=== PATIENT | female | born 1955 | race Caucasian/White ===

== ENCOUNTER 2021-01-28 09:39 | Emergency (ER) | payer MEDICARE, SELFPAY ==
--- NOTE | ~2021-01-28 | CT_ITS ---
EXAMINATION: CT ABDOMEN AND PELVIS WITHOUT CONTRAST CLINICAL INFORMATION: Right flank and abdominal pain evaluate for kidney stone/appendicitis COMPARISON: None TECHNIQUE: Multidetector volumetric imaging was performed from the superior aspect of the liver through the pubic symphysis. Sagittal and coronal reformatted images were obtained on the technologist's workstation. This CT examination was performed using dose optimization techniques as appropriate, variously including the following: *Automated exposure control *Adjustment of mA and/or kV according to patient size (this includes techniques or standardized protocols for targeted exams where dose is matched to indication/reason for exam; i.e. extremities or head) *Use of iterative reconstruction technique DLP: 745.05 mGy-cm FINDINGS: LUNG BASES: There is a 0.6 cm nodular density along the posterior aspect of the right lower lobe (series 4, image 78).Reticular nodule opacities along the posterior peripheral lower lung bone likely represent atelectasis with an element of scarring. The heart is not enlarged. There is no pericardial effusion. Coronary artery calcifications are noted. LIVER, GALLBLADDER, AND BILIARY TREE: The liver is normal in size, shape, and attenuation. No focal hepatic lesion or biliary ductal dilatation is present. The gallbladder is unremarkable with no evidence of radiopaque gallstones, gallbladder wall thickening, or obvious pericholecystic inflammatory changes. PANCREAS: Fatty infiltration of the pancreas. SPLEEN: Unremarkable. ADRENAL GLANDS: Unremarkable. KIDNEYS AND URETERS: There is right-sided perinephric stranding with mild hydroureteronephrosis and mild right-sided perinephric stranding. No definite ureteral calculi is identified along the course of the right ureter. There is no left-sided nephrolithiasis or hydronephrosis. BLADDER: Unremarkable. GASTROINTESTINAL TRACT: Colonic diverticulosis without acute diverticulitis The small and large bowel are unremarkable. The appendix is normal in caliber without secondary signs of appendicitis. ABDOMINAL WALL: Tiny fat filled umbilical hernia. LYMPH NODES: Normal. VASCULAR: Dominantly aorta is nonaneurysmal. Atherosclerotic calcifications of the abdominal aorta and its branches are noted. PELVIC VISCERA: Coarse calcification in the right pelvis measuring 0.9 x 0.9 cm, possibly adnexal/ovarian in origin, nonspecific. OSSEOUS STRUCTURES: Multilevel degenerative changes of the thoracolumbar spine greatest L3-L4. Suggestion of anterior wedging of T11, age indeterminate. Very mild grade 1 anterolisthesis of L4 on L5. Levocurvature of the lower lumbar spine. 3 mm bone island in the left femoral head. No large lytic or blastic lesions. CT/CT abdomen pelvis wo con IMPRESSION: 1. Right-sided perinephric stranding with mild hydroureteronephrosis and mild right-sided perinephric stranding. No definite ureteral calculi is identified along the course of the right ureter. Findings may represents a recently passed calculus though no intraluminal urinary bladder calculus is identified. Correlation for possible passage of stone. 2. Visualized appendix is normal in caliber without secondary signs of appendicitis. 3. 0.6 cm pleural based nodular density along the posterior aspect of the right lower lobe. Additional reticular nodule opacities along the posterior peripheral lower lung bone likely represent atelectasis with an element of scarring though pleural-based nodular density is not excluded. 4. Coarse calcification in the right pelvis measuring 0.9 x 0.9 cm, possibly adnexal/ovarian in origin, nonspecific. 5. Fatty infiltration of the pancreas 6. Colonic diverticulosis without acute diverticulitis. 7. Multilevel degenerative changes of the thoracolumbar spine greatest at L3-L4 with suggestion of anterior wedging of T11, age indeterminate.
[2021-01-28 09:45] VITALS: BP 223/101; PULSE 79; RESP 18; TEMP 36.6; O2SAT 97; BMI 26.6
--- NOTE | 2021-01-28 09:49 | ED.ABDPAIN ---
HPI - Abdominal Pain General Chief Complaint: Abdominal Pain Stated Complaint: Flank Pain Time Seen by Provider: 01/28/21 09:49 History of Present Illness HPI narrative: Patient presents for of onset of severe right flank pain and vomiting which began 2 hours ago, for the past 2 days preceding this she has had some dysuria some burning with urination and some frequency She denies fever or chills she has had no injury, no history of kidney stones Related Data Previous Rx's Medication Instructions Recorded cefuroxime axetil 500 mg PO BID #14 tab 01/28/21 ibuprofen 600 mg PO Q6H PRN #14 tab 01/28/21 oxycodone 5 mg PO Q6H PRN #14 tab 01/28/21 Allergies Allergy/AdvReac Type Severity Reaction Status Date / Time egg [EGGS] Allergy Mild DIARRHEA Verified 01/31/21 09:43 eggs Allergy Unknown Stomach Verified 01/31/21 09:43 Upset Review of Systems Review of Systems Positive for right flank pain and dysuria and vomiting Negatives are no fever no chills no dizziness no weakness no confusion no headache no neck pain no chest pain no shortness of breath no diarrhea no skin rash no leg swelling no numbness or weakness Physical Exam Vital Signs: Vital Signs: Last Vital Signs Temp 97.8 F 01/28/21 12:26 Pulse 90 01/28/21 14:00 Resp 18 01/28/21 14:00 BP 153/71 H 01/28/21 12:26 Pulse Ox 91 L 01/28/21 12:26 Body Mass Index 26.6 General appearance is very uncomfortable, writhing in the bed but a and O x3 and cooperative The head is normocephalic atraumatic Mucous membranes are moist Neck is supple The chest is clear Abdominal exam there is some right groin and suprapubic tenderness, there is right CVA tenderness and right flank tenderness Extremities is full range of motion x4 without edema Skin no rashes Neuro no focal deficit Course Course Course Narrative: The patient was hydrated and treated with 3 doses of morphine which brought good relief, she was treated with IV Rocephin for possible pyelonephritis, her nausea was well controlled with Zofran and she was able to tolerate p.o. With treatment of her pain her blood pressure came down an initial elevated blood pressures attributed pain Patient is very improved tolerating p.o. and trial outpatient antibiotics for treatment of UTI CT T showed some indications that she may have passed a stone which would account for her abrupt onset of severe pain MDM - Abdominal Pain Lab Data Attestation: I reviewed the patient's lab results. Result diagrams: 01/28/21 09:53 01/28/21 09:53 Labs: Lab Results 01/28/21 01/28/21 01/28/21 Range/Units 09:53 09:53 12:28 WBC 9.8 (4.8-10.8) X10*3/uL RBC 4.11 L (4.20-5.50) X10*6/uL Hgb 13.1 (12.0-16.0) g/dl Hct 40.0 (37-47) % MCV 97.3 (80-98) fL MCH 31.9 (27.0-33.0) pg MCHC 32.8 (31.0-35.0) g/dl RDW 14.4 (11.0-16.0) % Plt Count 276 (160-400) X10*3/uL MPV 12.1 (9.4-12.3) fL Immature Gran % (Auto) 0.3 (0.0-0.4) % Neut % (Auto) 72.5 (45-73) % Lymph % (Auto) 18.5 L (20-40) % [place] % (Auto) 6.5 (2-11) % Eos % (Auto) 1.6 (0-4) % Baso % (Auto) 0.6 (0-2) % Lymph # (Auto) 1.8 (1.2-4.9) X10*3/uL [place] # (Auto) 0.6 (0.1-1.2) X10*3/uL Eos # (Auto) 0.2 (0.0-0.4) X10*3/uL Baso # (Auto) 0.1 (0.0-0.2) X10*3/uL Abs Immat Gran (auto) 0.03 (0.00-0.03) X10*3/uL Absolute Neuts (auto) 7.1 (2.0-8.3) X10*3/uL Absolute Nucleated RBC 0.000 (0.0-0.012) X10*3/uL Nucleated RBC % (auto) 0.0 (0.0-0.2) /100WBC Sodium 138 (135-145) mmol/L Potassium 4.2 (3.3-5.1) mmol/L Chloride 106 (96-108) mmol/L Carbon Dioxide 23 (22-29) mmol/L Anion Gap 13 (12-20) BUN 34 H (9-16) mg/dL Creatinine 1.16 (0.5-1.4) mg/dL Estim Creat Clear Calc 48.2 Estimated GFR 47 Random Glucose 383 H* (60-115) mg/dL Calcium 9.4 (8.4-10.2) mg/dL Total Bilirubin 0.5 (0.0-1.0) mg/dL Direct Bilirubin 0.2 (0.0-0.5) mg/dL AST 16 (5-31) U/L ALT 21 (0-31) U/L Alkaline Phosphatase 127 H (39-117) U/L Total Protein 6.6 (6.5-8.0) g/dL Albumin 4.1 (3.5-5.0) g/dL Lipase 98 H (8-78) U/L Urine Color YELLOW Urine Appearance CLOUDY Urine pH 5.5 (5.0-8.0) Ur Specific [place] 1.025 (1.005-1.025) Urine Protein 2+ H (NEG-TRACE) MG/DL Urine Glucose (UA) >=1000 H (NEG) MG/DL Urine Ketones NEG (NEG) MG/DL Urine Blood 3+ H (NEG) Urine Nitrite NEG (NEG) Ur Leukocyte Esterase TRACE H (NEG) Urine RBC 10-14 H (0) /HPF Urine WBC 50-75 H (0-4) /HPF Ur Squamous Epith Cells NONE /LPF Urine Bacteria 4+ /LPF Urine Sperm NOTED Imaging Data CT scan - abdomen: Radiologist's impression: ER #: [id number] CT/CT abdomen pelvis wo con IMPRESSION: 1. Right-sided perinephric stranding with mild hydroureteronephrosis and mild right-sided perinephric stranding. No definite ureteral calculi is identified along the course of the right ureter. Findings may represents a recently passed calculus though no intraluminal urinary bladder calculus is identified. Correlation for possible passage of stone. 2. Visualized appendix is normal in caliber without secondary signs of appendicitis. 3. 0.6 cm pleural based nodular density along the posterior aspect of the right lower lobe. Additional reticular nodule opacities along the posterior peripheral lower lung bone likely represent atelectasis with an element of scarring though pleural-based nodular density is not excluded. 4. Coarse calcification in the right pelvis measuring 0.9 x 0.9 cm, possibly adnexal/ovarian in origin, nonspecific. 5. Fatty infiltration of the pancreas 6. Colonic diverticulosis without acute diverticulitis. 7. Multilevel degenerative changes of the thoracolumbar spine greatest at L3-L4 with suggestion of anterior wedging of T11, age indeterminate. Discharge Plan Discharge Clinical Impression: Kidney stone, Urinary tract infection Patient Disposition: Home, Self-Care Additional Instructions: CT showed that it is likely that you just passed a kidney stone Urinalysis showed you have a urinary tract infection Drink plenty of fluids, take antibiotic as prescribed Return to ER any time for uncontrolled vomiting, pain, fever, any worse condition or any concerns Prescriptions: New cefuroxime axetil 500 mg tablet 500 mg PO BID Qty: 14 RF: 0 ibuprofen 600 mg tablet 600 mg PO Q6H PRN (Reason: pain) Qty: 14 RF: 0 oxycodone 5 mg tablet 5 mg PO Q6H PRN (Reason: pain) Qty: 14 RF: 0 Stand Alone Forms: Work/School Release Interventions: ED Discharge Assessment Last Done: 01/28/21 15:58 Discharge Date/Time: 01/28/21 15:59 [facility] Past Medical History Source: nursing notes reviewed Medical History No known health problems Social History Social History Household Members: Spouse and Family Housing: House Do you presently have visiting nurse or other home services: No Alcohol intake: current Alcohol intake frequency: holidays/special occasions only Smoking Status: Former smoker Tobacco Type: Cigarette Smoked in Last 30 Days: No Patient Interested in Nicotine Replacement: No Patient Given Instructions on How to Stop Smoking: No Second Hand Smoke Exposure: Yes Use of substances other than those prescribed or required for medical reasons: Yes Substance Use Type: Marijuana Substance Use Frequency: Occasionally Last Used Substance: Weeks (ago) Currently Displaying Signs/Symptoms of Drug Intoxication Withdrawal: No Any prior treatment program specific to substance use: No Have you been hit, kicked, punched, or otherwise hurt by someone within the past year? If so, by whom?: No Do you feel safe in your current relationship?: No Is there a partner from a previous relationship who is making you feel unsafe now?: No Are you made to feel afraid or neglected: No Advance Directives: No Advance Directives Information Provided: No Advance Directives on File: No Do you have thoughts of harming others: None Do you have a plan to hurt others: No Plan Recently lost weight without trying: No service: No Current occupational status: employed
[2021-01-28 09:57] LABS: MANUAL DIFF FLAG NO
[2021-01-28] MEDS: Morphine Sulfate 4 MG/ML CARTRIDGE IVPUSH ×4 (10:01→13:06)
[2021-01-28] MEDS: Ketorolac Tromethamine 30 MG/ML VIAL IVPUSH (10:03)
[2021-01-28] MEDS: 0.9 % Sodium Chloride 1,000 ML 999 ML IVCONT (10:03)
[2021-01-28] MEDS: ondansetron HCL 4 MG/2 ML VIAL IVPUSH ×2 (10:06→13:06)
[2021-01-28 10:22] LABS: Basophils Absolute Auto 0.1 X10*3/uL (0.0-0.2); Basophils Percent Auto 0.6 % (0-2); Eosinophils Absolute Auto 0.2 X10*3/uL (0.0-0.4); Eosinophils Percent Auto 1.6 % (0-4); Hemoglobin 13.1 g/dl (12.0-16.0); Imm Gran Abs Auto 0.03 X10*3/uL (0.00-0.03); Imm Gran Pct Auto 0.3 % (0.0-0.4); Lymphocytes Absolute Auto 1.8 X10*3/uL (1.2-4.9); Lymphocytes Percent Auto 18.5 % (20-40); Mean Corpuscular HGB Conc 32.8 g/dl (31.0-35.0); Mean Corpuscular Hemoglobin 31.9 pg (27.0-33.0); Mean Corpuscular Volume 97.3 fL (80-98); Mean Platelet Volume 12.1 fL (9.4-12.3); Monocytes Absolute Auto 0.6 X10*3/uL (0.1-1.2); Monocytes Percent Auto 6.5 % (2-11); Neutrophils Absolute Auto 7.1 X10*3/uL (2.0-8.3); Neutrophils Percent Auto 72.5 % (45-73); Platelet Count 276 X10*3/uL (160-400); Red Blood Count 4.11 X10*6/uL (4.20-5.50); Red Cell Distribution Width 14.4 % (11.0-16.0); White Blood Count 9.8 X10*3/uL (4.8-10.8)
[2021-01-28 10:47] LABS: Glucose Random 383 mg/dL (60-115)
[2021-01-28 10:48] LABS: Alanine Aminotransferase 21 U/L (0-31); Albumin Level 4.1 g/dL (3.5-5.0); Alkaline Phosphatase 127 U/L (39-117); Anion Gap 13 (12-20); Aspartate Amino Transferase 16 U/L (5-31); Bilirubin Direct 0.2 mg/dL (0.0-0.5); Bilirubin Total 0.5 mg/dL (0.0-1.0); Blood Urea Nitrogen 34 mg/dL (9-16); Calcium 9.4 mg/dL (8.4-10.2); Carbon Dioxide 23 mmol/L (22-29); Chloride 106 mmol/L (96-108); Creatinine Clr Calc Pharmacy 48.2; Estimated Glomerular Filt Rate 47; Potassium 4.2 mmol/L (3.3-5.1); Sodium 138 mmol/L (135-145); Total Protein 6.6 g/dL (6.5-8.0)
--- NOTE | 2021-01-28 10:57 | PC.NURSE ---
critical lab - glucoses 383. Reported to Ady, primary RN and charge nurse.
[2021-01-28 11:04] LABS: Lipase 98 U/L (8-78)
[2021-01-28 12:26] VITALS: BP 153/71; PULSE 95; RESP 18; TEMP 36.6; O2SAT 91
[2021-01-28 12:40] LABS: Glucose Urine UA >=1000 MG/DL (NEG); Leukocyte Esterase Urine TRACE (NEG); Nitrite Urine NEG (NEG); PH 5.5 (5.0-8.0); Specific Gravity - Urine 1.025 (1.005-1.025); UACC Culture Trigger YES; Urine Blood 3+ (NEG); Urine Ketones NEG (NEG); Urine Protein 2+ MG/DL (NEG-TRACE)
[2021-01-28 12:45] LABS: Appearance Urine CLOUDY; Color Urine YELLOW
[2021-01-28 12:58] LABS: Bacteria Urine 4+ /LPF; WBC Urine 50-75 /HPF (0-4)
[2021-01-28 12:59] LABS: Sperm Urine NOTED
[2021-01-28 14:00] VITALS: PULSE 90; RESP 18
[2021-01-28] MEDS: cefTRIAXone sodium 1 GM in 0.9 % Sodium Chloride 50 ML IV (14:09)
== END 2021-01-28 15:59 | disposition home or self-care (01) ==
PROVIDERS: Physician Assistant Medical; Emergency Provider Emergency Medicine; PCP Hospitalist
DX: N20.0 Calculus of kidney (principal); N39.0 Urinary tract infection, site not specified
CPT/HCPCS: 36415; 74176; 80048; 80076; 81001; 81003; 83690; 85025; 87040; 87077; 87086; 87088; 87186; 87205; 99284; J0696; J1885; J2270; J2405

== ENCOUNTER 2021-01-30 12:11 | Inpatient (IN) | payer MEDICARE, OTHER, SELFPAY ==
[2021-01-30 12:30] VITALS: BP 162/62; PULSE 77; RESP 18; TEMP 36.9; O2SAT 94; BMI 29.2
--- NOTE | 2021-01-30 14:19 | ED_ITS ---
HPI - General Adult General Chief complaint: Back Pain/Injury Stated complaint: FLANK PAIN Time Seen by Provider: 01/30/21 13:36 Source: patient and family (, Roger was at the patient's bedside) Mode of arrival: ambulatory Limitations: no limitations History of Present Illness HPI narrative: 65-year-old female who presents emergency department for evaluation of right flank pain. The patient states that she had hematuria on Friday (4 days prior to evaluation). She then developed right flank pain 3 da ys prior to evaluation. The pain came on suddenly. She states the pain was a stabbing constant pain which was in her right flank and radiated to her right abdomen. She had associated nausea and vomiting. She was seen in the emergency department on 01/28/2021 and was worked up for possible kidney stone. The patient had a CT scan of the abdomen and pelvis which revealed right-sided perinephric stranding with mild hydronephrosis. Her urine microscopic evaluation revealed 10-14 WBCs 50-75 RBCs and 4+ bacteria. The patient states that she received 3 doses of morphine with improvement of her pain. She was discharged home on cefuroxime 500 mg twice a day ibuprofen 600 mg 3 times a day and oxycodone 5 mg every 4 hours as needed for pain. She states that since being home, she has continued to have severe right flank pain. She states she has been feeling weak. She denied fever, chills, frequency, urgency or dysuria. She has had persistent nausea and vomiting, she has had no appetite. Patient returned today for re-evaluation since she was not feeling better. In reviewing her cultures, the patient grew E coli greater than 100,000 colony- forming units which was pansensitive including being sensitive to ceftriaxone. The patient had 2 sets of blood cultures which are growing Gram-negative rods. Related Data Previous Rx's Medication Instructions Recorded cefuroxime axetil 500 mg PO BID #14 tab 01/28/21 ibuprofen 600 mg PO Q6H PRN #14 tab 01/28/21 oxycodone 5 mg PO Q6H PRN #14 tab 01/28/21 Allergies Allergy/AdvReac Type Severity Reaction Status Date / Time egg [EGGS] Allergy Mild DIARRHEA Unverified 07/27/20 15:15 eggs Allergy Unknown Unverified 06/23/20 00:00 Review of Systems Review of Systems: Yes all other systems are reviewed and are negative [facility] Past Medical History [facility] Narrative: Patient has history of diabetes mellitus, hypertension and asthma. She denies tobacco use, she occasionally drinks alcohol, she denies drug use. She is and lives with her remained who is here in the emergency department with her. Medical History (Updated 01/30/21 @ 16:43 by Trey Fish MD) No known health problems Social History Social History Alcohol intake: current Alcohol intake frequency: holidays/special occasions only Smoking Status: Never smoker Use of substances other than those prescribed or required for medical reasons: Yes Substance Use Type: Marijuana Substance Use Frequency: Occasionally Advance Directives: No Advance Directives Information Provided: No Physical Exam Vital Signs: Vital Signs: Last Vital Signs Temp 98.4 F 01/30/21 16:48 Pulse 86 01/30/21 16:48 Resp 18 01/30/21 16:48 BP 153/61 H 01/30/21 16:48 Pulse Ox 94 01/30/21 16:48 Body Mass Index 29.2 Const: General: cooperative, healthy appearing and in distress moderate (Secondary to her right-sided pain.) Orientation/consciousness: oriented to person and oriented to place Limitations: no limitations HENMT: Head: Yes normal to inspection, Yes normocephalic and Yes atraumatic Ears: external ears normal General nose exam: Normal external nose present Face and sinus: Yes normal facial exam Mouth: Normal oral and palatal mucosa present Throat: Yes posterior oropharynx normal Eyes: Periorbital: periorbital findings normal Eyelids: Yes eyelids normal Conjunctivae: conjunctivae normal Sclerae: sclerae normal Corneas: corneas normal Pupils: Equal, round and reactive pupils present Direct Ophthalmoscopy: normal light reflex Neck: Neck: Yes full ROM, Yes no lymphadenopathy, Yes no meningeal signs, Yes trachea midline and Yes supple Chest: Chest palpation & inspection: normal inspection of the chest and normal palpation of entire chest wall Resp: Effort & Inspection: normal respiratory effort and able to speak in complete sentences Auscultation: clear to auscultation bilaterally Cardio: Rate: regular rate Rhythm: regular rhythm Heart sounds: S1 normal heart sound present, S2 normal heart sound present and no murmurs GI: Inspection: Yes normal to inspection Palpation (GI): Soft to palpation, Tenderness to palpation present (GI) in the RLQ (Mild to moderate), no guarding, not rigid and No hepatosplenomegaly present : General: Yes CVA tenderness on the right (Moderate) Back/Spine/Pelvis: Back: CVA tenderness Cervical Spine: normal cervical lordosis Thoracic/Lumbar Spine: thoracic and lumbar spine normal to inspection Skin: Lesions: no lesions Rashes: no rashes Wounds: no wounds Neuro: General: oriented to person, oriented to place and no meningeal signs Cranial nerves: Yes CN's II-XII intact bilaterally and Yes Equal, round and reactive pupils present Cognition (Neuro): normal cognition Motor exam (neuro): 5/5 motor strength present throughout Extrem: General: Yes normal to inspection and Yes full ROM Psych: Appearance: well kempt Mental Status: mental status grossly normal Speech and movement: Normal speech and movement present Affect: normal affect Attitude: cooperative Thought process: Normal thought process present Thought content: Normal thought content present Course Course Course Narrative: 65-year-old female who presents emergency department for evaluation of persistent right-sided flank pain x5 days, this is the patient's 2nd ED visit, she was seen initially on 01/28/2021. The patient's examination revealed that she was afebrile but hypertensive with a blood pressure of 162/62. She did have right CVA tenderness and right lower quadrant tenderness. In reviewing her previous visit she did grow E coli greater than 100,000 colony- forming units out of a urine and she now has 2 blood cultures that are positive for Gram-negative rods suggesting that she is bacteremic. I did order a CBC, CMP, lactic acid, blood cultures. She was ordered to get normal saline x1 L , morphine 4 mg IV, Zofran 4 mg IV and normal saline x1 L. 1639: Patient's laboratory evaluation [place] [address], mild anemia with an H&H of 11.2 and 34.8. This is changed compared to 01/29/2020 under H&H was 13.1 and 40.0. I will add a type and screen. Patient's laboratory evaluation revealed a high potassium of 5.8, elevated BUN and creatinine of 40 a 2.17. Glucose was elevated to 76. LFTs were normal. Urinalysis revealed 2+ blood negative leukocyte esterase negative nitrates. Microscopic however revealed 10-14 WBCs and 10-14 RBCs with 1+ bacteria. Given these findings, I believe the patient is dehydrated volume depleted and this may explain her elevated BUN and creatinine and elevated potassium. Also I believe that the patient has only a partially treated right-sided pyelonephritis. Given the fact that the patient did have a set of blood cultures from previous visit that are now positive for Gram-negative rods, I suspect the patient is bacteremic. The patient has a normal lactic acid and is not hypotensive therefore I do not think that the patient has sepsis. Patient was ordered to get 3 L of normal saline IV. I will discuss the patient's presentation with the covering hospitalist. Her pain did improve with morphine 4 mg IV. 1735: I discussed the patient with Dr. Beck, the patient will have a repeat CBC and BMP after her 3rd liter of normal saline. The patient will be admitted for further treatment. Medical Decision Making Lab Data Result diagrams: 01/30/21 14:20 01/30/21 14:19 Labs: Lab Results 01/30/21 01/30/21 01/30/21 Range/Units 14:19 14:19 14:19 WBC (4.8-10.8) X10*3/uL RBC (4.20-5.50) X10*6/uL Hgb (12.0-16.0) g/dl Hct (37-47) % MCV (80-98) fL MCH (27.0-33.0) pg MCHC (31.0-35.0) g/dl RDW (11.0-16.0) % Plt Count (160-400) X10*3/uL MPV (9.4-12.3) fL Immature Gran % (Auto) (0.0-0.4) % Neut % (Auto) (45-73) % Lymph % (Auto) (20-40) % [place] % (Auto) (2-11) % Eos % (Auto) (0-4) % Baso % (Auto) (0-2) % Lymph # (Auto) (1.2-4.9) X10*3/uL [place] # (Auto) (0.1-1.2) X10*3/uL Eos # (Auto) (0.0-0.4) X10*3/uL Baso # (Auto) (0.0-0.2) X10*3/uL Abs Immat Gran (auto) (0.00-0.03) X10*3/uL Absolute Neuts (auto) (2.0-8.3) X10*3/uL Absolute Nucleated RBC (0.0-0.012) X10*3/uL Nucleated RBC % (auto) (0.0-0.2) /100WBC Sodium 137 (135-145) mmol/L Potassium 5.8 H D (3.3-5.1) mmol/L Chloride 106 (96-108) mmol/L Carbon Dioxide 15 L (22-29) mmol/L Anion Gap 22 H (12-20) BUN 48 H (9-16) mg/dL Creatinine 2.17 H (0.5-1.4) mg/dL Estim Creat Clear Calc 25.0 Estimated GFR 23 Random Glucose 276 H (60-115) mg/dL Lactic Acid 0.7 (0.5-2.0) mmol/L Calcium 8.8 D (8.4-10.2) mg/dL Total Bilirubin 0.3 (0.0-1.0) mg/dL AST 18 (5-31) U/L ALT 15 (0-31) U/L Alkaline Phosphatase 86 D (39-117) U/L Total Protein 6.3 L (6.5-8.0) g/dL Albumin 3.6 (3.5-5.0) g/dL Urine Color Urine Appearance Urine pH (5.0-8.0) Ur Specific [place] (1.005-1.025) Urine Protein (NEG-TRACE) MG/DL Urine Glucose (UA) (NEG) MG/DL Urine Ketones (NEG) MG/DL Urine Blood (NEG) Urine Nitrite (NEG) Ur Leukocyte Esterase (NEG) Urine RBC (0) /HPF Urine WBC (0-4) /HPF Ur Squamous Epith Cells /LPF Urine Bacteria /LPF Urine Mucus /LPF COVID-19 ([facility]) Negative (Negative) COVID-19 Clin Com See Note 01/30/21 01/30/21 Range/Units 14:20 14:56 WBC 18.8 H (4.8-10.8) X10*3/uL RBC 3.52 L (4.20-5.50) X10*6/uL Hgb 11.2 L (12.0-16.0) g/dl Hct 34.8 L (37-47) % MCV 98.9 H (80-98) fL MCH 31.8 (27.0-33.0) pg MCHC 32.2 (31.0-35.0) g/dl RDW 14.9 (11.0-16.0) % Plt Count 186 D (160-400) X10*3/uL MPV 12.7 H (9.4-12.3) fL Immature Gran % (Auto) 1.7 H (0.0-0.4) % Neut % (Auto) 89.8 H (45-73) % Lymph % (Auto) 3.9 L (20-40) % [place] % (Auto) 4.3 (2-11) % Eos % (Auto) 0.1 (0-4) % Baso % (Auto) 0.2 (0-2) % Lymph # (Auto) 0.7 L (1.2-4.9) X10*3/uL [place] # (Auto) 0.8 (0.1-1.2) X10*3/uL Eos # (Auto) 0.0 (0.0-0.4) X10*3/uL Baso # (Auto) 0.0 (0.0-0.2) X10*3/uL Abs Immat Gran (auto) 0.32 H (0.00-0.03) X10*3/uL Absolute Neuts (auto) 16.9 H (2.0-8.3) X10*3/uL Absolute Nucleated RBC 0.000 (0.0-0.012) X10*3/uL Nucleated RBC % (auto) 0.0 (0.0-0.2) /100WBC Sodium (135-145) mmol/L Potassium (3.3-5.1) mmol/L Chloride (96-108) mmol/L Carbon Dioxide (22-29) mmol/L Anion Gap (12-20) BUN (9-16) mg/dL Creatinine (0.5-1.4) mg/dL Estim Creat Clear Calc Estimated GFR Random Glucose (60-115) mg/dL Lactic Acid (0.5-2.0) mmol/L Calcium (8.4-10.2) mg/dL Total Bilirubin (0.0-1.0) mg/dL AST (5-31) U/L ALT (0-31) U/L Alkaline Phosphatase (39-117) U/L Total Protein (6.5-8.0) g/dL Albumin (3.5-5.0) g/dL Urine Color YELLOW Urine Appearance HAZY Urine pH 5.5 (5.0-8.0) Ur Specific [place] >= 1.030 H (1.005-1.025) Urine Protein 2+ H (NEG-TRACE) MG/DL Urine Glucose (UA) 250 H (NEG) MG/DL Urine Ketones 15 (NEG) MG/DL Urine Blood 2+ H (NEG) Urine Nitrite NEG (NEG) Ur Leukocyte Esterase NEG (NEG) Urine RBC 10-14 H (0) /HPF Urine WBC 10-14 H (0-4) /HPF Ur Squamous Epith Cells 2+ /LPF Urine Bacteria 1+ /LPF Urine Mucus 2+ /LPF COVID-19 ([facility]) (Negative) COVID-19 Clin Com Discharge Plan Discharge Clinical Impression: Pyelonephritis of right kidney, Bacteremia, E-coli UTI, Dehydration, Acute hyperkalemia Patient Disposition: Admitted As Inpatient
[2021-01-30 14:25] LABS: MANUAL DIFF FLAG NO
[2021-01-30 14:33] LABS: Basophils Percent Auto 0.2 % (0-2); Eosinophils Percent Auto 0.1 % (0-4); Hematocrit 34.8 % (37-47); Hemoglobin 11.2 g/dl (12.0-16.0); Imm Gran Abs Auto 0.32 X10*3/uL (0.00-0.03); Imm Gran Pct Auto 1.7 % (0.0-0.4); Lymphocytes Absolute Auto 0.7 X10*3/uL (1.2-4.9); Lymphocytes Percent Auto 3.9 % (20-40); Mean Corpuscular HGB Conc 32.2 g/dl (31.0-35.0); Mean Corpuscular Hemoglobin 31.8 pg (27.0-33.0); Mean Corpuscular Volume 98.9 fL (80-98); Mean Platelet Volume 12.7 fL (9.4-12.3); Monocytes Absolute Auto 0.8 X10*3/uL (0.1-1.2); Monocytes Percent Auto 4.3 % (2-11); Neutrophils Absolute Auto 16.9 X10*3/uL (2.0-8.3); Neutrophils Percent Auto 89.8 % (45-73); Platelet Count 186 X10*3/uL (160-400); Red Blood Count 3.52 X10*6/uL (4.20-5.50); Red Cell Distribution Width 14.9 % (11.0-16.0); White Blood Count 18.8 X10*3/uL (4.8-10.8)
[2021-01-30] MEDS: ondansetron HCL 4 MG/2 ML VIAL IVPUSH ×3 (14:41→22:01)
[2021-01-30] MEDS: Morphine Sulfate 4 MG/ML CARTRIDGE IVPUSH ×3 (14:41→22:02)
[2021-01-30 14:42] LABS: COVID-19 Test Negative (Negative)
[2021-01-30] MEDS: cefTRIAXone sodium 1 GM in 0.9 % Sodium Chloride 50 ML IV (14:42)
[2021-01-30] MEDS: 0.9 % Sodium Chloride 1,000 ML 999 ML IV ×3 (14:42→16:48)
[2021-01-30 14:43] VITALS: BP 169/66; PULSE 84; RESP 18; TEMP 36.9; O2SAT 95
[2021-01-30 14:43] LABS: Lactic Acid 0.7 mmol/L (0.5-2.0)
--- NOTE | 2021-01-30 14:48 | PC.NURSE ---
patient a&ox3, at bedside, iv inserted, labs drawn, vss, pt medicated per order, covid swab obtained, will continue to monitor.
[2021-01-30 14:55] LABS: Alanine Aminotransferase 15 U/L (0-31); Albumin Level 3.6 g/dL (3.5-5.0); Alkaline Phosphatase 86 U/L (39-117); Anion Gap 22 (12-20); Aspartate Amino Transferase 18 U/L (5-31); Bilirubin Total 0.3 mg/dL (0.0-1.0); Blood Urea Nitrogen 48 mg/dL (9-16); Calcium 8.8 mg/dL (8.4-10.2); Carbon Dioxide 15 mmol/L (22-29); Chloride 106 mmol/L (96-108); Estimated Glomerular Filt Rate 23; Glucose Random 276 mg/dL (60-115); Potassium 5.8 mmol/L (3.3-5.1); Sodium 137 mmol/L (135-145); Total Protein 6.3 g/dL (6.5-8.0)
[2021-01-30 15:06] LABS: Glucose Urine UA 250 MG/DL (NEG); Leukocyte Esterase Urine NEG (NEG); Nitrite Urine NEG (NEG); PH 5.5 (5.0-8.0); Specific Gravity - Urine >= 1.030 (1.005-1.025); Urine Blood 2+ (NEG); Urine Ketones 15 MG/DL (NEG); Urine Protein 2+ MG/DL (NEG-TRACE)
[2021-01-30 15:08] LABS: Appearance Urine HAZY; Color Urine YELLOW
[2021-01-30 15:25] LABS: Bacteria Urine 1+ /LPF; Mucus Urine 2+ /LPF; Squamous Epithelial Cell Urine 2+ /LPF; UACC CULT YES
--- NOTE | 2021-01-30 15:31 | PC.NURSE ---
pt sleeping, woke to verbal stimulus, second liter hung per order, first continues to run as well, at bedside, will continue to monitor.
[2021-01-30 16:48] VITALS: BP 153/61; PULSE 86; RESP 18; TEMP 36.9; O2SAT 94
--- NOTE | 2021-01-30 16:49 | PC.NURSE ---
pt sleeping, woke to verbal stimulus, 3rd bag of ivf started-pt encouraged to keep arm straight, vitals stable at this time, pt currently has no pain, will continue to monitor.
--- NOTE | 2021-01-30 18:30 | PC.NURSE ---
pt medicated per order
[2021-01-30 18:32] VITALS: BP 153/67; PULSE 85; RESP 17; TEMP 36.7; O2SAT 94
--- NOTE | 2021-01-30 18:35 | PC.NURSE ---
patient a&ox3, medicated per order, vss, will continue to monitor.
--- NOTE | 2021-01-30 19:34 | PC.NURSE ---
phlebotomy called to obtain labs/t &s
[2021-01-30 19:52] LABS: MANUAL DIFF FLAG NO
[2021-01-30 19:57] LABS: Basophils Absolute Auto 0.1 X10*3/uL (0.0-0.2); Basophils Percent Auto 0.4 % (0-2); Imm Gran Abs Auto 0.27 X10*3/uL (0.00-0.03); Imm Gran Pct Auto 1.6 % (0.0-0.4); Lymphocytes Absolute Auto 1.3 X10*3/uL (1.2-4.9); Lymphocytes Percent Auto 7.6 % (20-40); Mean Corpuscular HGB Conc 32.4 g/dl (31.0-35.0); Mean Corpuscular Volume 98.8 fL (80-98); Mean Platelet Volume 12.5 fL (9.4-12.3); Monocytes Absolute Auto 0.7 X10*3/uL (0.1-1.2); Neutrophils Absolute Auto 14.8 X10*3/uL (2.0-8.3); Neutrophils Percent Auto 86.4 % (45-73); Platelet Count 173 X10*3/uL (160-400); Red Blood Count 3.44 X10*6/uL (4.20-5.50); White Blood Count 17.1 X10*3/uL (4.8-10.8)
[2021-01-30 20:11] LABS: Anion Gap 19 (12-20); Blood Urea Nitrogen 43 mg/dL (9-16); Calcium 7.9 mg/dL (8.4-10.2); Carbon Dioxide 14 mmol/L (22-29); Chloride 110 mmol/L (96-108); Estimated Glomerular Filt Rate 26; Glucose Random 254 mg/dL (60-115); Potassium 4.8 mmol/L (3.3-5.1); Sodium 138 mmol/L (135-145)
--- NOTE | 2021-01-30 20:35 | PC.NURSE ---
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
--- NOTE | 2021-01-30 21:26 | PC.NURSE ---
report given to floor however they state they will have to call us back as the bed is not ready
--- NOTE | 2021-01-30 21:56 | PC.NURSE ---
called floor to see if bed was ready, they stated about 15 more minutes per housekeeping, also sent a tiger text to dr. gong to obtain an order for nausea.
[2021-01-30 23:28] VITALS: BP 167/78; PULSE 75; RESP 18; TEMP 36.6; O2SAT 92
[2021-01-30] MEDS: Lactated Ringers 1,000 ML 100 ML IVCONT (23:35)
[2021-01-30] MEDS: Heparin Sodium,Porcine 5,000 UNIT/ML VIAL 5000 UNIT SUBCUT (23:36)
[2021-01-30] MEDS: 0.9 % Sodium Chloride Flush 3 ML SYRINGE IVFLUSH (23:38)
[2021-01-31] VITALS (8 sets, daily range): BP systolic 156–189; BP diastolic 72–81; PULSE 69–88; RESP 18–20; TEMP 36–36.9; O2SAT 90–97
--- NOTE | 2021-01-31 | ECG_ITS ---
Test Reason : PAUSES Blood Pressure : / mmHG Vent. Rate : 081 BPM Atrial Rate : 081 BPM P-R Int : 166 ms QRS Dur : 082 ms QT Int : 402 ms P-R-T Axes : 044 012 049 degrees QTc Int : 466 ms Normal sinus rhythm Nonspecific ST abnormality Borderline ECG No previous ECGs available Referred By: Abebe Palomino Electronically Signed By:ABEBE PALOMINO
--- NOTE | 2021-01-31 | ECG_ITS ---
Test Reason : Pause Blood Pressure : / mmHG Vent. Rate : 078 BPM Atrial Rate : 078 BPM P-R Int : 170 ms QRS Dur : 078 ms QT Int : 400 ms P-R-T Axes : 035 009 035 degrees QTc Int : 456 ms Normal sinus rhythm with sinus arrhythmia Normal ECG No significant changes when compared with the previous EKG of 31 january 2021 Referred By: Santiago Martinez Electronically Signed By:ABEBE PALOMINO
[2021-01-31] MEDS: Morphine Sulfate 4 MG/ML CARTRIDGE IVPUSH ×2 (01:49→08:32)
[2021-01-31 05:02] LABS: MANUAL DIFF FLAG NO
[2021-01-31 05:11] LABS: Basophils Absolute Auto 0.1 X10*3/uL (0.0-0.2); Basophils Percent Auto 0.4 % (0-2); Eosinophils Percent Auto 0.2 % (0-4); Hematocrit 32.5 % (37-47); Hemoglobin 10.5 g/dl (12.0-16.0); Imm Gran Abs Auto 0.14 X10*3/uL (0.00-0.03); Imm Gran Pct Auto 0.9 % (0.0-0.4); Lymphocytes Absolute Auto 1.1 X10*3/uL (1.2-4.9); Lymphocytes Percent Auto 7.2 % (20-40); Mean Corpuscular HGB Conc 32.3 g/dl (31.0-35.0); Mean Corpuscular Hemoglobin 31.7 pg (27.0-33.0); Mean Corpuscular Volume 98.2 fL (80-98); Mean Platelet Volume 12.8 fL (9.4-12.3); Monocytes Absolute Auto 0.8 X10*3/uL (0.1-1.2); Monocytes Percent Auto 5.1 % (2-11); Neutrophils Absolute Auto 13.6 X10*3/uL (2.0-8.3); Neutrophils Percent Auto 86.2 % (45-73); Platelet Count 182 X10*3/uL (160-400); Red Blood Count 3.31 X10*6/uL (4.20-5.50); Red Cell Distribution Width 14.7 % (11.0-16.0); White Blood Count 15.8 X10*3/uL (4.8-10.8)
[2021-01-31 05:38] LABS: Anion Gap 17 (12-20); Blood Urea Nitrogen 41 mg/dL (9-16); Calcium 8.1 mg/dL (8.4-10.2); Carbon Dioxide 17 mmol/L (22-29); Chloride 109 mmol/L (96-108); Creatinine Clr Calc Pharmacy 29.7; Estimated Glomerular Filt Rate 28; Glucose Random 221 mg/dL (60-115); Potassium 4.7 mmol/L (3.3-5.1); Sodium 138 mmol/L (135-145)
--- NOTE | 2021-01-31 06:07 | P.HPHOSP_ITS ---
History of Present Illness Date of Service: 01/30/21 Chief Complaint: Abdominal pain This is a 65-year-old female with no significant past medical history who presents to the hospital with abdominal pain. Of note patient was evaluated in the ED on the 28 of January for abdominal pain, found to have UTI and pyelon ephritis, started on antibiotics and sent home. She returns today stating that her pain persisted and she has severe right-sided flank pain, 10/10, radiating to the groin, associated with persistent nausea and vomiting, low oral intake and low appetite, feeling weak, but denies any fever or chills, urine symptoms insulin no urgency, dysuria or frequency. She denies any chest pain, no headache or change in vision, no palpitations, no cough, no shortness of breath, no lower extremity edema. Patient denies melena, bright red blood per rectum, hemoptysis, hematemesis, On arrival to the ED patient hemodynamically stable with no significant abnormal vitals For WBC count of 18.8, hemoglobin of 11.2, hematocrit of 34.8, sodium of 137, potassium of 5.8 which improved to 4.8 by the time I admitted the patient, BUN of 48, creatinine of 2.17 with a baseline of around 1.16 from January 28, UA that is still positive for WBC and some bacteria, and COVID negative Patient will be admitted for further management Review of Systems Review of Systems: Yes all other systems are reviewed and are negative [facility] Medical History No known health problems Social History Household Members: Spouse and Family Housing: House Do you presently have visiting nurse or other home services: No Alcohol intake: current Alcohol intake frequency: holidays/special occasions only Smoking Status: Former smoker Tobacco Type: Cigarette Smoked in Last 30 Days: No Patient Interested in Nicotine Replacement: No Patient Given Instructions on How to Stop Smoking: No Second Hand Smoke Exposure: Yes Use of substances other than those prescribed or required for medical reasons: Yes Substance Use Type: Marijuana Substance Use Frequency: Occasionally Last Used Substance: Weeks (ago) Currently Displaying Signs/Symptoms of Drug Intoxication Withdrawal: No Any prior treatment program specific to substance use: No Have you been hit, kicked, punched, or otherwise hurt by someone within the past year? If so, by whom?: No Do you feel safe in your current relationship?: No Is there a partner from a previous relationship who is making you feel unsafe now?: No Are you made to feel afraid or neglected: No Advance Directives: No Advance Directives Information Provided: No Advance Directives on File: No Do you have thoughts of harming others: None Do you have a plan to hurt others: No Plan Recently lost weight without trying: No Meds Allergies Allergy/AdvReac Type Severity Reaction Status Date / Time egg [EGGS] Allergy Mild DIARRHEA Unverified 07/27/20 15:15 eggs Allergy Unknown Unverified 06/23/20 00:00 Active Medications: Current Medications Generic Name Dose Route Start Last Admin Trade Name Freq PRN Reason Stop Dose Admin Acetaminophen 650 mg 01/30/21 20:14 Acetaminophen 325 Mg Tablet PO Q6H PRN Pain, Mild (Pain Scale 1-3) Docusate Sodium 100 mg 01/30/21 20:14 Docusate Sodium 100 Mg Capsule PO DAILY PRN Constipation Heparin Sodium (Porcine) 5,000 unit 01/30/21 22:00 01/30/21 23:36 Heparin Sodium,Porcine 5,000 Unit/Ml Vial SUBCUT 5,000 unit Q12H RONAK Administration Ceftriaxone Sodium 1 gm/ 50 mls @ 100 mls/hr 01/31/21 14:00 Sodium Chloride IV Q24H RONAK Lactated Ringer's 1,000 mls @ 100 mls/hr 01/30/21 21:45 01/30/21 23:35 Lr IVCONT 100 mls/hr .Q10H RONAK Administration Morphine Sulfate 4 mg 01/30/21 20:14 01/31/21 01:49 Morphine Sulfate 4 Mg/Ml Cartridge IVPUSH 4 mg Q4H PRN Administration Pain, Severe (Pain Scale 7-10) Ondansetron HCl 4 mg 01/30/21 21:54 01/30/21 22:01 Ondansetron Hcl 4 Mg/2 Ml Vial IVPUSH 4 mg Q8H PRN Administration Nausea and Vomiting Sodium Chloride 3 ml 01/31/21 00:00 01/30/21 23:38 0.9 % Sodium Chloride Flush 3 Ml Syringe IVFLUSH 3 ml QSHIFT RONAK Administration Physical Exam Vital Signs and Narrative: Vital Signs: Last Vital Signs Temp 97.9 F 03/24/21 03:53 Pulse 82 01/31/21 03:53 Resp 20 01/31/21 03:53 BP 164/78 H 01/31/21 03:53 Pulse Ox 94 01/31/21 03:53 Body Mass Index 29.2 Const: General: cooperative, no acute distress and ill appearing Orientation/consciousness: patient oriented x3 Eyes: General: appearance normal, both eyes and all related structures Resp: Effort & Inspection: normal respiratory effort and able to speak in complete sentences Auscultation: clear to auscultation bilaterally Cardio: Rate: regular rate Rhythm: regular rhythm GI: Palpation (GI): Soft to palpation Auscultation: normal bowel sounds Skin: General skin exam: no rashes or lesions noted Neuro: General: patient oriented x3 Cognition (Neuro): normal cognition Extrem: General: Yes normal to inspection and Yes no pedal edema Results Labs CBC and Chem 7: 01/31/21 04:31 01/31/21 04:31 Labs: Laboratory Results - last 24 hr 01/30/21 01/30/21 01/30/21 14:19 14:19 14:19 MCV MCH MCHC RDW Plt Count MPV Immature Gran % (Auto) Neut % (Auto) Lymph % (Auto) [place] % (Auto) Eos % (Auto) Baso % (Auto) Lymph # (Auto) [place] # (Auto) Eos # (Auto) Baso # (Auto) Abs Immat Gran (auto) Absolute Neuts (auto) Absolute Nucleated RBC Nucleated RBC % (auto) Anion Gap 22 H Estim Creat Clear Calc 25.0 Estimated GFR 23 Random Glucose 276 H Lactic Acid 0.7 Calcium 8.8 D Total Bilirubin 0.3 AST 18 ALT 15 Alkaline Phosphatase 86 D Total Protein 6.3 L Albumin 3.6 Urine Color Urine Appearance Urine pH Ur Specific [place] Urine Protein Urine Glucose (UA) Urine Ketones Urine Blood Urine Nitrite Ur Leukocyte Esterase Urine RBC Urine WBC Ur Squamous Epith Cells Urine Bacteria Urine Mucus COVID-19 (OSMAN) Negative COVID-19 Clin Com See Note Blood Type Antibody Screen 01/30/21 01/30/21 01/30/21 14:20 14:56 19:46 MCV 98.9 H MCH 31.8 MCHC 32.2 RDW 14.9 Plt Count 186 D MPV 12.7 H Immature Gran % (Auto) 1.7 H Neut % (Auto) 89.8 H Lymph % (Auto) 3.9 L [place] % (Auto) 4.3 Eos % (Auto) 0.1 Baso % (Auto) 0.2 Lymph # (Auto) 0.7 L [place] # (Auto) 0.8 Eos # (Auto) 0.0 Baso # (Auto) 0.0 Abs Immat Gran (auto) 0.32 H Absolute Neuts (auto) 16.9 H Absolute Nucleated RBC 0.000 Nucleated RBC % (auto) 0.0 Anion Gap 19 Estim Creat Clear Calc 28.0 Estimated GFR 26 Random Glucose 254 H Lactic Acid Calcium 7.9 L D Total Bilirubin AST ALT Alkaline Phosphatase Total Protein Albumin Urine Color YELLOW Urine Appearance HAZY Urine pH 5.5 Ur Specific [place] >= 1.030 H Urine Protein 2+ H Urine Glucose (UA) 250 H Urine Ketones 15 Urine Blood 2+ H Urine Nitrite NEG Ur Leukocyte Esterase NEG Urine RBC 10-14 H Urine WBC 10-14 H Ur Squamous Epith Cells 2+ Urine Bacteria 1+ Urine Mucus 2+ COVID-19 (OSMAN) COVID-19 Clin Com Blood Type Antibody Screen 01/30/21 01/30/21 01/31/21 19:47 19:47 04:31 MCV 98.8 H 98.2 H MCH 32.0 31.7 MCHC 32.4 32.3 RDW 15.0 14.7 Plt Count 173 182 MPV 12.5 H 12.8 H Immature Gran % (Auto) 1.6 H 0.9 H Neut % (Auto) 86.4 H 86.2 H Lymph % (Auto) 7.6 L 7.2 L [place] % (Auto) 4.0 5.1 Eos % (Auto) 0.0 0.2 Baso % (Auto) 0.4 0.4 Lymph # (Auto) 1.3 1.1 L [place] # (Auto) 0.7 0.8 Eos # (Auto) 0.0 0.0 Baso # (Auto) 0.1 0.1 Abs Immat Gran (auto) 0.27 H 0.14 H Absolute Neuts (auto) 14.8 H 13.6 H Absolute Nucleated RBC 0.000 0.000 Nucleated RBC % (auto) 0.0 0.0 Anion Gap Estim Creat Clear Calc Estimated GFR Random Glucose Lactic Acid Calcium Total Bilirubin AST ALT Alkaline Phosphatase Total Protein Albumin Urine Color Urine Appearance Urine pH Ur Specific [place] Urine Protein Urine Glucose (UA) Urine Ketones Urine Blood Urine Nitrite Ur Leukocyte Esterase Urine RBC Urine WBC Ur Squamous Epith Cells Urine Bacteria Urine Mucus COVID-19 (OSMAN) COVID-19 [employer] Blood Type O Positive Antibody Screen NEGATIVE 01/31/21 04:31 MCV MCH MCHC RDW Plt Count MPV Immature Gran % (Auto) Neut % (Auto) Lymph % (Auto) [place] % (Auto) Eos % (Auto) Baso % (Auto) Lymph # (Auto) [place] # (Auto) Eos # (Auto) Baso # (Auto) Abs Immat Gran (auto) Absolute Neuts (auto) Absolute Nucleated RBC Nucleated RBC % (auto) Anion Gap 17 Estim Creat Clear Calc 29.7 Estimated GFR 28 Random Glucose 221 H Lactic Acid Calcium 8.1 L Total Bilirubin AST ALT Alkaline Phosphatase Total Protein Albumin Urine Color Urine Appearance Urine pH Ur Specific [place] Urine Protein Urine Glucose (UA) Urine Ketones Urine Blood Urine Nitrite Ur Leukocyte Esterase Urine RBC Urine WBC Ur Squamous Epith Cells Urine Bacteria Urine Mucus COVID-19 (OSMAN) COVID-19 [employer] Blood Type Antibody Screen Assessment and Plan (1) Pyelonephritis of right kidney: Status: Acute (2) Bacteremia: Status: Acute (3) E-coli UTI: Status: Acute (4) Dehydration: Status: Acute (5) Acute hyperkalemia: Status: Acute (6) Anemia: Qualifiers: Anemia type: unspecified type Qualified Code(s): D64.9 - Anemia, unspecified Status: Acute (7) SUPRIYA (acute kidney injury): Status: Acute 65-year-old female with no significant past medical history presents to the hospital initially on January 28 with complaints of right flank pain, at that time she was diagnosed with UTI and pyelonephritis and sent home on p.o. antibiotics, returns today stating that the pain is persistent with nausea vomiting, and low oral intake # right pyelonephritis - CT abdomen done on 01/28 showed perinephric stranding and a positive UA - will start patient on IV antibiotics - or cultures from the showing Gram-negative rods - cultures have been recollected in the ED - no evidence of acute sepsis - will start IV fluids # bacteremia - most likely from UTI/pyelo -patient's blood cultures from 01/28 showing Gram-negative rods - patient on IV antibiotics at this time - will follow final cultures # SUPRIYA - most likely a combination of dehydration as well as pyelonephritis/UTI - started on IV fluids - follow BMP # acute hyperkalemia - secondary to SUPRIYA - resolved with IV fluids DVT prophylaxis: Heparin subQ
[2021-01-31] MEDS: ondansetron HCL 4 MG/2 ML VIAL IVPUSH ×3 (08:30→22:39)
[2021-01-31 08:36] LABS: Glucose, Whole Blood 184 mg/dL (60-115)
[2021-01-31] MEDS: 0.9 % Sodium Chloride Flush 3 ML SYRINGE IVFLUSH ×3 (08:38→21:43)
[2021-01-31] MEDS: Lactated Ringers 1,000 ML 100 ML IVCONT ×2 (09:44→21:43)
[2021-01-31 09:46] LABS: Magnesium 2.1 mg/dL (1.6-2.6)
[2021-01-31 09:53] LABS: Ferritin 389 ng/mL (10-250)
--- NOTE | 2021-01-31 10:46 | PM.CNCAR ---
History of Present Illness History of Present Illness Date of Service: 01/31/21 Chief complaint: Pyelonephritis Narrative: This is a cardiology consultation regarding pauses on telemetry. Patient is actually here for abdominal pain. She is being treated for pyelonephritis. In this context, there pauses on telemetry for which we have been asked to see her. It appears that these pauses happened when she was actively vomiting. There is no history of any cardiac issues according to her including coronary disease or myocardial infarction or cardiomyopathy. Currently, she has no dizziness type symptoms or presyncope or syncope or in fact any other cardiac concerns at all. Review of Systems Review of Systems: Yes all other systems are reviewed and are negative Constitutional: Constitutional: Reports fatigue and Reports malaise Cardiovascular: Cardiovascular: Reports as per HPI, Reports no additional cardiovascular complaints, Denies acrocyanosis, Denies cool extremities, Denies painful fingertips, Denies chest pain, Denies chest pain at rest, Denies diaphoresis, Denies syncope, Denies irregular heart rhythm, Denies claudication, Denies leg edema, Denies lightheadedness, Denies palpitations and Denies dyspnea Respiratory: Respiratory: Denies dyspnea Neurologic: Denies syncope Endocrine: Endocrine: Reports fatigue and Denies palpitations PMFSH Past Medical History Medical History No known health problems Family History Family history: reviewed and not pertinent Social History Social History Household Members: Spouse and Family Housing: House Do you presently have visiting nurse or other home services: No Alcohol intake: current Alcohol intake frequency: holidays/special occasions only Smoking Status: Former smoker Tobacco Type: Cigarette Smoked in Last 30 Days: No Patient Interested in Nicotine Replacement: No Patient Given Instructions on How to Stop Smoking: No Second Hand Smoke Exposure: Yes Use of substances other than those prescribed or required for medical reasons: Yes Substance Use Type: Marijuana Substance Use Frequency: Occasionally Last Used Substance: Weeks (ago) Currently Displaying Signs/Symptoms of Drug Intoxication Withdrawal: No Any prior treatment program specific to substance use: No Have you been hit, kicked, punched, or otherwise hurt by someone within the past year? If so, by whom?: No Do you feel safe in your current relationship?: No Is there a partner from a previous relationship who is making you feel unsafe now?: No Are you made to feel afraid or neglected: No Advance Directives: No Advance Directives Information Provided: No Advance Directives on File: No Do you have thoughts of harming others: None Do you have a plan to hurt others: No Plan Recently lost weight without trying: No Meds Allergies Allergy/AdvReac Type Severity Reaction Status Date / Time egg [EGGS] Allergy Mild DIARRHEA Verified 01/31/21 09:43 eggs Allergy Unknown Stomach Verified 01/31/21 09:43 Upset Active Medications: Current Medications Generic Name Dose Route Start Last Admin Trade Name Freq PRN Reason Stop Dose Admin Acetaminophen 650 mg 01/30/21 20:14 Acetaminophen 325 Mg Tablet PO Q6H PRN Pain, Mild (Pain Scale 1-3) Docusate Sodium 100 mg 01/30/21 20:14 Docusate Sodium 100 Mg Capsule PO DAILY PRN Constipation Heparin Sodium (Porcine) 5,000 unit 01/30/21 22:00 01/30/21 23:36 Heparin Sodium,Porcine 5,000 Unit/Ml Vial SUBCUT 5,000 unit Q12H RONAK Administration Ceftriaxone Sodium 1 gm/ 50 mls @ 100 mls/hr 01/31/21 14:00 Sodium Chloride IV Q24H RONAK Lactated Ringer's 1,000 mls @ 100 mls/hr 01/30/21 21:45 01/31/21 09:44 Lr IVCONT 100 mls/hr .Q10H RONAK Administration Morphine Sulfate 4 mg 01/30/21 20:14 01/31/21 08:32 Morphine Sulfate 4 Mg/Ml Cartridge IVPUSH 4 mg Q4H PRN Administration Pain, Severe (Pain Scale 7-10) Ondansetron HCl 4 mg 01/30/21 21:54 01/31/21 08:30 Ondansetron Hcl 4 Mg/2 Ml Vial IVPUSH 4 mg Q8H PRN Administration Nausea and Vomiting Sodium Chloride 3 ml 01/31/21 00:00 01/31/21 08:38 0.9 % Sodium Chloride Flush 3 Ml Syringe IVFLUSH 3 ml QSHIFT RONAK Administration Physical Exam Vital Signs: Vital Signs: Last Vital Signs Temp 97 F 01/31/21 08:00 Pulse 74 01/31/21 08:00 Resp 18 01/31/21 08:00 BP 163/72 H 01/31/21 08:00 Pulse Ox 97 01/31/21 08:00 Body Mass Index 29.2 Const: General: cooperative, comfortable and no acute distress Orientation/consciousness: patient oriented x3 HENMT: Other: Unremarkable Neck: Neck: Yes normal visual inspection Chest: Chest palpation & inspection: normal inspection of the chest Resp: Auscultation: clear to auscultation bilaterally, no crackles and no wheezes Cardio: Jugular venous distension: no JVD Palpation: normal PMI Heart sounds: S1 normal heart sound present, S2 normal heart sound present, no gallops, no murmurs and no rubs GI: Palpation (GI): Soft to palpation Back/Spine/Pelvis: Other: unremarkable Skin: General skin exam: no rashes or lesions noted Neuro: General: patient oriented x3 Extrem: General: Yes no clubbing, cyanosis or edema Psych: Mental Status: mental status grossly normal Results Labs and Meds Result diagrams: 01/31/21 04:31 01/31/21 04:31 Lab results: Laboratory Results - last 24 hr 01/30/21 01/30/21 01/30/21 14:19 14:19 14:19 WBC RBC Hgb Hct MCV MCH MCHC RDW Plt Count MPV Immature Gran % (Auto) Neut % (Auto) Lymph % (Auto) [place] % (Auto) Eos % (Auto) Baso % (Auto) Lymph # (Auto) [place] # (Auto) Eos # (Auto) Baso # (Auto) Abs Immat Gran (auto) Absolute Neuts (auto) Absolute Nucleated RBC Nucleated RBC % (auto) Sodium 137 Potassium 5.8 H D Chloride 106 Carbon Dioxide 15 L Anion Gap 22 H BUN 48 H Creatinine 2.17 H Estim Creat Clear Calc 25.0 Estimated GFR 23 POC Glucose Random Glucose 276 H Lactic Acid 0.7 Calcium 8.8 D Magnesium Ferritin Total Bilirubin 0.3 AST 18 ALT 15 Alkaline Phosphatase 86 D Total Protein 6.3 L Albumin 3.6 Urine Color Urine Appearance Urine pH Ur Specific [place] Urine Protein Urine Glucose (UA) Urine Ketones Urine Blood Urine Nitrite Ur Leukocyte Esterase Urine RBC Urine WBC Ur Squamous Epith Cells Urine Bacteria Urine Mucus COVID-19 ([facility]MAN) Negative COVID-19 Clin Com See Note Blood Type Antibody Screen 01/30/21 01/30/21 01/30/21 14:20 14:56 19:46 WBC 18.8 H RBC 3.52 L Hgb 11.2 L Hct 34.8 L MCV 98.9 H MCH 31.8 MCHC 32.2 RDW 14.9 Plt Count 186 D MPV 12.7 H Immature Gran % (Auto) 1.7 H Neut % (Auto) 89.8 H Lymph % (Auto) 3.9 L [place] % (Auto) 4.3 Eos % (Auto) 0.1 Baso % (Auto) 0.2 Lymph # (Auto) 0.7 L [place] # (Auto) 0.8 Eos # (Auto) 0.0 Baso # (Auto) 0.0 Abs Immat Gran (auto) 0.32 H Absolute Neuts (auto) 16.9 H Absolute Nucleated RBC 0.000 Nucleated RBC % (auto) 0.0 Sodium 138 Potassium 4.8 Chloride 110 H Carbon Dioxide 14 L Anion Gap 19 BUN 43 H Creatinine 1.94 H Estim Creat Clear Calc 28.0 Estimated GFR 26 POC Glucose Random Glucose 254 H Lactic Acid Calcium 7.9 L D Magnesium Ferritin Total Bilirubin AST ALT Alkaline Phosphatase Total Protein Albumin Urine Color YELLOW Urine Appearance HAZY Urine pH 5.5 Ur Specific [place] >= 1.030 H Urine Protein 2+ H Urine Glucose (UA) 250 H Urine Ketones 15 Urine Blood 2+ H Urine Nitrite NEG Ur Leukocyte Esterase NEG Urine RBC 10-14 H Urine WBC 10-14 H Ur Squamous Epith Cells 2+ Urine Bacteria 1+ Urine Mucus 2+ COVID-19 (OSMAN) COVID-19 Clin Com Blood Type Antibody Screen 01/30/21 01/30/21 01/31/21 19:47 19:47 04:31 WBC 17.1 H 15.8 H RBC 3.44 L 3.31 L Hgb 11.0 L 10.5 L Hct 34.0 L 32.5 L MCV 98.8 H 98.2 H MCH 32.0 31.7 MCHC 32.4 32.3 RDW 15.0 14.7 Plt Count 173 182 MPV 12.5 H 12.8 H Immature Gran % (Auto) 1.6 H 0.9 H Neut % (Auto) 86.4 H 86.2 H Lymph % (Auto) 7.6 L 7.2 L [place] % (Auto) 4.0 5.1 Eos % (Auto) 0.0 0.2 Baso % (Auto) 0.4 0.4 Lymph # (Auto) 1.3 1.1 L [place] # (Auto) 0.7 0.8 Eos # (Auto) 0.0 0.0 Baso # (Auto) 0.1 0.1 Abs Immat Gran (auto) 0.27 H 0.14 H Absolute Neuts (auto) 14.8 H 13.6 H Absolute Nucleated RBC 0.000 0.000 Nucleated RBC % (auto) 0.0 0.0 Sodium Potassium Chloride Carbon Dioxide Anion Gap BUN Creatinine Estim Creat Clear Calc Estimated GFR POC Glucose Random Glucose Lactic Acid Calcium Magnesium Ferritin Total Bilirubin AST ALT Alkaline Phosphatase Total Protein Albumin Urine Color Urine Appearance Urine pH Ur Specific [place] Urine Protein Urine Glucose (UA) Urine Ketones Urine Blood Urine Nitrite Ur Leukocyte Esterase Urine RBC Urine WBC Ur Squamous Epith Cells Urine Bacteria Urine Mucus COVID-19 ([facility]MAN) COVID-19 Clin Com Blood Type O Positive Antibody Screen NEGATIVE 01/31/21 01/31/21 01/31/21 04:31 08:29 08:32 WBC RBC Hgb Hct MCV MCH MCHC RDW Plt Count MPV Immature Gran % (Auto) Neut % (Auto) Lymph % (Auto) [place] % (Auto) Eos % (Auto) Baso % (Auto) Lymph # (Auto) [place] # (Auto) Eos # (Auto) Baso # (Auto) Abs Immat Gran (auto) Absolute Neuts (auto) Absolute Nucleated RBC Nucleated RBC % (auto) Sodium 138 Potassium 4.7 Chloride 109 H Carbon Dioxide 17 L Anion Gap 17 BUN 41 H Creatinine 1.83 H Estim Creat Clear Calc 29.7 Estimated GFR 28 POC Glucose 184 H Random Glucose 221 H Lactic Acid Calcium 8.1 L Magnesium 2.1 Ferritin 389 H Total Bilirubin AST ALT Alkaline Phosphatase Total Protein Albumin Urine Color Urine Appearance Urine pH Ur Specific [place] Urine Protein Urine Glucose (UA) Urine Ketones Urine Blood Urine Nitrite Ur Leukocyte Esterase Urine RBC Urine WBC Ur Squamous Epith Cells Urine Bacteria Urine Mucus COVID-19 ([facility]MAN) COVID-19 Clin Com Blood Type Antibody Screen ECG Attestation: I personally reviewed and interpreted this ECG as follows: Interpretation: EKG today shows sinus rhythm at 81/Min; no significant ST-T changes; normal IN/QTc. There is 1 pause today morning which last for about 6.5seconds. There is sinus activity and hence this is likely an AV block related to vagal stimulation from vomiting. There is yet another pause which is longer closer to 9 seconds from around 23:00 when it appears she might have again been vomiting, but part of the EKG strip seems to be cut off and hence I am not definitive as to how long the actual duration is. Currently, telemetry shows sinus rhythm in 70s to 80s. Assessment and Plan (1) Sinus pause: Status: Acute (2) Heart block atrioventricular: Status: Acute (3) Bacteremia: Status: Acute (4) E-coli UTI: Status: Acute (5) Pyelonephritis of right kidney: Status: Acute Pauses on telemetry most likely from vagal stimulation from omitting. Currently she is in sinus rhythm in 70s. No specific management in this regard. She has no symptoms even during the times of pauses. We will follow telemetry. Treat infection as required.
[2021-01-31] MEDS: Heparin Sodium,Porcine 5,000 UNIT/ML VIAL 5000 UNIT SUBCUT ×2 (11:39→21:43)
[2021-01-31] MEDS: HYDROmorphone HCl 0.5 MG/0.5 ML SYRINGE IVPUSH ×3 (12:01→21:41)
--- NOTE | 2021-01-31 12:59 | PC.NURSE ---
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 in severe pain this morning from R flank, given 4mg IV morphine as ordered with only slight relief, very nauseated as well, given IV Zofran, [facility] notifed that Morphine wasn't working and med switched to IV Dilaudid 0.5mg which worked immediately, pt. now resting comfortably in bed, LR running at 100mL/hr, bed alarm on for safety, pt. is standby assist to bathroom as she is slighly unsteady due to pain meds
--- NOTE | 2021-01-31 13:27 | MHC.CM.PN ---
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 Patient does not have a HCP and declines filling one out today after being educated. Discussed discharge plan, home no services. will provide transport. CM will continue to follow patient for discharge needs.
[2021-01-31] MEDS: cefTRIAXone sodium 1 GM in 0.9 % Sodium Chloride 50 ML IV (15:00)
--- NOTE | 2021-01-31 15:05 | W.PM.IDCN ---
History of Present Illness Data of Consult Service Date: 01/31/21 Requesting physician: [facility] Primary Care Provider: DO SHREYA Ybarra Reason for consult: right flank pain She presents to hospital with right flank pain.8/10 as well as hematuria for 5 days She was seen in ER on 01/28 and was given Cefuroxime as well as Ibuprofen She has stabbing pain She has nausea and subjective chills CT scan shows right pyelonephritis and possible passed stones Review of Systems Review of Systems: Yes all other systems are reviewed and are negative PMFSH Past Medical History Medical History No known health problems Family History Family history: reviewed and not pertinent Social History Social History Household Members: Spouse and Family Housing: House Do you presently have visiting nurse or other home services: No Alcohol intake: current Alcohol intake frequency: holidays/special occasions only Smoking Status: Former smoker Tobacco Type: Cigarette Smoked in Last 30 Days: No Patient Interested in Nicotine Replacement: No Patient Given Instructions on How to Stop Smoking: No Second Hand Smoke Exposure: Yes Use of substances other than those prescribed or required for medical reasons: Yes Substance Use Type: Marijuana Substance Use Frequency: Occasionally Last Used Substance: Weeks (ago) Currently Displaying Signs/Symptoms of Drug Intoxication Withdrawal: No Any prior treatment program specific to substance use: No Have you been hit, kicked, punched, or otherwise hurt by someone within the past year? If so, by whom?: No Do you feel safe in your current relationship?: No Is there a partner from a previous relationship who is making you feel unsafe now?: No Are you made to feel afraid or neglected: No Advance Directives: No Advance Directives Information Provided: No Advance Directives on File: No Do you have thoughts of harming others: None Do you have a plan to hurt others: No Plan Recently lost weight without trying: No service: No Current occupational status: employed Meds Allergies Allergy/AdvReac Type Severity Reaction Status Date / Time egg [EGGS] Allergy Mild DIARRHEA Verified 01/31/21 09:43 eggs Allergy Unknown Stomach Verified 01/31/21 09:43 Upset Active Medications: Current Medications Generic Name Dose Route Start Last Admin Trade Name Freq PRN Reason Stop Dose Admin Acetaminophen 650 mg 01/30/21 20:14 Acetaminophen 325 Mg Tablet PO Q6H PRN Pain, Mild (Pain Scale 1-3) Docusate Sodium 100 mg 01/30/21 20:14 Docusate Sodium 100 Mg Capsule PO DAILY PRN Constipation Heparin Sodium (Porcine) 5,000 unit 01/30/21 22:00 01/31/21 11:39 Heparin Sodium,Porcine 5,000 Unit/Ml Vial SUBCUT 5,000 unit Q12H RONAK Administration Hydromorphone HCl 0.5 mg 01/31/21 11:49 01/31/21 12:01 Hydromorphone Hcl 0.5 Mg/0.5 Ml Syringe IVPUSH 0.5 mg Q4H PRN Administration Pain, Severe (Pain Scale 7-10) Ceftriaxone Sodium 1 gm/ 50 mls @ 100 mls/hr 01/31/21 14:00 Sodium Chloride IV Q24H RONAK Lactated Ringer's 1,000 mls @ 100 mls/hr 01/30/21 21:45 01/31/21 09:44 Lr IVCONT 100 mls/hr .Q10H RONAK Administration Ondansetron HCl 4 mg 01/30/21 21:54 01/31/21 11:37 Ondansetron Hcl 4 Mg/2 Ml Vial IVPUSH 4 mg Q8H PRN Administration Nausea and Vomiting Sodium Chloride 3 ml 01/31/21 00:00 01/31/21 08:38 0.9 % Sodium Chloride Flush 3 Ml Syringe IVFLUSH 3 ml QSHIFT RONAK Administration Physical Exam Vital Signs: Vital Signs: Last Vital Signs Temp 97 F 01/31/21 12:00 Pulse 69 01/31/21 12:00 Resp 18 01/31/21 12:00 BP 181/81 H 01/31/21 12:00 Pulse Ox 90 L 01/31/21 12:00 Body Mass Index 29.2 Const: General: cooperative HENMT: Head: Yes normal to inspection Mouth: Normal oral and palatal mucosa present Eyes: General: appearance normal, both eyes and all related structures Resp: Effort & Inspection: normal respiratory effort Cardio: Rate: regular rate Rhythm: regular rhythm GI: Palpation (GI): Soft to palpation and nontender : General: Yes no CVA tenderness Back/Spine/Pelvis: Back: no CVA tenderness Skin: General skin exam: no rashes or lesions noted Neuro: General: patient oriented x3 Extrem: General: Yes normal to inspection Results Labs CBC & Chem 7: 01/31/21 04:31 01/31/21 04:31 Labs: Short CBC 01/30/21 01/31/21 Range/Units 19:47 04:31 WBC 17.1 H 15.8 H (4.8-10.8) X10*3/uL Hgb 11.0 L 10.5 L (12.0-16.0) g/dl Hct 34.0 L 32.5 L (37-47) % Plt Count 173 182 (160-400) X10*3/uL BMP 01/30/21 01/31/21 19:46 04:31 Sodium 138 138 Potassium 4.8 4.7 Chloride 110 H 109 H Carbon Dioxide 14 L 17 L BUN 43 H 41 H Creatinine 1.94 H 1.83 H Calcium 7.9 L D 8.1 L Urine 01/30/21 Range/Units 14:56 Urine Color YELLOW Urine Appearance HAZY Urine pH 5.5 (5.0-8.0) Ur Specific [place] >= 1.030 H (1.005-1.025) Urine Protein 2+ H (NEG-TRACE) MG/DL Urine Glucose (UA) 250 H (NEG) MG/DL Microbiology Microbiology Results: Microbiology 01/30/21 14:20 Blood - Venous Blood Culture - Preliminary 01/30/21 14:00 Urine clean catch - Clean Catch Midstream Urine Culture - Preliminary No growth to date. Assessment and Plan (1) E-coli UTI: Status: Acute (2) Bacteremia: Problem details: She has sepsis with leukocytosis and some tachycardia She has possible nephrolithiasis as well No antibiotic allergies Status: Acute Would continue Ceftriaxone IV until feeling improved Would give po Ceftin 500 mg bid until improved for 14 days total Would have Urology evaluate nephrolithiasis
--- NOTE | 2021-01-31 15:13 | HO.PM.IMPN ---
Subjective Subjective Date of Service: 01/31/21 Interval History: c/o of more pain, nausea. She had a 10 second pause overnight assocated with vomitting and another episode last 6 second this morning also associated with vomitting. Otherwise in sinus rythm Review of Systems Gen: no fever Resp: no sob, no cough CV: no chest, no FINCH, no leg edema GI: No n/v, no abd pain Neuro: No confusion Physical Exam Vital Signs: Vital Signs: Last Vital Signs Temp 97 F 01/31/21 12:00 Pulse 69 01/31/21 12:00 Resp 18 01/31/21 12:00 BP 181/81 H 01/31/21 12:00 Pulse Ox 90 L 01/31/21 12:00 Body Mass Index 29.2 General: AO X 3, no acute distress Resp: CTA bilateral CVS: S1,S2,RRR GI: mild right flank tenderness Skin: No rash Neuro: motor grossly intact Psych: appropriate affect Objective Data Current Medications Generic Name Dose Route Start Last Admin Trade Name Freq PRN Reason Stop Dose Admin Acetaminophen 650 mg 01/30/21 20:14 Acetaminophen 325 Mg Tablet PO Q6H PRN Pain, Mild (Pain Scale 1-3) Docusate Sodium 100 mg 01/30/21 20:14 Docusate Sodium 100 Mg Capsule PO DAILY PRN Constipation Heparin Sodium (Porcine) 5,000 unit 01/30/21 22:00 01/31/21 11:39 Heparin Sodium,Porcine 5,000 Unit/Ml Vial SUBCUT 5,000 unit Q12H RONAK Administration Hydromorphone HCl 0.5 mg 01/31/21 11:49 01/31/21 12:01 Hydromorphone Hcl 0.5 Mg/0.5 Ml Syringe IVPUSH 0.5 mg Q4H PRN Administration Pain, Severe (Pain Scale 7-10) Ceftriaxone Sodium 1 gm/ 50 mls @ 100 mls/hr 01/31/21 14:00 01/31/21 15:00 Sodium Chloride IV 100 mls/hr Q24H RONAK Administration Lactated Ringer's 1,000 mls @ 100 mls/hr 01/30/21 21:45 01/31/21 09:44 Lr IVCONT 100 mls/hr .Q10H RONAK Administration Ondansetron HCl 4 mg 01/30/21 21:54 01/31/21 11:37 Ondansetron Hcl 4 Mg/2 Ml Vial IVPUSH 4 mg Q8H PRN Administration Nausea and Vomiting Sodium Chloride 3 ml 01/31/21 00:00 01/31/21 08:38 0.9 % Sodium Chloride Flush 3 Ml Syringe IVFLUSH 3 ml QSHIFT RONAK Administration Labs CBC & Chem 7: 01/31/21 04:31 01/31/21 04:31 Microbiology Microbiology Results: Microbiology 01/30/21 14:20 Blood - Venous Blood Culture - Preliminary 01/30/21 14:00 Urine clean catch - Clean Catch Midstream Urine Culture - Preliminary No growth to date. Assessment and Plan (1) Pyelonephritis of right kidney: Status: Acute (2) Bacteremia: Problem details: She has sepsis with leukocytosis and some tachycardia She has possible nephrolithiasis as well No antibiotic allergies Status: Acute (3) E-coli UTI: Status: Acute (4) Dehydration: Status: Acute (5) Acute hyperkalemia: Status: Acute (6) Anemia: Status: Acute (7) SUPRIYA (acute kidney injury): Status: Acute Assessment and Plan: 65-year-old female with no significant past medical history presents to the hospital initially on January 28 with complaints of right flank pain, at that time she was diagnosed with UTI and pyelonephritis and sent home on p.o. antibiotics, returns today stating that the pain is persistent with nausea vomiting, and low oral intake Sepsis due to pyelonephritis and probably related to stone. Blood culture is growing E coli as well as urine culture Continue ceftriaxone Id consult Urology consult as well Continue IV fluid and pain medication with Dilaudid. # bacteremia due to E coli and pyelonephritis. Ceftriaxone as stated above # SUPRIYA--likely from obstructive uropathy, it is improving. Urology consult as stated IV fluid and continue to follow creatinine level # acute hyperkalemia--Resolved. DVT prophylaxis: Heparin subQ
[2021-02-01] VITALS (11 sets, daily range): BP systolic 162–180; BP diastolic 71–92; PULSE 77–87; RESP 14–18; TEMP 36.1–36.9; O2SAT 90–93
[2021-02-01] MEDS: HYDROmorphone HCl 0.5 MG/0.5 ML SYRINGE IVPUSH ×5 (03:45→21:12)
[2021-02-01] MEDS: ondansetron HCL 4 MG/2 ML VIAL IVPUSH ×2 (05:46→21:12)
[2021-02-01] MEDS: 0.9 % Sodium Chloride Flush 3 ML SYRINGE IVFLUSH ×3 (08:29→21:12)
[2021-02-01] MEDS: Lactated Ringers 1,000 ML 100 ML IVCONT ×2 (08:36→21:12)
[2021-02-01] MEDS: Heparin Sodium,Porcine 5,000 UNIT/ML VIAL 5000 UNIT SUBCUT ×2 (08:40→21:11)
--- NOTE | 2021-02-01 11:06 | PM.PNCARD ---
Subjective Subjective Date of Service: 02/01/21 Interval history: She has various constitutional symptoms but does not have anything specifically from cardiac like dizziness or syncope or shortness of breath/chest pain. Review of Systems Review of Systems Yes all other systems are reviewed and are negative Constitutional: Reports fatigue and Reports malaise Cardiovascular: Reports as per HPI, Reports no additional cardiovascular complaints, Denies acrocyanosis, Denies cool extremities, Denies painful fingertips, Denies chest pain, Denies chest pain at rest, Denies diaphoresis, Denies syncope, Denies irregular heart rhythm, Denies claudication, Denies leg edema, Denies lightheadedness, Denies palpitations and Denies dyspnea Respiratory: Denies dyspnea Denies syncope Endocrine: Reports fatigue and Denies palpitations Physical Exam Vital Signs: Last Vital Signs Temp 97.2 F 02/01/21 07:41 Pulse 83 02/01/21 07:41 Resp 16 02/01/21 08:28 BP 165/92 H 02/01/21 07:41 Pulse Ox 92 02/01/21 07:41 Body Mass Index 29.2 Const General: cooperative, comfortable and no acute distress Orientation/consciousness: patient oriented x3 HENMT Other: Unremarkable Neck Neck: Yes normal visual inspection Chest Chest palpation & inspection: normal inspection of the chest Resp Auscultation: clear to auscultation bilaterally, no crackles and no wheezes Cardio Jugular venous distension: no JVD Palpation: normal PMI Heart sounds: S1 normal heart sound present, S2 normal heart sound present, no gallops, no murmurs and no rubs GI Palpation (GI): Soft to palpation Back/Spine/Pelvis Other: unremarkable Skin General skin exam: no rashes or lesions noted Neuro General: patient oriented x3 Extrem General: Yes no clubbing, cyanosis or edema Psych Mental Status: mental status grossly normal Results Labs and Meds Result diagrams: 01/31/21 04:31 01/31/21 04:31 ECG Attestation: I personally reviewed and interpreted this ECG as follows: Interpretation: Telemetry with about 3.3 second pauses last night as well as today morning; there are P waves noted and hence this is heart block; Progress Note: A&P Assessment and plan (1) Sinus pause: Status: Acute (2) Heart block atrioventricular: Status: Acute (3) Bacteremia: Status: Acute (4) E-coli UTI: Status: Acute (5) Pyelonephritis of right kidney: Status: Acute Assessment and Plan: Pauses on telemetry most likely from vagal stimulation from vomiting. Currently, she is in sinus rhythm in 70s. No specific management in this regard. She has no symptoms even during the times of pauses. We will follow telemetry. Treat infection as required. Fall Risk Details Current Medications: Current Medications Generic Name Dose Route Start Last Admin Trade Name Freq PRN Reason Stop Dose Admin Acetaminophen 650 mg 01/30/21 20:14 Acetaminophen 325 Mg Tablet PO Q6H PRN Pain, Mild (Pain Scale 1-3) Docusate Sodium 100 mg 01/30/21 20:14 Docusate Sodium 100 Mg Capsule PO DAILY PRN Constipation Heparin Sodium (Porcine) 5,000 unit 01/30/21 22:00 02/01/21 08:40 Heparin Sodium,Porcine 5,000 Unit/Ml Vial SUBCUT 5,000 unit Q12H RONAK Administration Hydromorphone HCl 0.5 mg 01/31/21 11:49 02/01/21 08:28 Hydromorphone Hcl 0.5 Mg/0.5 Ml Syringe IVPUSH 0.5 mg Q4H PRN Administration Pain, Severe (Pain Scale 7-10) Ceftriaxone Sodium 1 gm/ 50 mls @ 100 mls/hr 01/31/21 14:00 01/31/21 16:31 Sodium Chloride IV Infused Q24H RONAK Infusion Lactated Ringer's 1,000 mls @ 100 mls/hr 01/30/21 21:45 02/01/21 08:36 Lr IVCONT 100 mls/hr .Q10H RONAK Administration Ondansetron HCl 4 mg 01/30/21 21:54 02/01/21 05:46 Ondansetron Hcl 4 Mg/2 Ml Vial IVPUSH 4 mg Q8H PRN Administration Nausea and Vomiting Sodium Chloride 3 ml 01/31/21 00:00 02/01/21 08:29 0.9 % Sodium Chloride Flush 3 Ml Syringe IVFLUSH 3 ml QSHIFT RONAK Administration Time Spent With Patient Time: Total time spent is greater than 50% in coordination of care (as documented) at patient's floor/unit and/or counseling patient: Time with patient: less than 15 minutes
[2021-02-01] MEDS: Acetaminophen 325 MG TABLET 650 MG PO (11:08)
[2021-02-01] MEDS: cefTRIAXone sodium 1 GM in 0.9 % Sodium Chloride 50 ML IV (13:26)
--- NOTE | 2021-02-01 15:01 | P.PNIM_ITS ---
Subjective Subjective Date of Service: 02/01/21 Interval History: c/o of more pain, nausea. Yesterday she had a 10 second pause overnight assocated with vomitting and another episode last 6 second later, this morning he had another episode of 3 second pause and she is complaining of severe flank pain. Review of Systems Gen: no fever Resp: no sob, no cough CV: no chest, no FINCH, no leg edema GI: No n/v, no abd pain Neuro: No confusion Physical Exam Vital Signs: Vital Signs: Last Vital Signs Temp 97.8 F 02/01/21 12:33 Pulse 87 02/01/21 12:33 Resp 14 02/01/21 13:33 BP 180/90 H 02/01/21 11:11 Pulse Ox 90 L 02/01/21 11:11 Body Mass Index 29.2 General: AO X 3, no acute distress Resp: CTA bilateral CVS: S1,S2,RRR GI/: Skin: No rash Neuro: motor grossly intact Psych: appropriate affect Objective Data Current Medications Generic Name Dose Route Start Last Admin Trade Name Michaelq PRN Reason Stop Dose Admin Acetaminophen 650 mg 01/30/21 20:14 02/01/21 11:08 Acetaminophen 325 Mg Tablet PO 650 mg Q6H PRN Administration Pain, Mild (Pain Scale 1-3) Docusate Sodium 100 mg 01/30/21 20:14 Docusate Sodium 100 Mg Capsule PO DAILY PRN Constipation Heparin Sodium (Porcine) 5,000 unit 01/30/21 22:00 02/01/21 08:40 Heparin Sodium,Porcine 5,000 Unit/Ml Vial SUBCUT 5,000 unit Q12H RONAK Administration Hydromorphone HCl 0.5 mg 01/31/21 11:49 02/01/21 12:35 Hydromorphone Hcl 0.5 Mg/0.5 Ml Syringe IVPUSH 0.5 mg Q4H PRN Administration Pain, Severe (Pain Scale 7-10) Ceftriaxone Sodium 1 gm/ 50 mls @ 100 mls/hr 01/31/21 14:00 02/01/21 13:26 Sodium Chloride IV 100 mls/hr Q24H RONAK Administration Lactated Ringer's 1,000 mls @ 100 mls/hr 01/30/21 21:45 02/01/21 08:36 Lr IVCONT 100 mls/hr .Q10H RONAK Administration Ondansetron HCl 4 mg 01/30/21 21:54 02/01/21 05:46 Ondansetron Hcl 4 Mg/2 Ml Vial IVPUSH 4 mg Q8H PRN Administration Nausea and Vomiting Sodium Chloride 3 ml 01/31/21 00:00 02/01/21 08:29 0.9 % Sodium Chloride Flush 3 Ml Syringe IVFLUSH 3 ml QSHIFT RONAK Administration Labs CBC & Chem 7: 01/31/21 04:31 01/31/21 04:31 Microbiology Microbiology Results: Microbiology 01/30/21 14:00 Urine clean catch - Clean Catch Midstream Urine Culture - Final 01/30/21 14:20 Blood - Venous Blood Culture - Preliminary Coag negative Staphylococcus 01/30/21 14:20 Blood - Venous Blood Culture - Preliminary No growth after 24 hours. Assessment and Plan (1) Pyelonephritis of right kidney: Status: Acute (2) Bacteremia: Status: Acute (3) E-coli UTI: Status: Acute (4) Dehydration: Status: Acute (5) Acute hyperkalemia: Status: Acute (6) Anemia: Status: Acute (7) SUPRIYA (acute kidney injury): Status: Acute Assessment and Plan: 65-year-old female with no significant past medical history presents to the hospital initially on January 28 with complaints of right flank pain, at that time she was diagnosed with UTI and pyelonephritis and sent home on p.o. antibiotics, returns today stating that the pain is persistent with nausea vomi ting, and low oral intake Sepsis due to pyelonephritis and probably related to stone. Blood culture is growing E coli as well as urine culture Continue ceftriaxone Id rcommend Ceftriaxone and Ceftin at [place] Urology consult as well Continue IV fluid and pain medication with Dilaudid. # bacteremia due to E coli and pyelonephritis. Ceftriaxone and Ceftin at [place] for total of 14 days # SUPIRYA--likely from obstructive uropathy, it is improving. Urology consult as stated IV fluid and continue to follow creatinine level # acute hyperkalemia--Resolved. DVT prophylaxis: Heparin subQ
[2021-02-01 16:13] LABS: Anion Gap 17 (12-20); Blood Urea Nitrogen 33 mg/dL (9-16); Calcium 8.2 mg/dL (8.4-10.2); Carbon Dioxide 18 mmol/L (22-29); Chloride 110 mmol/L (96-108); Creatinine Clr Calc Pharmacy 38.8; Estimated Glomerular Filt Rate 38; Glucose Random 306 mg/dL (60-115); Potassium 4.5 mmol/L (3.3-5.1); Sodium 140 mmol/L (135-145)
[2021-02-02] VITALS (9 sets, daily range): BP systolic 168–186; BP diastolic 66–99; PULSE 78–94; RESP 12–20; TEMP 36.7–37.2; O2SAT 88–95
[2021-02-02] MEDS: HYDROmorphone HCl 0.5 MG/0.5 ML SYRINGE IVPUSH ×5 (01:07→22:04)
[2021-02-02] MEDS: Lactated Ringers 1,000 ML 100 ML IVCONT (05:57)
[2021-02-02] MEDS: ondansetron HCL 4 MG/2 ML VIAL IVPUSH ×2 (06:03→17:24)
--- NOTE | 2021-02-02 10:39 | HO.PM.IMPN ---
Subjective Subjective Date of Service: 02/02/21 Interval History: c/o of more pain, nausea. No reported sinause pauses, she is still complaining about pain. Renal function is getting better. Review of Systems Gen: no fever Resp: no sob, no cough CV: no chest, no FINCH, no leg edema GI: No n/v, no abd pain Neuro: No confusion Physical Exam Vital Signs: Vital Signs: Last Vital Signs Temp 98.2 F 02/02/21 07:41 Pulse 86 02/02/21 07:41 Resp 20 02/02/21 07:41 BP 174/66 H 02/02/21 07:41 Pulse Ox 94 02/02/21 07:41 Body Mass Index 29.2 General: AO X 3, no acute distress Resp: CTA bilateral CVS: S1,S2,RRR GI/U: right flank pain Skin: No rash Neuro: motor grossly intact Psych: appropriate affect Objective Data Current Medications Generic Name Dose Route Start Last Admin Trade Name Freq PRN Reason Stop Dose Admin Acetaminophen 650 mg 01/30/21 20:14 02/01/21 11:08 Acetaminophen 325 Mg Tablet PO 650 mg Q6H PRN Administration Pain, Mild (Pain Scale 1-3) Docusate Sodium 100 mg 01/30/21 20:14 Docusate Sodium 100 Mg Capsule PO DAILY PRN Constipation Heparin Sodium (Porcine) 5,000 unit 01/30/21 22:00 02/01/21 21:11 Heparin Sodium,Porcine 5,000 Unit/Ml Vial SUBCUT 5,000 unit Q12H RONAK Administration Hydromorphone HCl 0.5 mg 01/31/21 11:49 02/02/21 06:03 Hydromorphone Hcl 0.5 Mg/0.5 Ml Syringe IVPUSH 0.5 mg Q4H PRN Administration Pain, Severe (Pain Scale 7-10) Ceftriaxone Sodium 1 gm/ 50 mls @ 100 mls/hr 01/31/21 14:00 02/01/21 15:36 Sodium Chloride IV Infused Q24H RONAK Infusion Lactated Ringer's 1,000 mls @ 100 mls/hr 01/30/21 21:45 02/02/21 05:57 Lr IVCONT 100 mls/hr .Q10H RONAK Administration Ondansetron HCl 4 mg 01/30/21 21:54 02/02/21 06:03 Ondansetron Hcl 4 Mg/2 Ml Vial IVPUSH 4 mg Q8H PRN Administration Nausea and Vomiting Sodium Chloride 3 ml 01/31/21 00:00 02/02/21 08:07 0.9 % Sodium Chloride Flush 3 Ml Syringe IVFLUSH Not Given QSHIFT RONAK Labs CBC & Chem 7: 01/31/21 04:31 02/01/21 15:40 Microbiology Microbiology Results: Microbiology 01/30/21 14:20 Blood - Venous Blood Culture - Preliminary No growth after 48 hours. 01/30/21 14:00 Urine clean catch - Clean Catch Midstream Urine Culture - Final 01/30/21 14:20 Blood - Venous Blood Culture - Preliminary Coag negative Staphylococcus Assessment and Plan (1) Pyelonephritis of right kidney: Status: Acute (2) Bacteremia: Status: Acute (3) E-coli UTI: Status: Acute (4) Dehydration: Status: Acute (5) Acute hyperkalemia: Status: Acute (6) Anemia: Status: Acute (7) SUPRIYA (acute kidney injury): Status: Acute Assessment and Plan: 65-year-old female with no significant past medical history presents to the hospital initially on January 28 with complaints of right flank pain, at that time she was diagnosed with UTI and pyelonephritis and sent home on p.o. antibiotics, returns today stating that the pain is persistent with nausea vomiting, and low oral intake Sepsis due to pyelonephritis and probably related to stone that has likely passed Blood culture is growing E coli as well as urine culture--moffett sensitive Continue ceftriaxone Id rcommend Ceftriaxone and Ceftin at [place] Urology consult as well Continue IV fluid and pain medication with Dilaudid. 1/2 positive gram positive cocci is likely contamination # bacteremia due to E coli and pyelonephritis. Ceftriaxone and Ceftin at [place] for total of 14 days # SUPRIYA--likely from obstructive uropathy, it is improving Cr is 1.4 today. Urology will see her today. Will remind DR. Ruiz, will wait to see if we need to repeat imaging # acute hyperkalemia--Resolved. DVT prophylaxis: Heparin subQ
--- NOTE | 2021-02-02 10:51 | PM.PNCARD ---
Subjective Subjective Date of Service: 02/02/21 Interval history: Still in a lot of pain. Nausea+. No cardiac symptoms. Review of Systems Review of Systems Yes all other systems are reviewed and are negative Constitutional: Reports fatigue and Reports malaise Cardiovascular: Reports as per HPI, Reports no additional cardiovascular complaints, Denies acrocyanosis, Denies cool extremities, Denies painful fingertips, Denies chest pain, Denies chest pain at rest, Denies diaphoresis, Denies syncope, Denies irregular heart rhythm, Denies claudication, Denies leg edema, Denies lightheadedness, Denies palpitations and Denies dyspnea Respiratory: Denies dyspnea Denies syncope Endocrine: Reports fatigue and Denies palpitations Physical Exam Vital Signs: Last Vital Signs Temp 98.2 F 02/02/21 07:41 Pulse 86 02/02/21 07:41 Resp 20 02/02/21 07:41 BP 174/66 H 02/02/21 07:41 Pulse Ox 94 02/02/21 07:41 Body Mass Index 29.2 Const General: cooperative, comfortable and no acute distress Orientation/consciousness: patient oriented x3 HENMT Other: Unremarkable Neck Neck: Yes normal visual inspection Chest Chest palpation & inspection: normal inspection of the chest Resp Auscultation: clear to auscultation bilaterally, no crackles and no wheezes Cardio Jugular venous distension: no JVD Palpation: normal PMI Heart sounds: S1 normal heart sound present, S2 normal heart sound present, no gallops, no murmurs and no rubs GI Palpation (GI): Soft to palpation Back/Spine/Pelvis Other: unremarkable Skin General skin exam: no rashes or lesions noted Neuro General: patient oriented x3 Extrem General: Yes no clubbing, cyanosis or edema Psych Mental Status: mental status grossly normal Results Labs and Meds Result diagrams: 01/31/21 04:31 02/01/21 15:40 Lab results: Laboratory Results - last 24 hr 02/01/21 15:40 Sodium 140 Potassium 4.5 Chloride 110 H Carbon Dioxide 18 L Anion Gap 17 BUN 33 H Creatinine 1.40 Estim Creat Clear Calc 38.8 Estimated GFR 38 Random Glucose 306 H D Calcium 8.2 L Progress Note: A&P Assessment and plan (1) Sinus pause: Status: Acute (2) Heart block atrioventricular: Status: Acute (3) Bacteremia: Status: Acute (4) E-coli UTI: Status: Acute (5) Pyelonephritis of right kidney: Status: Acute Assessment and Plan: Pauses on telemetry most likely from vagal stimulation from vomiting. Overnight there was very brief bradycardia on 1 occasion but otherwise okay. Currently she is in the sinus rhythm in the 90s. Her blood pressure is also high but that is most likely from the pain. Not a known hypertensive. Continue to treat the Primary infection. Discussed with Dr. Sanders. Fall Risk Details Current Medications: Current Medications Generic Name Dose Route Start Last Admin Trade Name Freq PRN Reason Stop Dose Admin Acetaminophen 650 mg 01/30/21 20:14 02/01/21 11:08 Acetaminophen 325 Mg Tablet PO 650 mg Q6H PRN Administration Pain, Mild (Pain Scale 1-3) Docusate Sodium 100 mg 01/30/21 20:14 Docusate Sodium 100 Mg Capsule PO DAILY PRN Constipation Heparin Sodium (Porcine) 5,000 unit 01/30/21 22:00 02/01/21 21:11 Heparin Sodium,Porcine 5,000 Unit/Ml Vial SUBCUT 5,000 unit Q12H RONAK Administration Hydromorphone HCl 0.5 mg 01/31/21 11:49 02/02/21 06:03 Hydromorphone Hcl 0.5 Mg/0.5 Ml Syringe IVPUSH 0.5 mg Q4H PRN Administration Pain, Severe (Pain Scale 7-10) Ceftriaxone Sodium 1 gm/ 50 mls @ 100 mls/hr 01/31/21 14:00 02/01/21 15:36 Sodium Chloride IV Infused Q24H RONAK Infusion Lactated Ringer's 1,000 mls @ 100 mls/hr 01/30/21 21:45 02/02/21 05:57 Lr IVCONT 100 mls/hr .Q10H RONAK Administration Ondansetron HCl 4 mg 01/30/21 21:54 02/02/21 06:03 Ondansetron Hcl 4 Mg/2 Ml Vial IVPUSH 4 mg Q8H PRN Administration Nausea and Vomiting Sodium Chloride 3 ml 01/31/21 00:00 02/02/21 08:07 0.9 % Sodium Chloride Flush 3 Ml Syringe IVFLUSH Not Given QSHIFT RONAK Time Spent With Patient Time: Total time spent is greater than 50% in coordination of care (as documented) at patient's floor/unit and/or counseling patient: Time with patient: less than 15 minutes
[2021-02-02] MEDS: Heparin Sodium,Porcine 5,000 UNIT/ML VIAL 5000 UNIT SUBCUT ×2 (10:55→22:04)
[2021-02-02] MEDS: cefTRIAXone sodium 1 GM in 0.9 % Sodium Chloride 50 ML IV (15:17)
--- NOTE | 2021-02-02 15:57 | PM.IDPN ---
Subjective Subjective Date of Service: 02/02/21 Interval History: she has some nausea and is sleepy Objective Data Labs CBC & Chem 7: 02/03/21 13:37 02/03/21 13:37 Labs: Laboratory Results - last 24 hr 02/01/21 15:40 Sodium 140 Potassium 4.5 Chloride 110 H Carbon Dioxide 18 L Anion Gap 17 BUN 33 H Creatinine 1.40 Estim Creat Clear Calc 38.8 Estimated GFR 38 Random Glucose 306 H D Calcium 8.2 L Microbiology Microbiology Results: Microbiology 01/30/21 14:20 Blood - Venous Blood Culture - Preliminary No growth after 48 hours. 01/30/21 14:00 Urine clean catch - Clean Catch Midstream Urine Culture - Final 01/30/21 14:20 Blood - Venous Blood Culture - Preliminary Coag negative Staphylococcus Physical Exam Vital Signs: Vital Signs: Last Vital Signs Temp 98.2 F 02/02/21 07:41 Pulse 78 02/02/21 12:00 Resp 18 02/02/21 12:00 BP 168/89 H 02/02/21 12:00 Pulse Ox 95 02/02/21 12:00 Body Mass Index 29.2 Const: General: cooperative Resp: Effort & Inspection: normal respiratory effort Cardio: Rate: regular rate Rhythm: regular rhythm GI: Palpation (GI): Soft to palpation and nontender Extrem: General: Yes normal to inspection Assessment and Plan Assessment and plan (1) Bacteremia: Problem details: She has nausea and vomiting concern Status: Acute Assessment and Plan: Would continue Ceftriaxone Would change to po Ceftin 14 d total when taking po well and follow up Dr Ruiz (2) E-coli UTI: Status: Acute Time Spent With Patient Time: Total time spent is greater than 50% in coordination of care (as documented) at patient's floor/unit and/or counseling patient: Time with patient: 15 - 24 minutes
[2021-02-02] MEDS: 0.9 % Sodium Chloride Flush 3 ML SYRINGE IVFLUSH ×2 (17:23→22:04)
--- NOTE | 2021-02-02 17:57 | PC.NURSE ---
Blood pressure 186/88. Patient resting in bed with no complaints other than pain. Looks comfortable. No cardiac signs and symptoms. Dr. Sanders made aware. No new orders at this time. Will report off to the next nurse.
[2021-02-03] VITALS (8 sets, daily range): BP systolic 132–190; BP diastolic 70–82; PULSE 72–90; RESP 12–18; TEMP 36.4–37; O2SAT 90–98
[2021-02-03] MEDS: hydrALAZINE HCl 20 MG/ML VIAL 5 MG IVPUSH ×2 (00:40→04:44)
[2021-02-03] MEDS: ondansetron HCL 4 MG/2 ML VIAL IVPUSH (02:16)
[2021-02-03] MEDS: HYDROmorphone HCl 0.5 MG/0.5 ML SYRINGE IVPUSH (04:44)
[2021-02-03 08:29] LABS: Osmolality, Serum 308 mosm/kg (281-305)
[2021-02-03] MEDS: amLODIPine Besylate 5 MG TABLET PO (08:30)
[2021-02-03] MEDS: Heparin Sodium,Porcine 5,000 UNIT/ML VIAL 5000 UNIT SUBCUT (08:30)
[2021-02-03] MEDS: 0.9 % Sodium Chloride Flush 3 ML SYRINGE IVFLUSH (08:30)
--- NOTE | 2021-02-03 11:35 | P.PNIM_ITS ---
Subjective Subjective Date of Service: 02/03/21 Interval History: Seen in f/u for acute pyelonephritis with pain and nausea, feels better but still has pain Physical Exam Vital Signs: Vital Signs: Last Vital Signs Temp 98.0 F 02/03/21 07:38 Pulse 83 02/03/21 08:30 Resp 18 02/03/21 07:38 BP 170/82 H 02/03/21 08:30 Pulse Ox 90 L 02/03/21 07:38 Body Mass Index 29.2 General: AO X 3, no acute distress Resp: CTA filipe CVS: S1,S2,RRR GI/: +BS, NT, minimal r flank tenderness Skin: No rash Neuro: motor grossly intact Psych: appropriate affect Objective Data Current Medications Generic Name Dose Route Start Last Admin Trade Name Freq PRN Reason Stop Dose Admin Acetaminophen 650 mg 01/30/21 20:14 02/01/21 11:08 Acetaminophen 325 Mg Tablet PO 650 mg Q6H PRN Administration Pain, Mild (Pain Scale 1-3) Amlodipine Besylate 5 mg 02/03/21 06:40 02/03/21 08:34 Amlodipine Besylate 5 Mg Tablet PO Not Given DAILY [facility] Protocol Docusate Sodium 100 mg 01/30/21 20:14 Docusate Sodium 100 Mg Capsule PO DAILY PRN Constipation Heparin Sodium (Porcine) 5,000 unit 01/30/21 22:00 02/03/21 08:30 Heparin Sodium,Porcine 5,000 Unit/Ml Vial SUBCUT 5,000 unit Q12H RONAK Administration Ceftriaxone Sodium 1 gm/ 50 mls @ 100 mls/hr 01/31/21 14:00 02/02/21 16:21 Sodium Chloride IV Infused Q24H RONAK Infusion Ondansetron HCl 4 mg 01/30/21 21:54 02/03/21 02:16 Ondansetron Hcl 4 Mg/2 Ml Vial IVPUSH 4 mg Q8H PRN Administration Nausea and Vomiting Oxycodone HCl 5 mg 02/02/21 10:57 Oxycodone Hcl Immed Release 5 Mg Tablet PO Q4H PRN Pain, Severe (Pain Scale 7-10) Sodium Chloride 3 ml 01/31/21 00:00 02/03/21 08:30 0.9 % Sodium Chloride Flush 3 Ml Syringe IVFLUSH 3 ml QSHIFT RONAK Administration Labs CBC & Chem 7: 01/31/21 04:31 02/01/21 15:40 Microbiology Microbiology Results: Microbiology 01/30/21 14:20 Blood - Venous Blood Culture - Preliminary No growth after 48 hours. 01/30/21 14:00 Urine clean catch - Clean Catch Midstream Urine Culture - Final 01/30/21 14:20 Blood - Venous Blood Culture - Preliminary Coag negative Staphylococcus Assessment and Plan (1) Pyelonephritis of right kidney: Status: Acute (2) Bacteremia: Problem details: She has nausea and vomiting concern Status: Acute (3) E-coli UTI: Status: Acute (4) Dehydration: Status: Acute (5) Acute hyperkalemia: Status: Acute (6) Anemia: Status: Acute (7) SUPRIYA (acute kidney injury): Status: Acute Assessment and Plan: 65-year-old female with no significant past medical history presents to the hospital initially on January 28 with complaints of right flank pain, at that time she was diagnosed with UTI and pyelonephritis and sent home on p.o. antibiotics, returns today stating that the pain is persistent with nausea vomiting, and low oral intake Sepsis due to pyelonephritis and probably related to stone that has likely passed Blood culture is growing E coli as well as urine culture--moffett sensitive Continue ceftriaxone Id rcommend Ceftriaxone and Ceftin at ca Urology consult as well Continue IV fluid and pain medication with Dilaudid. 1/2 positive gram positive cocci is likely contamination # bacteremia due to E coli and pyelonephritis. Ceftriaxone and Ceftin at DC for total of 14 days # SUPRIYA--likely from obstructive uropathy, it is improving Cr is 1.4 today. Urology will see her today. Will remind DR. Ruiz, will wait to see if we need to repeat imaging # acute hyperkalemia--Resolved. #HTN--BP is within normal, started on norvasc today Possibly home later today if tolerated fluid DVT prophylaxis: Heparin subQ
[2021-02-03] MEDS: oxyCODONE HCl Immed Release 5 MG TABLET PO (12:41)
[2021-02-03 13:57] LABS: Hematocrit 34.2 % (37-47); Hemoglobin 11.3 g/dl (12.0-16.0); Mean Corpuscular Hemoglobin 31.5 pg (27.0-33.0); Mean Corpuscular Volume 95.3 fL (80-98); Mean Platelet Volume 12.2 fL (9.4-12.3); Platelet Count 194 X10*3/uL (160-400); Red Blood Count 3.59 X10*6/uL (4.20-5.50); Red Cell Distribution Width 14.2 % (11.0-16.0); White Blood Count 11.4 X10*3/uL (4.8-10.8)
[2021-02-03 14:54] LABS: Anion Gap 13 (12-20); Blood Urea Nitrogen 28 mg/dL (9-16); Calcium 8.1 mg/dL (8.4-10.2); Carbon Dioxide 22 mmol/L (22-29); Chloride 102 mmol/L (96-108); Creatinine Clr Calc Pharmacy 35.7; Estimated Glomerular Filt Rate 34; Glucose Random 401 mg/dL (60-115); Potassium 3.8 mmol/L (3.3-5.1); Sodium 133 mmol/L (135-145)
[2021-02-03 15:56] LABS: Estimated Average Glucose 255 mg/dL; Hemoglobin A1c % 10.5 %
--- NOTE | 2021-02-03 21:04 | DS_ITS ---
CHIEF COMPLAINT: She presents to the emergency room with right flank pain. FINAL DIAGNOSES: 1. Sepsis. 2. Acute pyelonephritis. 3. Escherichia coli bacteremia. 4. Acute renal failure. 5. Diabetes, that is uncontrolled. 6. Hypertension, that is uncontrolled. 7. Sinus pauses of up to 10 seconds. CONSULTATIONS: 1. Dr. Hernandez, Infectious Disease. 2. Dr. Hudson, Cardiology. 3. Dr. Kimani Ruiz, Urology. IMAGING: CAT scan of the abdomen and pelvis done on January 28 showed right-sided perinephric stranding with mild hydroureteronephrosis and mild right-sided perinephric stranding. No definite urethral calculus is identified along the course of the right ureter. Finding may represent a recently passed calculi, though no intraluminal urinary bladder calculus is identified. Correlation for possible passage of stone. HISTORY OF PRESENT ILLNESS: As dictated in history of present illness on January [address] Martinez. Essentially, the patient is a 65-year-old female with hypertension that is not treated. Diabetes. She is not on medication. She said that she follows keto diet for control. Her hemoglobin A1c is around 10. She presented to the emergency room initially on January 28 with abdominal pain and found to have urinary tract infection. She was discharged with p.o. Ceftin. Unclear whether she took it or not. She returned on with right-sided flank pain for 10/10, radiating to the groin, associated with persistent nausea and vomiting, decreased oral intake, weak associated with her urinary frequency and dysuria. At that time, she was noted to have serum potassium of 5.8, although did improve to 4.8. Creatinine was 2.17 with baseline around 1.17 as of January 28. Urinalysis was positive for UTI. A CAT scan of the abdomen and pelvis from the prior day show pyelonephritis on the right side. COVID test was negative. Blood cultures were drawn. The patient was initiated on ceftriaxone intravenously and admitted. HOSPITAL COURSE: During hospitalization, the patient was treated for sepsis related to pyelonephritis. Ultimately, urine culture and blood culture showed Escherichia coli that was pansensitive including ceftriaxone, Levaquin among others. The patient was continued on IV ceftriaxone 1 g daily for the remainder of hospitalization. She had significant nausea and vomiting during hospitalization. Gradually with course of antibiotics, her symptoms improved. Her WBC initially very high at 18,000 has now decreased to 11,000, and has not had any further fevers. She was seen in consultation by Dr. Kelly Hernandez, who recommended once able to take oral medicine to be transition to Ceftin for a total of 14 days. Of note that the patient did develop acute renal failure and that did improve to 1.2, and then increased to 1.5 today. She probably does have underlying chronic kidney disease and does not help that she take ibuprofen on outpatient basis. She has been advised not to take this any longer. The patient also had been noted to have elevated blood sugar during hospitalization with glucose ranging anywhere from 200 to 400. She admits that she is a diabetic, but does not take any medication, does not check her sugars at home, and rather rely on ketogenic diet for control. We talked about initiating medication with insulin as a starter and get teaching while in the hospital and also to continue monitoring for her blood pressures, which have been fairly high ranging from 170 to 190s consistently and that also correspond with untreated hypertension. She was initiated on Norvasc in the hospital and her blood pressure has improved well. While we think the patient needs to be further monitored in the hospital for ongoing issues including elevated blood sugars, kidney function (which is rising), the patient has been adamant that she does not want to stay in the hospital one more night and signed out against medical advice. I was up at the bedside and talked to the patient with nurse. The risk of leaving AMA including the fact that her condition can go worse include worsening of blood sugars can put her in a coma and possibly . I am not able to discharge with her any medication as her medication has not been titrated at this point. In fact, she is adamant that she does not want to go home with anything and she will call her primary care doctor on Friday to arrange for followup appointment. I am providing her with a glucometer so that she could check her sugars and told her if sugars are critical, she needs to call her primary care physician or come to the emergency room. I should also note that this patient did have episode of bradycardia in the hospital with sinus pauses of up to 10 seconds, although these were related to episodes of nausea, vomiting, and likely due to vasovagal episode. She has not been having anymore of these nausea and vomiting. Also a concerted effort was made to advise the patient to stay in the hospital so that we could adjust medication including diabetes medication and hydration, which had been planned to further improve kidney function, but again she is adamant that she does not want to stay in the hospital any longer. She and does verbalize that she understand and she take full responsibility and include the possibility of her condition worsening and even . Her was at the bedside and supported her decision. She did sign the AMA form and leave. She has been prescribed antibiotics, Ceftin to complete a course of antibiotics. Norvasc for blood pressure. She may need further management of her blood pressure including titration of the medication and oxycodone for pain. PHYSICAL EXAMINATION: I did examine her. She was alert and oriented to self, place, and time. Rest of the physical exam is documented in progress note earlier today. DISPOSITION: The patient is leaving AMA. Nurse Delmi Dutton was present during the conversation. MD ALICIA Guillory/ESTELA / [phone]
== END 2021-02-03 16:53 | disposition left against medical advice (07) | DRG 872 ==
LOC: HO.ED 18:23 → HO.EDOVER 19:46 → HO.IMC 20:24
PROVIDERS: Admitting Provider Internal Medicine; Emergency Provider Emergency Medicine Emergency Medical Services; PCP Hospitalist; Visit Provider Internal Medicine
DX: A41.51 Sepsis due to Escherichia coli [E. coli] (principal); N13.6 Pyonephrosis; N17.9 Acute kidney failure, unspecified; E86.0 Dehydration; E87.5 Hyperkalemia; D64.9 Anemia, unspecified; E11.8 Type 2 diabetes mellitus with unspecified complications; B96.20 Unspecified Escherichia coli [E. coli] as the cause of diseases classified elsewhere; I49.5 Sick sinus syndrome; I44.30 Unspecified atrioventricular block; Z20.822 Contact with and (suspected) exposure to COVID-19; Z87.891 Personal history of nicotine dependence
CPT/HCPCS: 36415; 74176; 80048; 80053; 80076; 81001; 81003; 82728; 82947; 83036; 83605; 83690; 83735; 83930; 85025; 85027; 86850; 86900; 87040; 87077; 87086; 87088; 87147; 87186; 87205; 87635; 93005; 96361; 96365; 96375; 99284; 99285; J0696; J1170; J1885; J2270; J2405

== ENCOUNTER 2021-02-16 11:53 | Outpatient (REF) | payer MEDICARE, SELFPAY ==
[2021-02-16 15:48] LABS: Alanine Aminotransferase 16 U/L (0-31); Albumin Level 3.3 g/dL (3.5-5.0); Alkaline Phosphatase 92 U/L (39-117); Anion Gap 15 (12-20); Aspartate Amino Transferase 21 U/L (5-31); Bilirubin Total 0.6 mg/dL (0.0-1.0); Blood Urea Nitrogen 12 mg/dL (9-16); Calcium 8.6 mg/dL (8.4-10.2); Carbon Dioxide 28 mmol/L (22-29); Chloride 103 mmol/L (96-108); Estimated Glomerular Filt Rate 55; Potassium 3.6 mmol/L (3.3-5.1); Sodium 142 mmol/L (135-145); Total Protein 6.3 g/dL (6.5-8.0)
[2021-02-16 15:53] LABS: Glucose Random 451 mg/dL (60-115)
== END 2021-02-16 11:54 | disposition home or self-care (01) ==
LOC: HO.WFDLDS 11:53
PROVIDERS: Visit Provider Family Medicine
DX: N17.9 Acute kidney failure, unspecified (principal); E11.65 Type 2 diabetes mellitus with hyperglycemia
CPT/HCPCS: 36415; 80053

== ENCOUNTER → 2022-08-29 09:42 | Outpatient (BNVA) | payer MEDICARE, SELFPAY | PROVIDERS: PCP Family Medicine; Visit Provider Internal Medicine Endocrinology, Diabetes & Metabolism | DX: E11.65 Type 2 diabetes mellitus with hyperglycemia (principal); Z79.4 Long term (current) use of insulin; Z83.3 Family history of diabetes mellitus | CPT/HCPCS: 82947; 99202 ==

== ENCOUNTER → 2022-10-16 10:41 | Outpatient (BNVA) | payer MEDICARE, SELFPAY | PROVIDERS: PCP Family Medicine; Visit Provider Dietitian, Registered | DX: E11.9 Type 2 diabetes mellitus without complications (principal) | CPT/HCPCS: 97802 ==

== ENCOUNTER → 2022-10-17 13:51 | Outpatient (BNVA) | payer MEDICARE, SELFPAY | PROVIDERS: PCP Family Medicine; Visit Provider Registered Nurse Diabetes Educator | DX: E11.65 Type 2 diabetes mellitus with hyperglycemia (principal) | CPT/HCPCS: 99211 ==

== ENCOUNTER → 2022-11-06 10:32 | Outpatient (BNVA) | payer MEDICARE, SELFPAY | PROVIDERS: PCP Family Medicine; Visit Provider Registered Nurse Diabetes Educator | DX: E11.65 Type 2 diabetes mellitus with hyperglycemia (principal) | CPT/HCPCS: 99211 ==

== ENCOUNTER 2022-11-06 12:01 | Outpatient (REF) | payer MEDICARE, SELFPAY ==
[2022-11-06 14:06] LABS: Cholesterol 334 mg/dL; HDL Cholesterol 57 mg/dL; LDL Cholesterol Calculated 244 mg/dl; Triglycerides 166 mg/dL
== END 2022-11-06 12:02 | disposition home or self-care (01) ==
LOC: HO.10HDL 12:01
PROVIDERS: Visit Provider Internal Medicine Endocrinology, Diabetes & Metabolism
DX: E11.65 Type 2 diabetes mellitus with hyperglycemia (principal)
CPT/HCPCS: 36415; 80061

== ENCOUNTER → 2022-11-20 14:09 | Outpatient (BNVA) | payer MEDICARE, SELFPAY | PROVIDERS: PCP Family Medicine; Visit Provider Registered Nurse Diabetes Educator | DX: E11.9 Type 2 diabetes mellitus without complications (principal) | CPT/HCPCS: 99211 ==

== ENCOUNTER → 2022-12-05 10:21 | Outpatient (BNVA) | payer MEDICARE, SELFPAY | PROVIDERS: PCP Family Medicine; Visit Provider Internal Medicine Endocrinology, Diabetes & Metabolism | DX: E11.65 Type 2 diabetes mellitus with hyperglycemia (principal); E78.5 Hyperlipidemia, unspecified; Z79.4 Long term (current) use of insulin | CPT/HCPCS: 82947; 99212 ==

== ENCOUNTER 2022-12-05 11:22 | Outpatient (REF) | payer MEDICARE, SELFPAY ==
[2022-12-05 13:51] LABS: Estimated Average Glucose 189 mg/dL; Hemoglobin A1c % 8.2 %
[2022-12-05 14:16] LABS: Creatinine Urine 101.07 mg/dL
[2022-12-05 14:32] LABS: Microalbumin Urine > 2000.0 mg/L
== END 2022-12-05 11:23 | disposition home or self-care (01) ==
LOC: HO.10HDL 11:22
PROVIDERS: Visit Provider Internal Medicine Endocrinology, Diabetes & Metabolism
DX: E11.65 Type 2 diabetes mellitus with hyperglycemia (principal)
CPT/HCPCS: 36415; 82043; 83036

== ENCOUNTER 2023-03-25 11:25 | Outpatient (REF) | payer MEDICARE, SELFPAY ==
[2023-03-25 13:07] LABS: Anion Gap 12 (12-20); Blood Urea Nitrogen 54 mg/dL (9-16); Carbon Dioxide 25 mmol/L (22-29); Chloride 111 mmol/L (96-108); Cholesterol 157 mg/dL; Estimated Glomerular Filt Rate 20; Glucose Random 169 mg/dL (60-115); HDL Cholesterol 68 mg/dL; LDL Cholesterol Calculated 76 mg/dl; Potassium 5.6 mmol/L (3.3-5.1); Sodium 142 mmol/L (135-145); Triglycerides 66 mg/dL
== END 2023-03-25 11:26 | disposition home or self-care (01) ==
LOC: HO.LAB 11:25
PROVIDERS: PCP Family Medicine; Visit Provider Internal Medicine Endocrinology, Diabetes & Metabolism
DX: E11.65 Type 2 diabetes mellitus with hyperglycemia (principal)
CPT/HCPCS: 36415; 80048; 80061

== ENCOUNTER → 2023-03-26 10:40 | Outpatient (BNVA) | payer MEDICARE, SELFPAY | PROVIDERS: PCP Family Medicine; Visit Provider Internal Medicine Endocrinology, Diabetes & Metabolism | DX: E11.65 Type 2 diabetes mellitus with hyperglycemia (principal); Z79.4 Long term (current) use of insulin; E78.5 Hyperlipidemia, unspecified | CPT/HCPCS: 82947; 83036; 99212 ==

== ENCOUNTER → 2023-05-06 10:24 | Outpatient (BNVA) | payer MEDICARE, SELFPAY | PROVIDERS: PCP Family Medicine; Visit Provider Registered Nurse Diabetes Educator | DX: E11.9 Type 2 diabetes mellitus without complications (principal) | CPT/HCPCS: 99211 ==

== ENCOUNTER 2023-10-22 13:08 | Outpatient (AMB) | payer MEDICARE, SELFPAY ==
[2023-10-22 13:14] VITALS: BP 178/88; PULSE 86; BMI 33.3
--- NOTE | 2023-10-22 13:14 | A.OFFVIS_ITS ---
Intake Vital Signs 10/22/23 13:14 Height 5 ft 4 in Weight 193 lb 12.581 oz BMI 33.3 BP 178/88 H Blood Pressure Location Lt brachial Position Sitting Pulse 86 Pulse Source Pulse Oximeter Intake Visit Reasons: DM-LVM Intake Note: Patient present today to follow up on Type 2 Diabetes Mellitus. Patient receives DME supplies through: [facility] Last Diabetic Eye exam: 03/2023 Last Podiatry Visit: Does not see a Waiter Random Glucose: 103 mg/dl HgA1C: 6.0% Multifocal Lens Inspector Required: No Accompanied by: Spouse Allergies egg [EGGS] Allergy (Mild, Verified 10/22/23 13:19) DIARRHEA eggs Allergy (Unknown, Verified 10/22/23 13:19) Stomach Upset metformin Allergy (Unknown, Verified 10/22/23 13:19) Diarrhea, upset stomach HPI HPI Comments History of Present Illness Details 67 YO F who is seen in consultation for T2DM at the request of PCP. Initially diagnosed with T2DM in 27 yrs . Was initially started on treatment with metformin .-stopped because of GI upset Current regimen Lantus 8 units . Humalog 6-8 units before meals . Has skipped insulin deveral days Trulicity 0.75 mg Qwkly . during initiation Trulicity had episode of vomiting for 3 days but took 2nd dose without problems. Stopped Trulicity because GI upset Ap download shows she is using the Ap 71% of the time. Average glucose is 111 . 96% blood sugars are in range with 2% hyperglycemia and and 2% hypoglycemia No hypoglycemia Family history of T2DM in both parents -Type 2 DM . 10Has eyes checked yearly, last eye exam 03/2023, has retinopathy. Denies neuropathy has mild sx , not sees podiatry. Denies nephropathy, on HAO/ARB. Not has HLD, Not on statin. Denies CAD. Had diabetes education.yrs ago Recent basic metabolic panel shows marked worsening of kidney function with increased creatinine. Patient has appointment with Nephrology in [address] Pina [facility] Medical History (Updated 02/13/23 @ 16:45 by Khai Price CNP) Hyperlipidemia Anemia No known health problems Surgical History H/O arthroscopic knee surgery Hx of cataract surgery Hx of rotator cuff surgery Family History Mother Diabetes High blood pressure Father Heart rate problem Social History Household Members: Spouse and Family Housing: House Do you presently have visiting nurse or other home services: No Alcohol intake: current Alcohol intake frequency: holidays/special occasions only Comment: RLQ Patient Tobacco Use Status: Former Tobacco user e-Cigarette/Vaping Use: Never Used Second Hand Smoke Exposure: Yes Substance Use Type: Marijuana service: No Current occupational status: employed Current occupational exposures/hazards: No Cognitive needs: No Hearing needs: No Vision needs: No Physical Exam Absence of Cushingoid features. Absence of acromegalic features. Neck exam reveals nl size thyroid about 15 gms. No thyroid nodules palpable. No carotid bruits present. Lungs CTA. Heart S1 S2, Reg R/R. No M/R/ G. Skin exam reveals absence of vitiligo or acanthosis nigricans. Abdominal exam reveals Soft NT/ND with NA BS. No organomegaly present. Neck Other: . Extrem Other: Visual exam of foot performed. No ulcerations or open lesions. No onchomycosis, no callouses.Pulses 2 + distally Sensation intact to monofilament exam. Vibratory sensation sensed is Decreased with 128 Hz tuning fork Assessment & Plan Assessment & Plan (1) Uncontrolled diabetes mellitus: Code(s): E11.65 - Type 2 diabetes mellitus with hyperglycemia Plan: This is 67-year-old white female with history of type 2 diabetes being treated with g basal- bolus insulin with excellent improved glycemic control and no known microvascular or macrovascular complications but marked worsening of kidney function. She is experiencing decreasing insulin requirements as result to decreasing kidney function The plan is to continue the current regimen but decrease or discontinue insulin if continued hypoglycemia. She should follow up with Nephrology. At this point, there is no need for endocrine follow-up the patient to follow up with primary care provider regarding the diabetes and returned back to endocrinology should be deterioration her HbA1c (2) Hyperlipidemia: Code(s): E78.5 - Hyperlipidemia, unspecified Plan: patient currently on rosuvastatin 40 mg daily with LDL cholesterol at goal Coding Level of Care Code Est Pt Level 4 (11988) Diagnoses Uncontrolled diabetes mellitus E11.65 Hyperlipidemia E78.5
[2023-10-22 13:27] LABS: Glucose, Whole Blood 103 mg/dL (60-115)
== END 2023-10-22 13:54 | disposition home or self-care (01) ==
PROVIDERS: PCP Family Medicine; Visit Provider Internal Medicine Endocrinology, Diabetes & Metabolism
DX: E11.65 Type 2 diabetes mellitus with hyperglycemia (principal)
CPT/HCPCS: 99214

== ENCOUNTER → 2023-10-22 13:08 | Outpatient (BNVA) | payer MEDICARE, SELFPAY | PROVIDERS: Visit Provider Internal Medicine Endocrinology, Diabetes & Metabolism | DX: E11.65 Type 2 diabetes mellitus with hyperglycemia (principal); E78.5 Hyperlipidemia, unspecified | CPT/HCPCS: 82947; 83036; 99212 ==

== ENCOUNTER 2023-12-08 13:15 | Outpatient (AMB) | payer MEDICARE, SELFPAY ==
[2023-12-08 14:36] VITALS: BP 216/94; PULSE 99; TEMP 36.4; O2SAT 100; BMI 33.5
--- NOTE | 2023-12-08 14:36 | MHC.OFFWIV ---
Intake Vital Signs 12/08/23 14:36 Height 5 ft 4 in Weight 195 lb 6 oz BMI 33.5 BP 216/94 H Blood Pressure Location Rt brachial Position Sitting Pulse 99 Pulse Source Pulse Oximeter Temp 97.5 F Temp Source Temporal Artery Scan Pulse Oximetry (%) 100 Oxygen Delivery Method Room Air Intake Visit Reasons: EST/eye issues and cold symptoms([phone]) Patient Tobacco Use Status: Former Tobacco user Allergies egg [EGGS] Allergy (Mild, Verified 12/08/23 14:36) DIARRHEA eggs Allergy (Unknown, Verified 12/08/23 14:36) Stomach Upset metformin Allergy (Unknown, Verified 12/08/23 14:36) Diarrhea, upset stomach Do you need a note to return to daycare/school/sports/work: No HPI HPI Comments History of Present Illness Details Patient presents to the walk-in today with complaints of congestion and bilateral irritation Patient states about 1 week ago she developed itching and crusty drainage to both eyes She has been applying ajcw-los-sihjvpa eyedrops without improvement Denies changes in her vision, denies pain with extraocular movement Has been avoiding touching or rubbing them, using warm compresses to clean them Reports eyes are itchy she has been taking Benadryl with some improvement of the aging Patient's blood pressure today elevated She states she was recently started on nifedipine and is taking as prescribed Monitoring her blood pressure at home and reports it is 140/80's She attributes her elevated reading today to ?white coat syndrome She denies headache, chest pain, weakness, dizziness, palpitations PFSH Medical History (Updated 12/08/23 @ 15:36 by Kaley Ochoa [employer]AVERN KEEPER, [employer]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) Hyperlipidemia Anemia No known health problems Surgical History Hx of cataract surgery Hx of rotator cuff surgery H/O arthroscopic knee surgery Family History Mother Diabetes High blood pressure Father Heart rate problem Social History Household Members: Spouse and Family Housing: House Do you presently have visiting nurse or other home services: No Alcohol intake: current Alcohol intake frequency: holidays/special occasions only Comment: RLQ Patient Tobacco Use Status: Former Tobacco user e-Cigarette/Vaping Use: Never Used Second Hand Smoke Exposure: Yes Substance Use Type: Marijuana service: No Current occupational status: employed Current occupational exposures/hazards: No Cognitive needs: No Hearing needs: No Vision needs: No Review of Systems Const All systems reviewed & are unremarkable except as noted in HPI and below Physical Exam Vital Signs: Last Vital Signs Temp 97.5 F 12/08/23 14:36 Pulse 99 12/08/23 14:36 BP 216/94 H 12/08/23 14:36 Pulse Ox 100 12/08/23 14:36 Oxygen Delivery Method Room Air 12/08/23 14:36 BMI result Body Mass Index 33.5 General: awake, alert, oriented. Answers questions appropriately. Fully engaged in examination. Skin: warm, dry, intact HEENT: TMs intact bilaterally, without erythema or exudate. Posterior pharynx without erythema or exudate. Conjunctival injection, some crusted drainage noted to eyelashes. Erythema and edema noted right upper eyelid and left lower eyelid EOM intact Cardiac: External chest normal in appearance. Respiratory: LSCTAB. Abdomen: without gross distension. Neurological: Oriented to person, place, time and situation. Thought process intact. Psychiatric: Appropriate mood and affect. Good judgment and insight. Assessment & Plan Assessment & Plan (1) Blepharitis: Code(s): H01.009 - Unspecified blepharitis unspecified eye, unspecified eyelid (2) URI (upper respiratory infection): Code(s): J06.9 - Acute upper respiratory infection, unspecified (3) Elevated blood pressure reading: Code(s): R03.0 - Elevated blood-pressure reading, without diagnosis of hypertension Plan URI with bilateral blepharitis Eyedrops to both eyes 4 times daily for 7 days Avoid touching, rubbing the eyes. Do not use same area of facecloth to clean both eyes. Wash hands often. Rest, drink plenty of fluids, Tylenol or Motrin as needed Patient advised to closely monitor her blood pressure at home. Follow-up with PCP or Cardiology for further elevated readings Seek treatment in the ER for chest pain, slurred speech, unilateral weakness, sudden severe headache, syncope, palpitations or any other concerns All questions and concerns were answered during the visit. Patient agrees with the plan. Follow up with pcp or return to walkin for any new or worsening symptoms. Medications: New benzonatate 100 mg PO BID PRN 20 caps 0RF cough polymyxin B sulf-trimethoprim 10,000 unit- 1 mg/mL instill both eyes while awake; do not exceed 6 doses in 24 hours 1 drp ophthalmic (eye) QID 7 days 10 mL 0RF Coding Level of Care Code Est Pt Level 3 (48053) Diagnoses Blepharitis H01.009 URI (upper respiratory infection) J06.9 Elevated blood pressure reading R03.0
== END 2023-12-08 16:52 | disposition home or self-care (01) ==
PROVIDERS: PCP Family Medicine; Visit Provider Registered Nurse Emergency
DX: H01.009 Unspecified blepharitis unspecified eye, unspecified eyelid (principal); J06.9 Acute upper respiratory infection, unspecified; R03.0 Elevated blood-pressure reading, without diagnosis of hypertension
CPT/HCPCS: 99213

== ENCOUNTER 2024-01-31 11:54 | Inpatient (IN) | payer MEDICARE, SELFPAY ==
[2024-01-31] VITALS (15 sets, daily range): BP systolic 139–174; BP diastolic 64–106; PULSE 85–96; RESP 17–24; TEMP 35.5–37; O2SAT 89–95; BMI 34.5
--- NOTE | ~2024-01-31 | XR_ITS ---
EXAMINATION: XR CHEST CLINICAL INFORMATION: Shortness of breath. COMPARISON: CT dated 01/28/2021 TECHNIQUE: Frontal view of the chest was obtained. FINDINGS: Patchy airspace consolidation is present in the right lung base with a associated pleural effusion. Small left pleural effusion and associated left lower lobe atelectasis. Lung apices are clear. Cardiac silhouette is borderline enlarged. Pulmonary vasculature is normal. Degenerative spondylosis is present in the thoracic spine. Old healed right proximal humeral fracture. Bones are osteopenic. Degenerative arthritis in the glenohumeral joints. XR/XR chest 1V IMPRESSION: Patchy airspace consolidation in the right lung base, concerning for pneumonia Small bilateral pleural effusions, right greater than left.
--- NOTE | ~2024-01-31 | NM_ITS ---
EXAMINATION: HI LUNG IMAGE PERFUSION CLINICAL INFORMATION: Hypoxia, SOB COMPARISON: Chest x-ray 01/31/2024 TECHNIQUE: Following intravenous administration of 4 mCi of 90 9M technetium MAA, imaging of both lungs were obtained multiple projections. Ventilation study was not performed. FINDINGS: There is normal flow seen to all segments of both lungs without any subsegmental or segmental defect. Ventilation study was not performed HI/HI pul perfusion IMPRESSION: Normal perfusion study.
--- NOTE | ~2024-01-31 | CT_ITS ---
EXAMINATION: CT ABDOMEN AND PELVIS WITHOUT CONTRAST CLINICAL INFORMATION: SUPRIYA, rule out obstructive uropathy COMPARISON: 01/28/2021 TECHNIQUE: Multidetector volumetric imaging was performed from the superior aspect of the liver through the pubic symphysis. Sagittal and coronal reformatted images were obtained on the technologist's workstation. This CT examination was performed using dose optimization techniques as appropriate, variously including the following: *Automated exposure control *Adjustment of mA and/or kV according to patient size (this includes techniques or standardized protocols for targeted exams where dose is matched to indication/reason for exam; i.e. extremities or head) *Use of iterative reconstruction technique DLP: 768 mGy-cm FINDINGS: LUNG BASES: Bibasilar opacities are present along with small right and trace left pleural effusions, as noted on today's earlier chest x-ray. LIVER, GALLBLADDER, AND BILIARY TREE: The liver is normal in size, shape, and attenuation. No focal hepatic lesion or biliary ductal dilatation is identified on this noncontrast exam. The gallbladder is unremarkable with no evidence of radiopaque gallstones, gallbladder wall thickening, or obvious pericholecystic inflammatory changes. PANCREAS: Moderate fatty atrophy. SPLEEN: Unremarkable. ADRENAL GLANDS: Unremarkable. KIDNEYS AND URETERS: No hydronephrosis or obstructing calculus bilaterally. There is nonspecific bilateral perinephric stranding. BLADDER: Decompressed with a Carranza catheter in place. GASTROINTESTINAL TRACT: Colonic diverticulosis is noted. No evidence of bowel obstruction or significant wall thickening. There is nonspecific asymmetric stranding in the right paracolic gutter as compared to the left side, of uncertain etiology/clinical significance. Appendix appears nondilated. No free air is seen. ABDOMINAL WALL: No significant hernia is appreciated. LYMPH NODES: Normal. VASCULAR: There is extensive vascular calcification. PELVIC VISCERA: Unremarkable. OSSEOUS STRUCTURES: Multilevel degenerative changes in the spine. CT/CT abdomen pelvis wo IV con IMPRESSION: 1. No hydronephrosis or obstructing calculus. 2. Nonspecific stranding in the right paracolic gutter, suggesting inflammation of uncertain etiology/clinical significance. No definite adjacent bowel abnormality is seen to strongly suggest a colitis, and the appendix appears nondilated. 3. Small right and trace left pleural effusions along with bibasilar opacities as noted on earlier chest x-ray.
--- NOTE | ~2024-01-31 | XR_ITS ---
EXAMINATION: XR CHEST CLINICAL INFORMATION: Status post right EEG central line placement. COMPARISON: Chest 01/31/2024 at 12:38 PM. TECHNIQUE: Frontal view of the chest was obtained. FINDINGS: There is interval insertion of a right central line with its tip in the proximal SVC. There is no pneumothorax. The lungs are hypoexpanded with bibasilar haziness slightly worse in the right base. Heart size is enlarged. Pulmonary vascularity is normal. No gross bony abnormality seen. XR/XR chest 1V IMPRESSION: Bibasilar haziness worse in the right lower lobe suggestive of infiltrate/pneumonia. New right central venous catheter tip in proximal SVC. No pneumothorax.
--- NOTE | 2024-01-31 12:01 | ECG_ITS ---
Test Reason : DYSPNEA Blood Pressure : / mmHG Vent. Rate : 092 BPM Atrial Rate : 092 BPM P-R Int : 176 ms QRS Dur : 098 ms QT Int : 396 ms P-R-T Axes : 040 -20 152 degrees QTc Int : 489 ms Normal sinus rhythm Left ventricular hypertrophy with repolarization abnormality ( [place] product ) Possible Lateral infarct , age undetermined Abnormal ECG When compared with ECG of 31-JAN-2021 22:36, QRS duration has increased Borderline criteria for Lateral infarct are now Present ST now depressed in Lateral leads T wave inversion now evident in Lateral leads Referred By: Cassy Lau Electronically Signed By:ABEBE PALOMINO
--- NOTE | 2024-01-31 12:09 | PC.RT ---
pt came in via EMS on a non rebreather. Placed on a 12 liter Oxymask Sats 93% aware
--- NOTE | 2024-01-31 12:14 | ED_ITS ---
HPI - SOB/Dyspnea General Chief Complaint: Dyspnea Stated Complaint: sob Time Seen by Provider: 01/31/24 12:00 Source: patient, EMS and old records reviewed Mode of arrival: EMS Limitations: no limitations History of Present Illness HPI Narrative: 68-year-old female pertinent history of bronchial asthma/ environmental allergy, DM controlled with insulin and diet, previous hospitalization for SUPRIYA secondary to pyelonephritis/ sepsis. Presented by ambulance for 4 days of upper respiratory symptoms with coughing, body ache, diarrhea, vomiting, unable to keep p.o. challenge, decreased urine output for the past 4 days. patient been having exertional dyspnea for the past 4 days, PND, Could not sleep for the past 4 nights due to SOB, found by EMS at to be hypoxic at 70% patient was placed on non-rebreather during transportation her O2 sat was in the 90s, in the emergency department patient was placed on OxyMask 12 L satting 90%. Patient declined recent travel or prolonged immobilization, no history of PE or DVT, no lower extremity swelling or tenderness. No chest pain , no exposure to sick contacts. Related Data Home Medications Medication Instructions Recorded Confirmed pen needle, diabetic 32 gauge x 12/05/22 02/13/2311/13 (BD Ultra-Fine Micro Pen Needle) nifedipine 60 mg tablet,extended 60 mg PO DAILY 10/22/23 release Previous Rx's Medication Instructions Recorded blood sugar diagnostic (OneTouch #100 ea 10/17/22 Verio test strips) blood-glucose meter (OneTouch #1 ea 10/17/22 Verio Meter) lancets 30 gauge (OneTouch Delica #100 ea 01/10/23 Lancets) insulin lispro 100 unit/mL See Rx Instructions subcut 01/29/23 subcutaneous pen (Humalog KwikPen .COMPLEX #15 mL (U-100) Insulin) insulin glargine 100 unit/mL (3 8 unit (0.08 mL) subcut QPM 30 09/11/23 mL) subcutaneous pen (Lantus days #3 mL Solostar U-100 Insulin) benzonatate 100 mg capsule 100 mg PO BID PRN cough #20 caps 12/08/23 polymyxin B sulfate 10,000 1 drp ophthalmic (eye) QID 7 days 12/08/23 unit-trimethoprim 1 mg/mL eye drops #10 mL quetiapine 50 mg tablet 50 mg PO BEDTIME #30 tabs 02/26/24 Allergies Allergy/AdvReac Type Severity Reaction Status Date / Time egg [EGGS] Allergy Mild DIARRHEA Verified 01/31/24 11:58 eggs Allergy Unknown Stomach Verified 01/31/24 11:58 Upset metformin Allergy Unknown Diarrhea, Verified 01/31/24 11:58 upset stomach Review of Systems 2 Review of Systems: All other systems are reviewed and are negative Constitutional: Reports as per HPI and Reports no additional constitutional complaints Eyes: Reports as per HPI and Reports no additional eye complaints Reports system reviewed and no additional complaints, except as documented Cardiovascular: Reports as per HPI and Reports no additional cardiovascular complaints Respiratory: Reports as per HPI and Reports no additional respiratory complaints Gastrointestinal: Reports as per HPI and Reports no additional gastrointestinal complaints Genitourinary: Reports no additional female genitourinary complaints Musculoskeletal: Reports no additional musculoskeletal complaints Skin/Breast: Reports system reviewed and no additional complaints, except as docu Psychiatric: Reports no additional psychiatric complaints Endocrine: Reports no additional endocrine complaints Hematologic/Lymphatic: Reports no additional hematologic/lymphatic complaints Allergic/Immunologic: Reports no additional allergic/immunologic complaints Reports system reviewed and no additional complaints, except as documented and Reports Abnormal speech present [facility] Past Medical History Medical History Hyperlipidemia Anemia No known health problems Surgical History Hx of cataract surgery Hx of rotator cuff surgery H/O arthroscopic knee surgery Family History Family History Mother Diabetes High blood pressure Father Heart rate problem Social History Social History Household Members: Spouse and Family Housing: House Do you presently have visiting nurse or other home services: No Alcohol intake: current Alcohol intake frequency: holidays/special occasions only Comment: RLQ Patient Tobacco Use Status: Former Tobacco user Smoked in Last 30 Days: No e-Cigarette/Vaping Use: Never Used Second Hand Smoke Exposure: Yes Use of substances other than those prescribed or required for medical reasons: No Substance Use Type: Marijuana Advance Directives: No Advance Directives Information Provided: Yes Nutrition Risks: No Nutritional Risk service: No Current occupational status: employed Current occupational exposures/hazards: No Cognitive needs: No Hearing needs: No Vision needs: No Physical Exam 2 Vital Signs: Vital Signs: Last Vital Signs Temp 97.3 F 01/31/24 15:57 Pulse 91 01/31/24 15:57 Resp 24 H 01/31/24 15:57 BP 174/105 H 01/31/24 15:57 Pulse Ox 92 01/31/24 15:57 O2 Del Method Oxymask 01/31/24 15:57 O2 Flow Rate 15 01/31/24 15:57 Oxygen Flow Rate 12 01/31/24 11:59 BMI result Body Mass Index 34.5 Vital signs have been reviewed and appear to be correct. Blood pressure elevated. Heart rate normal. Respiratory rate normal. Temperature normal. Hypoxic on room air ED%, with OxyMask 12 L 90%. Appearance: Alert. Oriented X3. No acute distress. Head: Normal external exam. Normocephalic. Atraumatic. No Betancourt signs noted. No raccoon eyes noted Eyes: PERRLA. EOMI. Conjunctiva and sclera normal. Eyelids normal. ENT: TM's Normal. Pharynx normal. Uvula midline. Moist mucous membranes. No trismus noted. No drooling noted. No muffled voice noted. Neck: Normal inspection. Neck supple. FROM. No adenopathy. Thyroid Normal. No meningeal signs. No neck mass noted. CVS: Normal heart rate and rhythm. Heart sound normal. No murmurs noted. Pulses normal throughout. Respiratory: No respiratory distress. Painless inspiration. Breath sounds normal. bilateral lung rales to the lower lung field. Chest nontender. No accessory muscle usage noted or decreased air movement noted. Abdomen: Soft and nontender. Bowel sounds normal in all 4 quadrants. No distention noted. No organomegaly noted. No visible injury noted. Back: No CVA tenderness. Full range of motion noted. Skin: Skin warm and dry. Normal skin color. Normal skin turgor. No rashes/lesions/lacerations noted. Extremities: No lower extremity edema. Extremities exhibit normal range of motion. Extremities nontender. Neuro: Oriented X 3. Cranial nerve exam: II-XII are grossly intact No motor deficit. No sensory deficit. Reflexes normal. Course Reevaluation(s) Reevaluation #1: 68-year-old female came in with 4 days of decreased p.o. intake and dehydration with decreased urine output. 1. Acute renal failure the case discussed with Dr. Guzman, a L of normal saline hydration cautiously since the patient at risk of pulmonary congestion. 2. Mild metabolic acidosis with low bicarb will give 3 amps of bicarb in 1 L of D5W over 75 cc/hour. 3. Non STEMI case discussed with Dr. Hudson will start the patient on Aspirin, low dose of heparin , nitro. 4. Severe sepsis with SUPRIYA with no septic shock, patient received broad-spectrum antibiotic Zosyn/ ceftriaxone, sepsis is originated from UTI/pneumonia. 5. Hypoxia with elevated D-dimer can not do CT angio due to SUPRIYA will consider V/Q scan but also patient will be covered with heparin IV. 6. Central line for venous access please refer to procedure note. 7. ICU admission the case was discussed with Dr. Gutierrez who accepted the patient to ICU. Time: 15:32 Medications Administered Generic Name Dose Route Start Last Admin Trade Name Freq PRN Reason Stop Dose Admin Heparin Sodium/Sodium Chloride 25,000 unit in 250 mls @ 0 mls/hr 01/31/24 13:45 01/31/24 15:37 Heparin Sodium,Porcine/1/2ns IVCONT 11.7 units/kg/hr .Q0M RONAK 10 mls/hr Administration Protocol Per Protocol Sodium Bicarbonate 150 meq/ 1,000 mls @ 75 mls/hr 01/31/24 13:45 01/31/24 14:44 Dextrose IV 75 mls/hr .[id number] RONAK Administration Discontinued Medications Generic Name Dose Route Start Last Admin Trade Name Freq PRN Reason Stop Dose Admin Aspirin 81 mg 01/31/24 15:42 01/31/24 15:53 Aspirin Enteric Coated 81 Mg Tablet.Dr ANGEL 01/31/24 15:43 81 mg ONCE ONE Administration Sodium Chloride 1,000 mls @ 999 mls/hr 01/31/24 13:08 01/31/24 13:37 Ns IV 01/31/24 14:08 999 mls/hr .Q1H1M ONE Administration Ceftriaxone Sodium 1 gm/ 50 mls @ 100 mls/hr 01/31/24 13:49 01/31/24 15:14 Sodium Chloride IV 01/31/24 14:18 Infused ONCE ONE Infusion Piperacillin Sod/Tazobactam 50 mls @ 100 mls/hr 01/31/24 14:03 01/31/24 15:42 Sod 3.375 gm/ Sodium Chloride IV 01/31/24 14:32 Infused ONCE ONE Infusion Levofloxacin 750 mg in 150 mls @ 100 mls/hr 01/31/24 14:41 01/31/24 16:06 Levaquin IV 01/31/24 16:10 100 mls/hr ONCE ONE Administration Nitroglycerin 0.5 inch 01/31/24 13:38 01/31/24 14:06 Nitroglycerin 2 % Oint 1 Gm Packet TRANSDERMA 01/31/24 13:39 0.5 inch ONCE ONE Administration Medical Decision Making Differential Diagnosis Differential Diagnoses: The differential diagnosis associated with the presentation includes ( SUPRIYA, electrolyte derangement, dehydration, sepsis, pneumonia, UTI, ACS, pulmonary embolism, pleural effusion, CHF.) Admission/Observation Consideration of admission/observation: Escalation of care including admission/observation considered Consult Healthcare Provider Management of the patient was discussed with: Turret Lathe Set Up Operator ( Dr. Guzman ( nephrology )/Dr. Hudson (cardiology )/Dr. Gutierrez (critical care )) Lab Data MDM Lab Attestation statement: I reviewed the patient's lab results. 01/31/24 14:33 01/31/24 12:19 Labs: Lab Results 01/31/24 01/31/24 01/31/24 Range/Units 12:19 13:08 13:18 WBC 9.4 (4.8-10.8) X10*3/uL RBC 3.45 L (4.20-5.50) X10*6/uL Hgb 10.7 L (12.0-16.0) g/dl Hct 31.7 L (37.0-47.0) % MCV 91.9 (80.0-98.0) fL MCH 31.0 (27.0-33.0) pg MCHC 33.8 (31.0-35.0) g/dl RDW 15.1 (11.0-16.0) % Plt Count 295 (160-400) X10*3/uL MPV 12.4 H (9.4-12.3) fL Immature Gran % (Auto) 0.4 (0.0-0.4) % Neut % (Auto) 86.0 H (45-73) % Lymph % (Auto) 8.3 L (20-40) % [place] % (Auto) 3.7 (2-11) % Eos % (Auto) 1.3 (0-4) % Baso % (Auto) 0.3 (0-2) % Lymph # (Auto) 0.8 L (1.2-4.9) X10*3/uL [place] # (Auto) 0.4 (0.1-1.2) X10*3/uL Eos # (Auto) 0.1 (0.0-0.4) X10*3/uL Baso # (Auto) 0.0 (0.0-0.2) X10*3/uL Abs Immat Gran (auto) 0.04 H (0.00-0.03) X10*3/uL Absolute Neuts (auto) 8.1 (2.0-8.3) x10*3/uL Absolute Nucleated RBC 0.050 H (0.0-0.012) X10*3/uL Nucleated RBC % (auto) 0.5 H (0.0-0.2) /100WBC PT 12.4 (11.1-13.3) SEC INR 1.0 (0.9-1.1) APTT 27.1 (26.0-36.8) SEC D-Dimer High Sensitivty 837 NG/ML O2 Saturation 91.0 % ABG pH at Pt Temp 7.37 (7.35-7.45) ABG pCO2 at Pt Temp 22 L (32-45) mmHg ABG pO2 at Pt Temp 70 L (83-108) mmHg ABG HCO3 13 L (22-26) mmol/L ABG Base Excess (Actual) -9.9 mmol/L Sodium 138 (135-145) mmol/L Potassium 4.9 (3.3-5.1) mmol/L Chloride 104 (96-108) mmol/L Carbon Dioxide 15 L (22-29) mmol/L Anion Gap 24 H (12-20) BUN 109 H (9-16) mg/dL Creatinine 6.86 H* (0.5-1.4) mg/dL Estim Creat Clear Calc 7.9 Estimated GFR 6 Random Glucose 175 H (60-115) mg/dL Lactic Acid (0.5-2.0) mmol/L Calcium 8.5 (8.4-10.2) mg/dL Total Bilirubin 0.5 (0.0-1.0) mg/dL Direct Bilirubin 0.2 (0.0-0.5) mg/dL AST 57 H (5-31) U/L ALT 96 H (0-31) U/L Alkaline Phosphatase 49 (39-117) U/L Troponin I High Sens 49610.9 H* (<3.5-17.0) ng/L B-Natriuretic Peptide 8451 H (<100) pg/mL Total Protein 7.0 (6.5-8.0) g/dL Albumin 3.3 L (3.5-5.0) g/dL Lipase 20 (8-78) U/L Urine Color Yellow Urine Appearance Clear Urine pH 7.5 (5.0-9.0) Ur Specific Adams 1.020 (1.005-1.025) Urine Protein >=1000 (4+) H (Neg-Trace) mg/dL Urine Glucose (UA) 100 H (Negative) mg/dL Urine Ketones Trace (Negative) mg/dL Urine Blood Small (1+) H (Negative) Urine Nitrite Negative (Negative) Ur Leukocyte Esterase Trace H (Negative) Urine RBC 11-20 H (0-2) /HPF Urine WBC 11-20 H (0-5) /HPF Ur Squamous Epith Cells 0-2 (0-2) /HPF Urine Bacteria 1+ (None Seen) Hyaline Casts 0-2 (0-2) /LPF Ur Random Sodium < 20.0 mmol/L Ur Random Potassium 51.4 mmol/L Ur Random Chloride < 20.0 mmol/L Influenza Type A (PCR) NEGATIVE (Negative) Influenza Type B (PCR) NEGATIVE (Negative) RSV RNA Qual (PCR) NEGATIVE (Negative) SARS-CoV-2 RNA (RT-PCR) NEGATIVE (Negative) 01/31/24 Range/Units 14:33 WBC 8.2 (4.8-10.8) X10*3/uL RBC 3.65 L (4.20-5.50) X10*6/uL Hgb 11.4 L (12.0-16.0) g/dl Hct 35.2 L (37.0-47.0) % MCV 96.4 (80.0-98.0) fL MCH 31.2 (27.0-33.0) pg MCHC 32.4 (31.0-35.0) g/dl RDW 15.4 (11.0-16.0) % Plt Count 293 (160-400) X10*3/uL MPV 12.8 H (9.4-12.3) fL Immature Gran % (Auto) (0.0-0.4) % Neut % (Auto) (45-73) % Lymph % (Auto) (20-40) % [place] % (Auto) (2-11) % Eos % (Auto) (0-4) % Baso % (Auto) (0-2) % Lymph # (Auto) (1.2-4.9) X10*3/uL [place] # (Auto) (0.1-1.2) X10*3/uL Eos # (Auto) (0.0-0.4) X10*3/uL Baso # (Auto) (0.0-0.2) X10*3/uL Abs Immat Gran (auto) (0.00-0.03) X10*3/uL Absolute Neuts (auto) (2.0-8.3) x10*3/uL Absolute Nucleated RBC 0.040 H (0.0-0.012) X10*3/uL Nucleated RBC % (auto) 0.5 H (0.0-0.2) /100WBC PT (11.1-13.3) SEC INR (0.9-1.1) APTT (26.0-36.8) SEC D-Dimer High Sensitivty NG/ML O2 Saturation % ABG pH at Pt Temp (7.35-7.45) ABG pCO2 at Pt Temp (32-45) mmHg ABG pO2 at Pt Temp (83-108) mmHg ABG HCO3 (22-26) mmol/L ABG Base Excess (Actual) mmol/L Sodium (135-145) mmol/L Potassium (3.3-5.1) mmol/L Chloride (96-108) mmol/L Carbon Dioxide (22-29) mmol/L Anion Gap (12-20) BUN (9-16) mg/dL Creatinine (0.5-1.4) mg/dL Estim Creat Clear Calc Estimated GFR Random Glucose (60-115) mg/dL Lactic Acid 1.8 (0.5-2.0) mmol/L Calcium (8.4-10.2) mg/dL Total Bilirubin (0.0-1.0) mg/dL Direct Bilirubin (0.0-0.5) mg/dL AST (5-31) U/L ALT (0-31) U/L Alkaline Phosphatase (39-117) U/L Troponin I High Sens (<3.5-17.0) ng/L B-Natriuretic Peptide (<100) pg/mL Total Protein (6.5-8.0) g/dL Albumin (3.5-5.0) g/dL Lipase (8-78) U/L Urine Color Urine Appearance Urine pH (5.0-9.0) Ur Specific Adams (1.005-1.025) Urine Protein (Neg-Trace) mg/dL Urine Glucose (UA) (Negative) mg/dL Urine Ketones (Negative) mg/dL Urine Blood (Negative) Urine Nitrite (Negative) Ur Leukocyte Esterase (Negative) Urine RBC (0-2) /HPF Urine WBC (0-5) /HPF Ur Squamous Epith Cells (0-2) /HPF Urine Bacteria (None Seen) Hyaline Casts (0-2) /LPF Ur Random Sodium mmol/L Ur Random Potassium mmol/L Ur Random Chloride mmol/L Influenza Type A (PCR) (Negative) Influenza Type B (PCR) (Negative) RSV RNA Qual (PCR) (Negative) SARS-CoV-2 RNA (RT-PCR) (Negative) Independent Interpretation I performed an independent interpretation of an: Plain X-Ray ( chest: Patchy airspace consolidation in the right lung base, concerning for pneumonia Small bilateral pleural effusions, right greater than left.) and CT Scan ( abdomen and pelvis:1. No hydronephrosis or obstructing calculus. 2. Nonspecific stranding in the right paracolic gutter, suggesting inflammation of uncertain etiology/clinical significance. No definite adjacent bowel abnormality is seen to strongly suggest a colitis, and the appendix appears non) Radiology Impression Discussion of test interpretation with radiology: I have reviewed the radiologist's reading. Chronic Conditions Patient?s care impacted by: Diabetes Procedures Central Line Placement Right IJ: Time Out Performed: Yes Patient Placed on Monitor/Pulse Ox: Yes MD Prep: mask, gown and gloves Central Line Prep: Chlorhexidine scrub Local Anesthetic: lidocaine 1% Amount of anesthesia used (mL): 3 Ultrasound Used for Placement: Yes Central Line Lumen Inserted: triple Post Procedure: good blood return, all ports aspirated, flushed, capped and sterile dressing applied Post Procedure X-Ray: tip of catheter in good position and no pneumothorax seen Patient Tolerated Procedure: well Complications: none Critical Care Time Critical Care Time Critical Care Time: Yes Total Critical Care Time: 60 Attestation: I spent 60 minutes providing critical care service to the patient, this including time spent at the bedside to evaluate the patient, reassess the patient, monitoring vital signs, review labs, and radiographic studies, counseling the patient/family, discussing the case with consultants, disposition the patient. Discharge Plan Discharge Clinical Impression: SUPRIYA (acute kidney injury), Severe sepsis, Non-ST elevation PA (NSTEMI), Pneumonia Patient Disposition: Admitted As Inpatient Interventions: Admission Worksheet (ED) Last Done: 01/31/24 16:35
[2024-01-31 12:24] LABS: Basophils Percent Auto 0.3 % (0-2); Eosinophils Absolute Auto 0.1 X10*3/uL (0.0-0.4); Eosinophils Percent Auto 1.3 % (0-4); Hematocrit 31.7 % (37.0-47.0); Hemoglobin 10.7 g/dl (12.0-16.0); Imm Gran Abs Auto 0.04 X10*3/uL (0.00-0.03); Imm Gran Pct Auto 0.4 % (0.0-0.4); Lymphocytes Absolute Auto 0.8 X10*3/uL (1.2-4.9); Lymphocytes Percent Auto 8.3 % (20-40); MANUAL DIFF FLAG NO; Mean Corpuscular HGB Conc 33.8 g/dl (31.0-35.0); Mean Corpuscular Volume 91.9 fL (80.0-98.0); Mean Platelet Volume 12.4 fL (9.4-12.3); Monocytes Absolute Auto 0.4 X10*3/uL (0.1-1.2); Monocytes Percent Auto 3.7 % (2-11); NRBC Pct Auto 0.5 /100WBC (0.0-0.2); Neutrophils Absolute Auto 8.1 x10*3/uL (2.0-8.3); Platelet Count 295 X10*3/uL (160-400); Red Blood Count 3.45 X10*6/uL (4.20-5.50); Red Cell Distribution Width 15.1 % (11.0-16.0); White Blood Count 9.4 X10*3/uL (4.8-10.8)
[2024-01-31 12:30] LABS: Prothrombin Time 12.4 SEC (11.1-13.3)
[2024-01-31 12:32] LABS: D Dimer High Sensitivity 837 NG/ML
[2024-01-31 12:33] LABS: Partial Thromboplastin Time 27.1 SEC (26.0-36.8)
[2024-01-31 12:44] LABS: Alanine Aminotransferase 96 U/L (0-31); Albumin Level 3.3 g/dL (3.5-5.0); Alkaline Phosphatase 49 U/L (39-117); Anion Gap 24 (12-20); Aspartate Amino Transferase 57 U/L (5-31); Bilirubin Direct 0.2 mg/dL (0.0-0.5); Bilirubin Total 0.5 mg/dL (0.0-1.0); Blood Urea Nitrogen 109 mg/dL (9-16); Calcium 8.5 mg/dL (8.4-10.2); Carbon Dioxide 15 mmol/L (22-29); Chloride 104 mmol/L (96-108); Creatinine Clr Calc Pharmacy 7.9; Estimated Glomerular Filt Rate 6; Glucose Random 175 mg/dL (60-115); Lipase 20 U/L (8-78); Potassium 4.9 mmol/L (3.3-5.1); Sodium 138 mmol/L (135-145)
[2024-01-31 13:06] LABS: B Type Natriuretic Peptide 8451 pg/mL (<100)
[2024-01-31 13:15] LABS: ABG Base Excess -9.9 mmol/L; ABG HCO3 13 mmol/L (22-26); ABG pCO2 22 mmHg (32-45); ABG pH 7.37 (7.35-7.45); ABG pO2 70 mmHg (83-108)
--- NOTE | 2024-01-31 13:18 | PC.NURSE ---
18F Carranza inserted withou tissus, urine straw colored draining into bedside bag- primary RN aware
[2024-01-31 13:27] LABS: Appearance Urine Clear; Color Urine Yellow; Glucose Urine UA 100 mg/dL (Negative); Leukocyte Esterase Urine Trace (Negative); Nitrite Urine Negative (Negative); PH 7.5 (5.0-9.0); UMIC TRIGGER UACC YES; Urine Blood Small (1+) (Negative); Urine Ketones Trace mg/dL (Negative); Urine Protein >=1000 (4+) mg/dL (Neg-Trace)
[2024-01-31 13:32] LABS: Bacteria Urine 1+ (None Seen); Hyaline Casts Urine 0-2 /LPF (0-2); Squamous Epithelial Cell Urine 0-2 /HPF (0-2); UACC Culture Trigger YES
[2024-01-31] MEDS: 0.9 % Sodium Chloride 1,000 ML 999 ML IV (13:37)
[2024-01-31 13:41] LABS: ABG Refer to POC result
[2024-01-31 13:51] LABS: Influenza A PCR NEGATIVE (Negative); Influenza B PCR NEGATIVE (Negative); Resp Syncy Virus RNA Qual PCR NEGATIVE (Negative); SARS COV2 PCR INHOUSE NEGATIVE (Negative)
[2024-01-31] MEDS: Nitroglycerin 2 % Oint 1 GM Packet 0.5 INCH TRANSDERMA (14:06)
--- NOTE | 2024-01-31 14:32 | PC.NURSE ---
pt arrived to ED via EMS, bialteral crackles, increased work of effort breathing. per EMS initially O2 sat ~70% on RA, improved to 80% on NC and 95% on nonrebreather. respiratory at bedside to transition pt over to oxymask. pt a&ox4, 20G IV placed R AC, labs obtained, property assessment monitor applied. O2 89-92 on oxymask @ 15L, resp and provider aware. pt to CT, 1LNS running. delay in starting heparin drip/abx d/t pt difficulty stick, additional RNs attempting to establish 2nd IV access w lactic and blood cultures. provider aware.
[2024-01-31] MEDS: cefTRIAXone sodium 1 GM in 0.9 % Sodium Chloride 50 ML IV (14:40)
[2024-01-31] MEDS: Sodium Bicarbonate 8.4% 150 MEQ in Dextrose 5 % 850 ML 75 MEQ IV (14:44)
[2024-01-31 14:45] LABS: Hematocrit 35.2 % (37.0-47.0); Hemoglobin 11.4 g/dl (12.0-16.0); Mean Corpuscular HGB Conc 32.4 g/dl (31.0-35.0); Mean Corpuscular Hemoglobin 31.2 pg (27.0-33.0); Mean Corpuscular Volume 96.4 fL (80.0-98.0); Mean Platelet Volume 12.8 fL (9.4-12.3); NRBC Pct Auto 0.5 /100WBC (0.0-0.2); Platelet Count 293 X10*3/uL (160-400); Red Blood Count 3.65 X10*6/uL (4.20-5.50); Red Cell Distribution Width 15.4 % (11.0-16.0); White Blood Count 8.2 X10*3/uL (4.8-10.8)
[2024-01-31 14:51] LABS: Lactic Acid 1.8 mmol/L (0.5-2.0)
[2024-01-31] MEDS: Piperacillin Sodium/Tazobactam 3.375 GM in 0.9 % Sodium Chloride 50 ML IV (14:56)
[2024-01-31 15:12] LABS: Potassium Urine Random 51.4 mmol/L; Sodium Urine Random < 20.0 mmol/L
[2024-01-31] MEDS: Heparin Sodium,Porcine/1/2NS 25,000 UNIT/250 ML IV.SOLN 10 UNIT IVCONT (15:37)
[2024-01-31 15:47] LABS: Chloride Urine Random < 20.0 mmol/L
[2024-01-31] MEDS: Aspirin Enteric Coated 81 MG TABLET.DR PO (15:53)
[2024-01-31] MEDS: levoFLOXacin/D5W 750 MG/150 ML PIGGYBACK 100 MG IV (16:06)
--- NOTE | 2024-01-31 16:51 | PC.NURSE ---
discharge assessment done under wrong patient.
--- NOTE | 2024-01-31 16:57 | PC.NURSE ---
provider obtained additional central line access, heparin started per protocol, next PTT-HD due 2137. pt to NM with lucio Martell. verbal RN-RN report given to ICU, pt transported to ICU by LUCIO Martell.
[2024-01-31 17:34] LABS: Glucose, Whole Blood 162 mg/dL (60-115)
--- NOTE | 2024-01-31 18:19 | PM.EVENT ---
Event Note Date of Service: 01/31/24 Event Note: Nephrology consulted from ER re SUPRIYA on CKD . S/P NSTEMI. Acidotic. SUPRIYA due to tubular injury. Admitted to ICU. On NaHCO3 replacement. NO indication for renal replacement yet. Continue current supportive management for now. Shall closely follow
[2024-01-31 18:27] LABS: Anion Gap 21 (12-20); Blood Urea Nitrogen 103 mg/dL (9-16); Calcium 7.6 mg/dL (8.4-10.2); Carbon Dioxide 15 mmol/L (22-29); Chloride 107 mmol/L (96-108); Creatinine Clr Calc Pharmacy 8.7; Estimated Glomerular Filt Rate 7; Glucose Random 176 mg/dL (60-115); Potassium 4.2 mmol/L (3.3-5.1); Sodium 139 mmol/L (135-145)
--- NOTE | 2024-01-31 18:48 | PHA.MEDREC ---
Pharmacy Consult ? Medication Reconciliation Pharmacy has completed the medication reconciliation.
[2024-01-31 20:51] LABS: Glucose, Whole Blood 154 mg/dL (60-115)
--- NOTE | 2024-01-31 20:55 | PM.CCHP ---
History of Present Illness Date of Service: 01/31/24 Attending physician on admission: Vincenzo Gutierrez Chief Complaint: Dyspnea is a 68-year-old white female with history of type 2 diabetes, hyperlipidemia, asthma previous hospitalization for SUPRIYA secondary to pyelonephritis/sepsis who was brought in by ambulance for exertional dyspnea and shortness of breath x 4 days. She was found to be hypoxic by EMS with O2 saturation in the 70?s on room air. O2 saturation increased to the 90?s on 12L oxymask.? On arrival to the emergency room, the patient's blood pressure 167/92, heart rate 95, temp 96.0,? O2 sat 93% on 12L oxymask. Laboratory data significant for CO2 15, anion gap 24, BUN 109, creatinine 6.86, glucose 175, AST 57, ALT 96, troponin 15481.9, BNP 8451, D-Dimer 837.? ABG showed a pH of 7.37, pCO2 22, pO2 70, HC03 13.? UA positive for UTI.? Imaging: XR/XR chest 1V Patchy airspace consolidation in the right lung base, concerning for pneumonia Small bilateral pleural effusions, right greater than left. CT/CT abdomen pelvis wo IV con 1.? No hydronephrosis or obstructing calculus. 2.? Nonspecific stranding in the right paracolic gutter, suggesting inflammation of uncertain etiology/clinical significance. No definite adjacent bowel abnormality is seen to strongly suggest a colitis, and the appendix appears nondilated. 3.? Small right and trace left pleural effusions along with bibasilar opacities as noted on earlier chest x-ray. NM/NM pul perfusion Normal perfusion study. ED course: The patient was given 1LNS. Nitroglycerin .5 inch, Ceftriaxone 1g, Zosyn 3.375g, Aspirin 81mg. Cardiology was consulted. She was started on a heparin drip. Nephrology was consulted. She was started on a NaHCO3 drip. Review of Systems Review of Systems: Yes all other systems are reviewed and are negative Constitutional: Constitutional: Reports fatigue Cardiovascular: Cardiovascular: Reports dyspnea and Reports dyspnea on exertion Respiratory: Respiratory: Reports chest congestion, Reports dyspnea and Reports dyspnea on exertion Musculoskeletal: Musculoskeletal: Reports myalgias Endocrine: Endocrine: Reports fatigue PMFSH Past Medical History Medical History Hyperlipidemia Anemia No known health problems Family History Family History Mother Diabetes High blood pressure Father Heart rate problem Surgical History Surgical History Hx of cataract surgery Hx of rotator cuff surgery H/O arthroscopic knee surgery Social History Social History Household Members: Spouse Housing: House Do you presently have visiting nurse or other home services: No Alcohol intake: current Alcohol intake frequency: holidays/special occasions only Comment: RLQ Patient Tobacco Use Status: Former Tobacco user Smoked in Last 30 Days: No e-Cigarette/Vaping Use: Never Used Second Hand Smoke Exposure: Yes Use of substances other than those prescribed or required for medical reasons: No Substance Use Type: Marijuana Currently Displaying Signs/Symptoms of Drug Intoxication Withdrawal: No Have you been hit, kicked, punched, or otherwise hurt by someone within the past year? If so, by whom?: No Do you feel safe in your current relationship?: Yes Is there a partner from a previous relationship who is making you feel unsafe now?: No Are you made to feel afraid or neglected: No Advance Directives: No Advance Directives Information Provided: Yes Do you have thoughts of harming others: None Do you have a plan to hurt others: No Plan Recently lost weight without trying: No Nutrition Risks: Poor intake 0-25% >4 days Patient : No service: No Current occupational status: employed Current occupational exposures/hazards: No Cognitive needs: No Hearing needs: No Vision needs: No Meds Allergies Allergy/AdvReac Type Severity Reaction Status Date / Time egg [EGGS] Allergy Mild DIARRHEA Verified 01/31/24 11:58 eggs Allergy Unknown Stomach Verified 01/31/24 11:58 Upset metformin Allergy Unknown Diarrhea, Verified 01/31/24 11:58 upset stomach Active Medications: Current Medications Heparin Sodium (Porcine) (Heparin Sodium,Porcine 5,000 Unit/Ml Vial) 3,400 unit 40 unit/kg (3400 unit) IVPUSH PROTOCOL BOLUS PRN; Protocol PRN Reason: 40 unit/kg - Heparin Protocol Heparin Sodium (Porcine) (Heparin Sodium,Porcine 5,000 Unit/Ml Vial) 6,800 unit 80 unit/kg (6800 unit) IVPUSH PROTOCOL BOLUS PRN; Protocol PRN Reason: 80 unit/kg - Heparin Protocol Heparin Sodium/Sodium Chloride (Heparin Sodium,Porcine/1/2ns) 25,000 unit in 250 mls @ 0 mls/hr IVCONT .Q0M [facility]; Protocol Last Admin: 01/31/24 15:37 Dose: 11.7 units/kg/hr, 10 mls/hr Sodium Bicarbonate 150 meq/ (Dextrose) 1,000 mls @ 75 mls/hr IV .[id number] [facility] Last Admin: 01/31/24 14:44 Dose: 75 mls/hr Insulin Human Lispro (Insulin Lispro 100 Unit/Ml 3 Ml Vial) 0 unit SUBCUT QIDACHS [facility]; Protocol Last Admin: 01/31/24 17:35 Dose: Not Given Home Medications Medication Instructions Recorded Confirmed Last Taken Type pen needle, diabetic 32 gauge x 12/05/22 02/13/23 Unknown History 1/4 (BD Ultra-Fine Micro Pen Needle) nifedipine 60 mg tablet,extended 60 mg PO DAILY 10/22/23 01/31/24 01/26/24 History release insulin glargine 100 unit/mL (3 6 unit subcut BEDTIME 01/31/24 01/31/24 01/26/24 History mL) subcutaneous pen (Lantus Solostar U-100 Insulin) insulin lispro 100 unit/mL 1 sliding scale dose subcut QIDACHS 01/31/24 01/31/24 01/26/24 History subcutaneous pen (Humalog KwikPen (U-100) Insulin) Physical Exam Vital Signs: Vital Signs: Last Vital Signs Temp 97.4 F 01/31/24 20:00 Pulse 93 01/31/24 20:00 Resp 21 H 01/31/24 20:00 BP 167/87 H 01/31/24 20:00 Pulse Ox 92 01/31/24 20:00 O2 Del Method Oxymask 01/31/24 20:00 O2 Flow Rate 15 01/31/24 20:00 Oxygen Flow Rate 12 01/31/24 11:59 BMI result Body Mass Index 34.5 Const: General: no acute distress and alert Orientation/consciousness: patient oriented x3 (answering appropriately.) HEENT: Head: Yes normocephalic and Yes atraumatic General nose exam: Normal external nose present (Nares patent, septum midline, sinuses nontender bilaterally.) Mouth: Normal oral and palatal mucosa present (No thrush, tongue in midline, mucosa moist.) Throat: Yes other (No erythema, no exudate.) Neck: Neck: Yes supple (no thyromegaly, trachea midline.) Resp: Effort & Inspection: normal respiratory effort, able to speak in complete sentences and no respiratory distress Auscultation: rales Cardio: Jugular venous distension: no JVD Rate: regular rate Rhythm: regular rhythm Heart sounds: no gallops, no murmurs and no rubs Peripheral pulses: Peripheral pulses 2+ throughout GI: Palpation (GI): Soft to palpation (nondistended.) and nontender Neuro: General: patient oriented x3 (answering appropriately.) Extrem: General: Yes full ROM, Yes capillary refill normal and Yes no clubbing, cyanosis or edema Psych: Affect: normal affect Attitude: cooperative Results Labs 02/01/24 04:00 02/01/24 04:00 Labs: Laboratory Results - last 24 hr 01/31/24 01/31/24 01/31/24 12:19 13:08 13:18 MCV 91.9 MCH 31.0 MCHC 33.8 RDW 15.1 Plt Count 295 MPV 12.4 H Immature Gran % (Auto) 0.4 Neut % (Auto) 86.0 H Lymph % (Auto) 8.3 L [place] % (Auto) 3.7 Eos % (Auto) 1.3 Baso % (Auto) 0.3 Lymph # (Auto) 0.8 L [place] # (Auto) 0.4 Eos # (Auto) 0.1 Baso # (Auto) 0.0 Abs Immat Gran (auto) 0.04 H Absolute Neuts (auto) 8.1 Absolute Nucleated RBC 0.050 H Nucleated RBC % (auto) 0.5 H PT 12.4 INR 1.0 APTT 27.1 D-Dimer High Sensitivty 837 O2 Saturation 91.0 ABG pH at Pt Temp 7.37 ABG pCO2 at Pt Temp 22 L ABG pO2 at Pt Temp 70 L ABG HCO3 13 L ABG Base Excess (Actual) -9.9 Anion Gap 24 H Estim Creat Clear Calc 7.9 Estimated GFR 6 POC Glucose Random Glucose 175 H Lactic Acid Calcium 8.5 Total Bilirubin 0.5 Direct Bilirubin 0.2 AST 57 H ALT 96 H Alkaline Phosphatase 49 Troponin I High Sens 01163.9 H* B-Natriuretic Peptide 8451 H Total Protein 7.0 Albumin 3.3 L Lipase 20 Urine Color Yellow Urine Appearance Clear Urine pH 7.5 Ur Specific [place] 1.020 Urine Protein >=1000 (4+) H Urine Glucose (UA) 100 H Urine Ketones Trace Urine Blood Small (1+) H Urine Nitrite Negative Ur Leukocyte Esterase Trace H Urine RBC 11-20 H Urine WBC 11-20 H Ur Squamous Epith Cells 0-2 Urine Bacteria 1+ Hyaline Casts 0-2 Ur Random Sodium < 20.0 Ur Random Potassium 51.4 Ur Random Chloride < 20.0 Influenza Type A (PCR) NEGATIVE Influenza Type B (PCR) NEGATIVE RSV RNA Qual (PCR) NEGATIVE SARS-CoV-2 RNA (RT-PCR) NEGATIVE 01/31/24 01/31/24 01/31/24 14:33 17:26 18:02 MCV 96.4 MCH 31.2 MCHC 32.4 RDW 15.4 Plt Count 293 MPV 12.8 H Immature Gran % (Auto) Neut % (Auto) Lymph % (Auto) [place] % (Auto) Eos % (Auto) Baso % (Auto) Lymph # (Auto) [place] # (Auto) Eos # (Auto) Baso # (Auto) Abs Immat Gran (auto) Absolute Neuts (auto) Absolute Nucleated RBC 0.040 H Nucleated RBC % (auto) 0.5 H PT INR APTT D-Dimer High Sensitivty O2 Saturation ABG pH at Pt Temp ABG pCO2 at Pt Temp ABG pO2 at Pt Temp ABG HCO3 ABG Base Excess (Actual) Anion Gap 21 H Estim Creat Clear Calc 8.7 Estimated GFR 7 POC Glucose 162 H Random Glucose 176 H Lactic Acid 1.8 Calcium 7.6 L D Total Bilirubin Direct Bilirubin AST ALT Alkaline Phosphatase Troponin I High Sens B-Natriuretic Peptide Total Protein Albumin Lipase Urine Color Urine Appearance Urine pH Ur Specific [place] Urine Protein Urine Glucose (UA) Urine Ketones Urine Blood Urine Nitrite Ur Leukocyte Esterase Urine RBC Urine WBC Ur Squamous Epith Cells Urine Bacteria Hyaline Casts Ur Random Sodium Ur Random Potassium Ur Random Chloride Influenza Type A (PCR) Influenza Type B (PCR) RSV RNA Qual (PCR) SARS-CoV-2 RNA (RT-PCR) 01/31/24 20:48 MCV MCH MCHC RDW Plt Count MPV Immature Gran % (Auto) Neut % (Auto) Lymph % (Auto) [place] % (Auto) Eos % (Auto) Baso % (Auto) Lymph # (Auto) [place] # (Auto) Eos # (Auto) Baso # (Auto) Abs Immat Gran (auto) Absolute Neuts (auto) Absolute Nucleated RBC Nucleated RBC % (auto) PT INR APTT D-Dimer High Sensitivty O2 Saturation ABG pH at Pt Temp ABG pCO2 at Pt Temp ABG pO2 at Pt Temp ABG HCO3 ABG Base Excess (Actual) Anion Gap Estim Creat Clear Calc Estimated GFR POC Glucose 154 H Random Glucose Lactic Acid Calcium Total Bilirubin Direct Bilirubin AST ALT Alkaline Phosphatase Troponin I High Sens B-Natriuretic Peptide Total Protein Albumin Lipase Urine Color Urine Appearance Urine pH Ur Specific [place] Urine Protein Urine Glucose (UA) Urine Ketones Urine Blood Urine Nitrite Ur Leukocyte Esterase Urine RBC Urine WBC Ur Squamous Epith Cells Urine Bacteria Hyaline Casts Ur Random Sodium Ur Random Potassium Ur Random Chloride Influenza Type A (PCR) Influenza Type B (PCR) RSV RNA Qual (PCR) SARS-CoV-2 RNA (RT-PCR) Imaging Radiologist's Impressions: Impressions Chest X-Ray 01/31/24 12:46 IMPRESSION: Patchy airspace consolidation in the right lung base, concerning for pneumonia Small bilateral pleural effusions, right greater than left. Abdomen/Pelvis CT 01/31/24 13:36 IMPRESSION: 1. No hydronephrosis or obstructing calculus. 2. Nonspecific stranding in the right paracolic gutter, suggesting inflammation of uncertain etiology/clinical significance. No definite adjacent bowel abnormality is seen to strongly suggest a colitis, and the appendix appears nondilated. 3. Small right and trace left pleural effusions along with bibasilar opacities as noted on earlier chest x-ray. Chest X-Ray 01/31/24 15:27 IMPRESSION: Bibasilar haziness worse in the right lower lobe suggestive of infiltrate/pneumonia. New right central venous catheter tip in proximal SVC. No pneumothorax. Pulmonary Perfusion Imaging 01/31/24 17:05 IMPRESSION: Normal perfusion study. Assessment and Plan (1) Pneumonia: Qualifiers: Laterality: right Lung location: unspecified part of lung Pneumonia type: due to unspecified organism Qualified Code(s): J18.9 - Pneumonia, unspecified organism Status: Acute (2) Non-ST elevation [place] (NSTEMI): Status: Acute (3) Severe sepsis: Status: Acute (4) SUPRIYA (acute kidney injury): Status: Acute (5) Urinary tract infection: Qualifiers: Hematuria presence: with hematuria Urinary tract infection type: site unspecified Qualified Code(s): N39.0 - Urinary tract infection, site not specified; R31.9 - Hematuria, unspecified Status: Inactive Plan 68-year-old female with history of DM2, HLD, asthma, SUPRIYA, pyelonephritis admitted with SUPRIYA, acidosis, NSTEMI. Plan Neuro: No acute issues. Cardiac: NSTEMI. On Heparin gtt. Appreciate input from Cardiology. Pulmonary: Underlying asthma. Hypoxia with elevated D-dimer. No CT angio due to SUPRIYA. VQ scan normal. Titrate off supplemental oxygen as able. Renal: SUPRIYA. Metabolic acidosis. NaHCO3 drip. Monitor renal indices and I/O. Appreciate input from Nephrology.? Endo: No acute issues. SS insulin per protocol. GI: No acute issues.? ID: Severe sepsis likely from UTI/pneumonia. No septic shock. Received broad-spectrum antibiotics in ED. Levaquin on arrival to ICU.? Heme/Onc: No acute issues. Underlying anemia. Psych:? No acute issues. Miscellaneous:? No acute issues. Prophylaxis:? On cont IV heparin.? Diet: Diabetic Total time managing care of this patient today: 60 minutes.
[2024-01-31 21:39] LABS: PTT Heparin Drip 43.4 SEC (53-77.9)
[2024-01-31] MEDS: Melatonin 3 MG TABLET PO (21:48)
[2024-01-31] MEDS: Heparin Sodium,Porcine 5,000 UNIT/ML VIAL 3400 UNIT IVPUSH (21:48)
[2024-01-31 22:24] LABS: Troponin-I High Sensitivity 12058.5 ng/L (<3.5-17.0)
[2024-02-01] VITALS (13 sets, daily range): BP systolic 131–164; BP diastolic 68–84; PULSE 79–85; RESP 16–20; TEMP 36.3–36.4; O2SAT 90–97; BMI 35.3
--- NOTE | 2024-02-01 | ECG_ITS ---
Test Reason : shoulder pain Blood Pressure : / mmHG Vent. Rate : 083 BPM Atrial Rate : 083 BPM P-R Int : 158 ms QRS Dur : 096 ms QT Int : 410 ms P-R-T Axes : 050 -11 166 degrees QTc Int : 481 ms Sinus rhythm with Premature supraventricular complexes Minimal voltage criteria for LVH, may be normal variant ( [employer] product ) Anterior infarct (cited on or before 31-JAN-2024) ST & T wave abnormality, consider lateral ischemia Abnormal ECG When compared with ECG of 31-JAN-2024 12:17, Premature supraventricular complexes are now Present T wave inversion more evident in Lateral leads Referred By: Michelle Dutton Electronically Signed By:ABEBE PALOMINO
[2024-02-01] MEDS: Sodium Bicarbonate 8.4% 150 MEQ in Dextrose 5 % 850 ML 75 MEQ IV (03:41)
[2024-02-01 04:05] LABS: VBG Base Excess -3.4 mmol/L; VBG HCO3 20 mmol/L (22-26); VBG pCO2 31 mmHg; VBG pH 7.41 (7.32-7.43); VBG pO2 40 mmHg
[2024-02-01 04:08] LABS: MANUAL DIFF FLAG NO
[2024-02-01 04:10] LABS: Basophils Percent Auto 0.4 % (0-2); Eosinophils Absolute Auto 0.4 X10*3/uL (0.0-0.4); Eosinophils Percent Auto 4.8 % (0-4); Hemoglobin 8.6 g/dl (12.0-16.0); Imm Gran Abs Auto 0.04 X10*3/uL (0.00-0.03); Imm Gran Pct Auto 0.5 % (0.0-0.4); Lymphocytes Absolute Auto 0.9 X10*3/uL (1.2-4.9); Lymphocytes Percent Auto 12.1 % (20-40); Mean Corpuscular HGB Conc 34.4 g/dl (31.0-35.0); Mean Corpuscular Hemoglobin 31.6 pg (27.0-33.0); Mean Corpuscular Volume 91.9 fL (80.0-98.0); Mean Platelet Volume 12.5 fL (9.4-12.3); Monocytes Absolute Auto 0.3 X10*3/uL (0.1-1.2); Monocytes Percent Auto 4.6 % (2-11); NRBC Pct Auto 0.5 /100WBC (0.0-0.2); Neutrophils Absolute Auto 5.8 x10*3/uL (2.0-8.3); Neutrophils Percent Auto 77.6 % (45-73); Platelet Count 241 X10*3/uL (160-400); Red Blood Count 2.72 X10*6/uL (4.20-5.50); Red Cell Distribution Width 14.6 % (11.0-16.0); White Blood Count 7.5 X10*3/uL (4.8-10.8)
[2024-02-01 04:17] LABS: INTERNATIONAL NORM RATIO 1.2 (0.9-1.1); Prothrombin Time 14.7 SEC (11.1-13.3)
[2024-02-01 04:24] LABS: Alanine Aminotransferase 64 U/L (0-31); Albumin Level 2.6 g/dL (3.5-5.0); Alkaline Phosphatase 36 U/L (39-117); Anion Gap 17 (12-20); Aspartate Amino Transferase 36 U/L (5-31); Bilirubin Total 0.3 mg/dL (0.0-1.0); Blood Urea Nitrogen 101 mg/dL (9-16); Calcium 7.5 mg/dL (8.4-10.2); Carbon Dioxide 20 mmol/L (22-29); Chloride 107 mmol/L (96-108); Creatinine Clr Calc Pharmacy 8.8; Estimated Glomerular Filt Rate 7; Glucose Random 143 mg/dL (60-115); Magnesium 2.3 mg/dL (1.6-2.6); Phosphorus 6.7 mg/dL (2.7-4.5); Sodium 140 mmol/L (135-145); Total Protein 5.2 g/dL (6.5-8.0)
[2024-02-01 04:30] LABS: Venous Blood Gas Refer to POC result
[2024-02-01] MEDS: Albumin Human 25 % 100 ML IV ×2 (05:23→06:26)
[2024-02-01] MEDS: Nitroglycerin 2 % Oint 1 GM Packet 0.5 INCH TRANSDERMA (06:40)
--- NOTE | 2024-02-01 06:46 | PC.NURSE ---
Patient with complaint of left upper chest pain, region of clavicle rating a 8/10. [employer] notified and EKG was performed. Patient with no numbness or tingling, pain is non-radiating, no increased shortness of breath. Nitro paste applied per order, patient's pain is now a 9/10.
[2024-02-01] MEDS: fentaNYL citrate/PF 100 MCG/2 ML VIAL 25 MCG IVPUSH (07:09)
[2024-02-01] MEDS: Morphine Sulfate 2 MG/ML CARTRIDGE IVPUSH (07:55)
[2024-02-01 07:59] LABS: Glucose, Whole Blood 164 mg/dL (60-115)
[2024-02-01] MEDS: Insulin Lispro 100 UNIT/ML 3 ML VIAL SUBCUT (08:08)
--- NOTE | 2024-02-01 08:35 | ECG_ITS ---
Test Reason : chest pain Blood Pressure : / mmHG Vent. Rate : 082 BPM Atrial Rate : 082 BPM P-R Int : 164 ms QRS Dur : 098 ms QT Int : 432 ms P-R-T Axes : 032 -15 168 degrees QTc Int : 504 ms Normal sinus rhythm Cannot rule out Anterior infarct (cited on or before 31-JAN-2024) Marked ST abnormality, possible lateral subendocardial injury Abnormal ECG When compared with ECG of 01-FEB-2024 06:13, Premature supraventricular complexes are no longer Present Referred By: Vincenzo Gutierrez Electronically Signed By:Quentin Moody
[2024-02-01] MEDS: fentaNYL citrate/PF 100 MCG/2 ML VIAL 50 MCG IVPUSH (09:24)
--- NOTE | 2024-02-01 10:09 | PM.CNCAR ---
History of Present Illness History of Present Illness Date of Service: 02/01/24 Chief complaint: Acute hypoxic respiratory failure, SUPRIYA Narrative: This is a cardiology consultation regarding non ST-elevation myocardial infarction. Initially received a call from ER physician as today and recommendation was to send her to [facility] or [place] ICU but in any case, it seems that she was actually admitted here. Today, I have been asked to see her in consultation. Patient states that she has not been feeling well for the last several days. She has been having complaints of vomiting and not able to keep anything down. She did not have any clear-cut chest pains or other cardiac type symptoms. Any case, labs were checked and she was acute renal failure. Additionally, troponin was more than 10,000. Subsequently, sent to the ICU for admission. She is on 15 L of oxygen and satting about 90%. To me she is denying any chest pain but according to the nurse as well as human performance professor, she has had left-sided chest discomfort off and on for the last several hours. Repeat troponins were higher than the initial levels. Hence we are consulted to see her. She denies any prior history of coronary disease or in fact any cardiac issues. Currently, she states that she still feels nauseous and wants to vomit while I am in the room. However, not having chest pain. In the H and P, there is also mention of shortness of breath being the presenting complaint but to me, she repeatedly states that she came mainly because she could not keep anything down and she was just vomiting a lot. In the ER note, there is also mention of upper respiratory symptoms, coughing, body aches, diarrhea among others. Review of Systems Review of Systems: Yes all other systems are reviewed and are negative Constitutional: Constitutional: Reports as per HPI, Reports no additional constitutional complaints, Reports fatigue, Reports lethargy and Reports weakness Eyes: Eyes: Reports as per HPI and Denies no additional eye complaints ENT: Denies system reviewed and no additional complaints, except as documented and Reports as per HPI Cardiovascular: Cardiovascular: Reports as per HPI, Reports no additional cardiovascular complaints, Denies acrocyanosis, Denies cool extremities, Denies chest pain, Denies leg edema, Denies lightheadedness, Denies palpitations and Reports dyspnea Respiratory: Respiratory: Reports as per HPI, Denies no additional respiratory complaints and Reports dyspnea Gastrointestinal: Gastrointestinal: Reports as per HPI, Denies no additional gastrointestinal complaints, Reports nausea and Reports vomiting Genitourinary: Genitourinary: Reports as per HPI Musculoskeletal: Musculoskeletal: Reports no additional musculoskeletal complaints and Reports as per HPI Integumentary/Breasts: Skin/Breast: Reports system reviewed and no additional complaints, except as docu Neurologic: Reports system reviewed and no additional complaints, except as documented, Reports as per HPI and Reports weakness Psychiatric: Psychiatric: Reports no additional psychiatric complaints and Reports as per HPI Endocrine: Endocrine: Reports no additional endocrine complaints, Reports as per HPI, Reports fatigue and Denies palpitations Hematologic/Lymphatic: Hematologic/Lymphatic: Reports no additional hematologic/lymphatic complaints and Reports as per HPI Allergic/Immunologic: Allergic/Immunologic: Reports no additional allergic/immunologic complaints and Reports as per HPI PMFSH Past Medical History Medical History Hyperlipidemia Anemia No known health problems Family History Family History Mother Diabetes High blood pressure Father Heart rate problem Surgical History Surgical History Hx of cataract surgery Hx of rotator cuff surgery H/O arthroscopic knee surgery Social History Social History Household Members: Spouse Housing: House Do you presently have visiting nurse or other home services: No Alcohol intake: current Alcohol intake frequency: holidays/special occasions only Comment: RLQ Patient Tobacco Use Status: Former Tobacco user Smoked in Last 30 Days: No e-Cigarette/Vaping Use: Never Used Second Hand Smoke Exposure: Yes Use of substances other than those prescribed or required for medical reasons: No Substance Use Type: Marijuana Currently Displaying Signs/Symptoms of Drug Intoxication Withdrawal: No Have you been hit, kicked, punched, or otherwise hurt by someone within the past year? If so, by whom?: No Do you feel safe in your current relationship?: Yes Is there a partner from a previous relationship who is making you feel unsafe now?: No Are you made to feel afraid or neglected: No Advance Directives: No Advance Directives Information Provided: Yes Do you have thoughts of harming others: None Do you have a plan to hurt others: No Plan Recently lost weight without trying: No Nutrition Risks: Poor intake 0-25% >4 days Patient : No service: No Current occupational status: employed Current occupational exposures/hazards: No Cognitive needs: No Hearing needs: No Vision needs: No Meds Allergies Allergy/AdvReac Type Severity Reaction Status Date / Time egg [EGGS] Allergy Mild DIARRHEA Verified 01/31/24 11:58 eggs Allergy Unknown Stomach Verified 01/31/24 11:58 Upset metformin Allergy Unknown Diarrhea, Verified 01/31/24 11:58 upset stomach Active Medications: Current Medications Heparin Sodium (Porcine) (Heparin Sodium,Porcine 5,000 Unit/Ml Vial) 3,400 unit 40 unit/kg (3400 unit) IVPUSH PROTOCOL BOLUS PRN; Protocol PRN Reason: 40 unit/kg - Heparin Protocol Last Admin: 01/31/24 21:48 Dose: 3,400 unit Heparin Sodium (Porcine) (Heparin Sodium,Porcine 5,000 Unit/Ml Vial) 6,800 unit 80 unit/kg (6800 unit) IVPUSH PROTOCOL BOLUS PRN; Protocol PRN Reason: 80 unit/kg - Heparin Protocol Heparin Sodium/Sodium Chloride (Heparin Sodium,Porcine/1/2ns) 25,000 unit in 250 mls @ 0 mls/hr IVCONT .Q0M [facility]; Protocol Last Titration: 02/01/24 05:32 Dose: 10.69 units/kg/hr, 9.14 mls/hr Sodium Bicarbonate 150 meq/ (Dextrose) 1,000 mls @ 75 mls/hr IV .[id number] [facility] Last Admin: 02/01/24 03:41 Dose: 75 mls/hr Insulin Human Lispro (Insulin Lispro 100 Unit/Ml 3 Ml Vial) 0 unit SUBCUT QIDACHS [facility]; Protocol Last Admin: 02/01/24 08:08 Dose: 2 unit Ondansetron HCl (Ondansetron Hcl 4 Mg/2 Ml Vial) 4 mg IVPUSH Q4H PRN PRN Reason: Nausea and Vomiting Home Medications Medication Instructions Recorded Confirmed Last Taken Type pen needle, diabetic 32 gauge x 12/05/22 02/13/23 Unknown History 11/13 (BD Ultra-Fine Micro Pen Needle) nifedipine 60 mg tablet,extended 60 mg PO DAILY 10/22/23 01/31/24 01/26/24 History release insulin glargine 100 unit/mL (3 6 unit subcut BEDTIME 01/31/24 01/31/24 01/26/24 History mL) subcutaneous pen (Lantus Solostar U-100 Insulin) insulin lispro 100 unit/mL 1 sliding scale dose subcut QIDACHS 01/31/24 01/31/24 01/26/24 History subcutaneous pen (Humalog KwikPen (U-100) Insulin) Physical Exam Vital Signs: Vital Signs: Last Vital Signs Temp 97.3 F 02/01/24 04:00 Pulse 85 02/01/24 10:00 Resp 19 02/01/24 10:00 BP 131/68 02/01/24 10:00 Pulse Ox 91 L 02/01/24 10:00 O2 Del Method Oxymask 02/01/24 10:00 O2 Flow Rate 15 02/01/24 10:00 Oxygen Flow Rate 12 01/31/24 11:59 BMI result Body Mass Index 35.3 Const: General: comfortable, no acute distress, ill appearing and tired appearing Orientation/consciousness: patient oriented x3 HEENT: Other: Unremarkable Head: Yes normal to inspection Neck: Neck: Yes normal visual inspection Chest: Chest palpation & inspection: normal inspection of the chest Resp: Auscultation: crackles Cardio: Palpation: normal PMI Heart sounds: S1 normal heart sound present, S2 normal heart sound present, no gallops, no murmurs and no rubs GI: Palpation (GI): Soft to palpation Back/Spine/Pelvis: Other: unremarkable Skin: General skin exam: no rashes or lesions noted Neuro: General: patient oriented x3 Extrem: General: Yes normal to inspection Psych: Mental Status: mental status grossly normal Objective Labs and Meds 02/01/24 04:00 02/01/24 04:00 Lab results: Laboratory Results - last 24 hr 01/31/24 01/31/24 01/31/24 12:19 13:08 13:18 WBC 9.4 RBC 3.45 L Hgb 10.7 L Hct 31.7 L MCV 91.9 MCH 31.0 MCHC 33.8 RDW 15.1 Plt Count 295 MPV 12.4 H Immature Gran % (Auto) 0.4 Neut % (Auto) 86.0 H Lymph % (Auto) 8.3 L [place] % (Auto) 3.7 Eos % (Auto) 1.3 Baso % (Auto) 0.3 Lymph # (Auto) 0.8 L [place] # (Auto) 0.4 Eos # (Auto) 0.1 Baso # (Auto) 0.0 Abs Immat Gran (auto) 0.04 H Absolute Neuts (auto) 8.1 Absolute Nucleated RBC 0.050 H Nucleated RBC % (auto) 0.5 H PT 12.4 INR 1.0 APTT 27.1 aPTT Heparin Protocol D-Dimer High Sensitivty 837 O2 Saturation 91.0 ABG pH at Pt Temp 7.37 ABG pCO2 at Pt Temp 22 L ABG pO2 at Pt Temp 70 L ABG HCO3 13 L ABG Base Excess (Actual) -9.9 VBG pH VBG pCO2 VBG pO2 VBG HCO3 VBG O2 Saturation VBG Base Excess Sodium 138 Potassium 4.9 Chloride 104 Carbon Dioxide 15 L Anion Gap 24 H BUN 109 H Creatinine 6.86 H* Estim Creat Clear Calc 7.9 Estimated GFR 6 POC Glucose Random Glucose 175 H Lactic Acid Calcium 8.5 Phosphorus Magnesium Total Bilirubin 0.5 Direct Bilirubin 0.2 AST 57 H ALT 96 H Alkaline Phosphatase 49 Troponin I High Sens 90612.9 H* B-Natriuretic Peptide 8451 H Total Protein 7.0 Albumin 3.3 L Lipase 20 Urine Color Yellow Urine Appearance Clear Urine pH 7.5 Ur Specific [place] 1.020 Urine Protein >=1000 (4+) H Urine Glucose (UA) 100 H Urine Ketones Trace Urine Blood Small (1+) H Urine Nitrite Negative Ur Leukocyte Esterase Trace H Urine RBC 11-20 H Urine WBC 11-20 H Ur Squamous Epith Cells 0-2 Urine Bacteria 1+ Hyaline Casts 0-2 Ur Random Sodium < 20.0 Ur Random Potassium 51.4 Ur Random Chloride < 20.0 Influenza Type A (PCR) NEGATIVE Influenza Type B (PCR) NEGATIVE RSV RNA Qual (PCR) NEGATIVE SARS-CoV-2 RNA (RT-PCR) NEGATIVE 01/31/24 01/31/24 01/31/24 14:33 17:26 18:02 WBC 8.2 RBC 3.65 L Hgb 11.4 L Hct 35.2 L MCV 96.4 MCH 31.2 MCHC 32.4 RDW 15.4 Plt Count 293 MPV 12.8 H Immature Gran % (Auto) Neut % (Auto) Lymph % (Auto) [place] % (Auto) Eos % (Auto) Baso % (Auto) Lymph # (Auto) [place] # (Auto) Eos # (Auto) Baso # (Auto) Abs Immat Gran (auto) Absolute Neuts (auto) Absolute Nucleated RBC 0.040 H Nucleated RBC % (auto) 0.5 H PT INR APTT aPTT Heparin Protocol D-Dimer High Sensitivty O2 Saturation ABG pH at Pt Temp ABG pCO2 at Pt Temp ABG pO2 at Pt Temp ABG HCO3 ABG Base Excess (Actual) VBG pH VBG pCO2 VBG pO2 VBG HCO3 VBG O2 Saturation VBG Base Excess Sodium 139 Potassium 4.2 Chloride 107 Carbon Dioxide 15 L Anion Gap 21 H BUN 103 H Creatinine 6.27 H* Estim Creat Clear Calc 8.7 Estimated GFR 7 POC Glucose 162 H Random Glucose 176 H Lactic Acid 1.8 Calcium 7.6 L D Phosphorus Magnesium Total Bilirubin Direct Bilirubin AST ALT Alkaline Phosphatase Troponin I High Sens B-Natriuretic Peptide Total Protein Albumin Lipase Urine Color Urine Appearance Urine pH Ur Specific [place] Urine Protein Urine Glucose (UA) Urine Ketones Urine Blood Urine Nitrite Ur Leukocyte Esterase Urine RBC Urine WBC Ur Squamous Epith Cells Urine Bacteria Hyaline Casts Ur Random Sodium Ur Random Potassium Ur Random Chloride Influenza Type A (PCR) Influenza Type B (PCR) RSV RNA Qual (PCR) SARS-CoV-2 RNA (RT-PCR) 01/31/24 01/31/24 02/01/24 20:48 21:23 03:58 WBC RBC Hgb Hct MCV MCH MCHC RDW Plt Count MPV Immature Gran % (Auto) Neut % (Auto) Lymph % (Auto) [place] % (Auto) Eos % (Auto) Baso % (Auto) Lymph # (Auto) [place] # (Auto) Eos # (Auto) Baso # (Auto) Abs Immat Gran (auto) Absolute Neuts (auto) Absolute Nucleated RBC Nucleated RBC % (auto) PT INR APTT aPTT Heparin Protocol 43.4 L D-Dimer High Sensitivty O2 Saturation ABG pH at Pt Temp ABG pCO2 at Pt Temp ABG pO2 at Pt Temp ABG HCO3 ABG Base Excess (Actual) VBG pH 7.41 VBG pCO2 31 VBG pO2 40 VBG HCO3 20 L VBG O2 Saturation 63.0 VBG Base Excess -3.4 Sodium Potassium Chloride Carbon Dioxide Anion Gap BUN Creatinine Estim Creat Clear Calc Estimated GFR POC Glucose 154 H Random Glucose Lactic Acid Calcium Phosphorus Magnesium Total Bilirubin Direct Bilirubin AST ALT Alkaline Phosphatase Troponin I High Sens 54425.5 H* B-Natriuretic Peptide Total Protein Albumin Lipase Urine Color Urine Appearance Urine pH Ur Specific [place] Urine Protein Urine Glucose (UA) Urine Ketones Urine Blood Urine Nitrite Ur Leukocyte Esterase Urine RBC Urine WBC Ur Squamous Epith Cells Urine Bacteria Hyaline Casts Ur Random Sodium Ur Random Potassium Ur Random Chloride Influenza Type A (PCR) Influenza Type B (PCR) RSV RNA Qual (PCR) SARS-CoV-2 RNA (RT-PCR) 02/01/24 02/01/24 02/01/24 04:00 04:00 04:00 WBC 7.5 Cancelled RBC 2.72 L D Cancelled Hgb 8.6 L D Hct MCV MCH MCHC RDW Plt Count MPV Immature Gran % (Auto) Neut % (Auto) Lymph % (Auto) [place] % (Auto) Eos % (Auto) Baso % (Auto) Lymph # (Auto) [place] # (Auto) Eos # (Auto) Baso # (Auto) Abs Immat Gran (auto) Absolute Neuts (auto) Absolute Nucleated RBC Nucleated RBC % (auto) PT INR APTT aPTT Heparin Protocol D-Dimer High Sensitivty O2 Saturation ABG pH at Pt Temp ABG pCO2 at Pt Temp ABG pO2 at Pt Temp ABG HCO3 ABG Base Excess (Actual) VBG pH VBG pCO2 VBG pO2 VBG HCO3 VBG O2 Saturation VBG Base Excess Sodium Potassium Chloride Carbon Dioxide Anion Gap BUN Creatinine Estim Creat Clear Calc Estimated GFR POC Glucose Random Glucose Lactic Acid Calcium Phosphorus Magnesium Total Bilirubin Direct Bilirubin AST ALT Alkaline Phosphatase Troponin I High Sens B-Natriuretic Peptide Total Protein Albumin Lipase Urine Color Urine Appearance Urine pH Ur Specific [place] Urine Protein Urine Glucose (UA) Urine Ketones Urine Blood Urine Nitrite Ur Leukocyte Esterase Urine RBC Urine WBC Ur Squamous Epith Cells Urine Bacteria Hyaline Casts Ur Random Sodium Ur Random Potassium Ur Random Chloride Influenza Type A (PCR) Influenza Type B (PCR) RSV RNA Qual (PCR) SARS-CoV-2 RNA (RT-PCR) 02/01/24 02/01/24 02/01/24 04:00 04:00 04:00 WBC RBC Hgb Cancelled Hct 25.0 L D Cancelled MCV 91.9 Cancelled MCH 31.6 MCHC RDW Plt Count MPV Immature Gran % (Auto) Neut % (Auto) Lymph % (Auto) [place] % (Auto) Eos % (Auto) Baso % (Auto) Lymph # (Auto) [place] # (Auto) Eos # (Auto) Baso # (Auto) Abs Immat Gran (auto) Absolute Neuts (auto) Absolute Nucleated RBC Nucleated RBC % (auto) PT INR APTT aPTT Heparin Protocol D-Dimer High Sensitivty O2 Saturation ABG pH at Pt Temp ABG pCO2 at Pt Temp ABG pO2 at Pt Temp ABG HCO3 ABG Base Excess (Actual) VBG pH VBG pCO2 VBG pO2 VBG HCO3 VBG O2 Saturation VBG Base Excess Sodium Potassium Chloride Carbon Dioxide Anion Gap BUN Creatinine Estim Creat Clear Calc Estimated GFR POC Glucose Random Glucose Lactic Acid Calcium Phosphorus Magnesium Total Bilirubin Direct Bilirubin AST ALT Alkaline Phosphatase Troponin I High Sens B-Natriuretic Peptide Total Protein Albumin Lipase Urine Color Urine Appearance Urine pH Ur Specific [place] Urine Protein Urine Glucose (UA) Urine Ketones Urine Blood Urine Nitrite Ur Leukocyte Esterase Urine RBC Urine WBC Ur Squamous Epith Cells Urine Bacteria Hyaline Casts Ur Random Sodium Ur Random Potassium Ur Random Chloride Influenza Type A (PCR) Influenza Type B (PCR) RSV RNA Qual (PCR) SARS-CoV-2 RNA (RT-PCR) 02/01/24 02/01/24 02/01/24 04:00 04:00 04:00 WBC RBC Hgb Hct MCV MCH Cancelled MCHC 34.4 Cancelled RDW 14.6 Cancelled Plt Count 241 MPV Immature Gran % (Auto) Neut % (Auto) Lymph % (Auto) [place] % (Auto) Eos % (Auto) Baso % (Auto) Lymph # (Auto) [place] # (Auto) Eos # (Auto) Baso # (Auto) Abs Immat Gran (auto) Absolute Neuts (auto) Absolute Nucleated RBC Nucleated RBC % (auto) PT INR APTT aPTT Heparin Protocol D-Dimer High Sensitivty O2 Saturation ABG pH at Pt Temp ABG pCO2 at Pt Temp ABG pO2 at Pt Temp ABG HCO3 ABG Base Excess (Actual) VBG pH VBG pCO2 VBG pO2 VBG HCO3 VBG O2 Saturation VBG Base Excess Sodium Potassium Chloride Carbon Dioxide Anion Gap BUN Creatinine Estim Creat Clear Calc Estimated GFR POC Glucose Random Glucose Lactic Acid Calcium Phosphorus Magnesium Total Bilirubin Direct Bilirubin AST ALT Alkaline Phosphatase Troponin I High Sens B-Natriuretic Peptide Total Protein Albumin Lipase Urine Color Urine Appearance Urine pH Ur Specific [place] Urine Protein Urine Glucose (UA) Urine Ketones Urine Blood Urine Nitrite Ur Leukocyte Esterase Urine RBC Urine WBC Ur Squamous Epith Cells Urine Bacteria Hyaline Casts Ur Random Sodium Ur Random Potassium Ur Random Chloride Influenza Type A (PCR) Influenza Type B (PCR) RSV RNA Qual (PCR) SARS-CoV-2 RNA (RT-PCR) 02/01/24 02/01/24 02/01/24 04:00 04:00 04:00 WBC RBC Hgb Hct MCV MCH MCHC RDW Plt Count Cancelled MPV 12.5 H Cancelled Immature Gran % (Auto) 0.5 H Neut % (Auto) 77.6 H Lymph % (Auto) 12.1 L [place] % (Auto) 4.6 Eos % (Auto) 4.8 H Baso % (Auto) 0.4 Lymph # (Auto) 0.9 L [place] # (Auto) 0.3 Eos # (Auto) 0.4 Baso # (Auto) 0.0 Abs Immat Gran (auto) 0.04 H Absolute Neuts (auto) 5.8 Absolute Nucleated RBC 0.040 H Cancelled Nucleated RBC % (auto) 0.5 H PT INR APTT aPTT Heparin Protocol D-Dimer High Sensitivty O2 Saturation ABG pH at Pt Temp ABG pCO2 at Pt Temp ABG pO2 at Pt Temp ABG HCO3 ABG Base Excess (Actual) VBG pH VBG pCO2 VBG pO2 VBG HCO3 VBG O2 Saturation VBG Base Excess Sodium Potassium Chloride Carbon Dioxide Anion Gap BUN Creatinine Estim Creat Clear Calc Estimated GFR POC Glucose Random Glucose Lactic Acid Calcium Phosphorus Magnesium Total Bilirubin Direct Bilirubin AST ALT Alkaline Phosphatase Troponin I High Sens B-Natriuretic Peptide Total Protein Albumin Lipase Urine Color Urine Appearance Urine pH Ur Specific [place] Urine Protein Urine Glucose (UA) Urine Ketones Urine Blood Urine Nitrite Ur Leukocyte Esterase Urine RBC Urine WBC Ur Squamous Epith Cells Urine Bacteria Hyaline Casts Ur Random Sodium Ur Random Potassium Ur Random Chloride Influenza Type A (PCR) Influenza Type B (PCR) RSV RNA Qual (PCR) SARS-CoV-2 RNA (RT-PCR) 02/01/24 02/01/24 04:00 07:55 WBC RBC Hgb Hct MCV MCH MCHC RDW Plt Count MPV Immature Gran % (Auto) Neut % (Auto) Lymph % (Auto) [place] % (Auto) Eos % (Auto) Baso % (Auto) Lymph # (Auto) [place] # (Auto) Eos # (Auto) Baso # (Auto) Abs Immat Gran (auto) Absolute Neuts (auto) Absolute Nucleated RBC Nucleated RBC % (auto) Cancelled PT 14.7 H INR 1.2 H APTT aPTT Heparin Protocol 94.0 H D D-Dimer High Sensitivty O2 Saturation ABG pH at Pt Temp ABG pCO2 at Pt Temp ABG pO2 at Pt Temp ABG HCO3 ABG Base Excess (Actual) VBG pH VBG pCO2 VBG pO2 VBG HCO3 VBG O2 Saturation VBG Base Excess Sodium 140 Potassium 4.0 Chloride 107 Carbon Dioxide 20 L Anion Gap 17 BUN 101 H Creatinine 6.20 H* Estim Creat Clear Calc 8.8 Estimated GFR 7 POC Glucose 164 H Random Glucose 143 H Lactic Acid Calcium 7.5 L Phosphorus 6.7 H Magnesium 2.3 Total Bilirubin 0.3 Direct Bilirubin AST 36 H ALT 64 H Alkaline Phosphatase 36 L Troponin I High Sens 49202.7 H* B-Natriuretic Peptide Total Protein 5.2 L Albumin 2.6 L Lipase Urine Color Urine Appearance Urine pH Ur Specific [place] Urine Protein Urine Glucose (UA) Urine Ketones Urine Blood Urine Nitrite Ur Leukocyte Esterase Urine RBC Urine WBC Ur Squamous Epith Cells Urine Bacteria Hyaline Casts Ur Random Sodium Ur Random Potassium Ur Random Chloride Influenza Type A (PCR) Influenza Type B (PCR) RSV RNA Qual (PCR) SARS-CoV-2 RNA (RT-PCR) ECG Interpretation: EKGs reviewed. Initial EKG, suggestion of LVH but no clear ischemia. Could not exclude old anterior infarct. T inversions in 1/aVL. In the subsequent EKGs, there is suggestion of ST depression in the lateral/anterolateral leads and more prominent than before. Imaging Radiologist's impression: Impressions Chest X-Ray 01/31/24 12:46 IMPRESSION: Patchy airspace consolidation in the right lung base, concerning for pneumonia Small bilateral pleural effusions, right greater than left. Abdomen/Pelvis CT 01/31/24 13:36 IMPRESSION: 1. No hydronephrosis or obstructing calculus. 2. Nonspecific stranding in the right paracolic gutter, suggesting inflammation of uncertain etiology/clinical significance. No definite adjacent bowel abnormality is seen to strongly suggest a colitis, and the appendix appears nondilated. 3. Small right and trace left pleural effusions along with bibasilar opacities as noted on earlier chest x-ray. Chest X-Ray 01/31/24 15:27 IMPRESSION: Bibasilar haziness worse in the right lower lobe suggestive of infiltrate/pneumonia. New right central venous catheter tip in proximal SVC. No pneumothorax. Pulmonary Perfusion Imaging 01/31/24 17:05 IMPRESSION: Normal perfusion study. Assessment and Plan (1) Non-ST elevation MD (NSTEMI): Status: Acute (2) SUPRIYA (acute kidney injury): Status: Acute (3) Acute hypoxic respiratory failure: Status: Acute Plan Labs reviewed. BUN is 101. Creatinine is 6.2. Baseline creatinine is in the 2s from 2022. In 2020, it has been in the 1s. Troponin levels are 12,631 followed by 12,058 followed by 14,000. EKG as discussed above shows possible old anterior infarct with some lateral anterolateral ischemia. Labs clearly show acute renal failure but she already has some baseline CKD. Chest x-ray reported as pneumonia but could be pulmonary edema. She is on 15 L of oxygen. Overall, presenting symptoms of vomiting leading to potentially dehydration acute renal failure and then secondary or type 2 myocardial infarction. Less likely type 1 MD but can not rule that out either. Discussed with Dr. Gutierrez and then I also discussed this with [facility] CCU attending Dr. Hurt. After reviewing all the data he recommended patient transferred to [facility] Medical ICU rather. Also discussed with the ICU fellow who eventually accepted the patient. Plan would be getting an echocardiogram, Nephrology consultation and probably Scott-Miguelina catheter for assessing if this is pneumonia versus pulmonary edema. If she is indeed having pulmonary edema, need to consider dialysis versus just diuretics. She has getting a bicarb drip and that can be stopped for this time. With regard to the NSTEMI itself, treat with IV heparin drip, aspirin, nitroglycerin. Clinically she is not having any active chest pain at this time. Once renal issues sorted out, then we will need to discuss ischemia workup. Total critical care time spent including assessment of this critically ill patient, discussion with human performance professor in [place], nursing, CCU in [facility], ICU in [facility], transfer center, documentation, coordination of care-75 minutes. Procedures Date of Service Date of Service: 02/01/24
[2024-02-01] MEDS: ondansetron HCL 4 MG/2 ML VIAL IVPUSH (10:10)
--- NOTE | 2024-02-01 10:39 | PM.CCPN ---
Subjective Subjective Date of Service: 02/01/24 Interval History: 68-year-old lady with underlying history of diabetes mellitus, hyperlipidemia admitted on 01/31/2024 with dyspnea slowly progressive over the last 4 days. On ER evaluation patient with significant hypoxia, acute renal failure, and elevated troponin but no significant ST changes. Patient was started heparin drip for NSTEMI. Empiric antibiotics for possible UTI, and bicarbonate drip and admitted to intensive care unit. Overnight with rising troponin recurrent left-sided chest pain requiring opioids for control. EKG with ischemic changes, but no overt ST elevation. Critical Care Time (minutes): 60 Physical Exam Vital Signs: Vital Signs: Last Vital Signs Temp 97.3 F 02/01/24 04:00 Pulse 85 02/01/24 10:00 Resp 19 02/01/24 10:00 BP 131/68 02/01/24 10:00 Pulse Ox 91 L 02/01/24 10:00 O2 Del Method Oxymask 02/01/24 10:00 O2 Flow Rate 15 02/01/24 10:00 Oxygen Flow Rate 12 01/31/24 11:59 BMI result Body Mass Index 35.3 Const: General: no acute distress, alert and awake Eyes: Sclerae: sclerae normal EOM: EOMs intact bilaterally Neck: Neck: Yes no lymphadenopathy, Yes trachea midline and Yes supple Resp: Effort & Inspection: tachypneic Auscultation: crackles (Bilateral) Cardio: Rate: regular rate Rhythm: regular rhythm Heart sounds: no gallops, no murmurs and no rubs GI: Palpation (GI): Soft to palpation and Other GI palpation findings present ( Nontender) Auscultation: normal bowel sounds Extrem: General: No clubbing, No cyanosis and Yes edema (Trace bilateral) Objective Data Labs 02/01/24 04:00 02/01/24 04:00 Labs: Laboratory Results - last 24 hr 01/31/24 01/31/24 01/31/24 12:19 13:08 13:18 WBC 9.4 RBC 3.45 L Hgb 10.7 L Hct 31.7 L MCV 91.9 MCH 31.0 MCHC 33.8 RDW 15.1 Plt Count 295 MPV 12.4 H Immature Gran % (Auto) 0.4 Neut % (Auto) 86.0 H Lymph % (Auto) 8.3 L [place] % (Auto) 3.7 Eos % (Auto) 1.3 Baso % (Auto) 0.3 Lymph # (Auto) 0.8 L [place] # (Auto) 0.4 Eos # (Auto) 0.1 Baso # (Auto) 0.0 Abs Immat Gran (auto) 0.04 H Absolute Neuts (auto) 8.1 Absolute Nucleated RBC 0.050 H Nucleated RBC % (auto) 0.5 H PT 12.4 INR 1.0 APTT 27.1 aPTT Heparin Protocol D-Dimer High Sensitivty 837 O2 Saturation 91.0 ABG pH at Pt Temp 7.37 ABG pCO2 at Pt Temp 22 L ABG pO2 at Pt Temp 70 L ABG HCO3 13 L ABG Base Excess (Actual) -9.9 VBG pH VBG pCO2 VBG pO2 VBG HCO3 VBG O2 Saturation VBG Base Excess Sodium 138 Potassium 4.9 Chloride 104 Carbon Dioxide 15 L Anion Gap 24 H BUN 109 H Creatinine 6.86 H* Estim Creat Clear Calc 7.9 Estimated GFR 6 POC Glucose Random Glucose 175 H Lactic Acid Calcium 8.5 Phosphorus Magnesium Total Bilirubin 0.5 Direct Bilirubin 0.2 AST 57 H ALT 96 H Alkaline Phosphatase 49 Troponin I High Sens 34173.9 H* B-Natriuretic Peptide 8451 H Total Protein 7.0 Albumin 3.3 L Lipase 20 Urine Color Yellow Urine Appearance Clear Urine pH 7.5 Ur Specific [place] 1.020 Urine Protein >=1000 (4+) H Urine Glucose (UA) 100 H Urine Ketones Trace Urine Blood Small (1+) H Urine Nitrite Negative Ur Leukocyte Esterase Trace H Urine RBC 11-20 H Urine WBC 11-20 H Ur Squamous Epith Cells 0-2 Urine Bacteria 1+ Hyaline Casts 0-2 Ur Random Sodium < 20.0 Ur Random Potassium 51.4 Ur Random Chloride < 20.0 Influenza Type A (PCR) NEGATIVE Influenza Type B (PCR) NEGATIVE RSV RNA Qual (PCR) NEGATIVE SARS-CoV-2 RNA (RT-PCR) NEGATIVE 01/31/24 01/31/24 01/31/24 14:33 17:26 18:02 WBC 8.2 RBC 3.65 L Hgb 11.4 L Hct 35.2 L MCV 96.4 MCH 31.2 MCHC 32.4 RDW 15.4 Plt Count 293 MPV 12.8 H Immature Gran % (Auto) Neut % (Auto) Lymph % (Auto) [place] % (Auto) Eos % (Auto) Baso % (Auto) Lymph # (Auto) [place] # (Auto) Eos # (Auto) Baso # (Auto) Abs Immat Gran (auto) Absolute Neuts (auto) Absolute Nucleated RBC 0.040 H Nucleated RBC % (auto) 0.5 H PT INR APTT aPTT Heparin Protocol D-Dimer High Sensitivty O2 Saturation ABG pH at Pt Temp ABG pCO2 at Pt Temp ABG pO2 at Pt Temp ABG HCO3 ABG Base Excess (Actual) VBG pH VBG pCO2 VBG pO2 VBG HCO3 VBG O2 Saturation VBG Base Excess Sodium 139 Potassium 4.2 Chloride 107 Carbon Dioxide 15 L Anion Gap 21 H BUN 103 H Creatinine 6.27 H* Estim Creat Clear Calc 8.7 Estimated GFR 7 POC Glucose 162 H Random Glucose 176 H Lactic Acid 1.8 Calcium 7.6 L D Phosphorus Magnesium Total Bilirubin Direct Bilirubin AST ALT Alkaline Phosphatase Troponin I High Sens B-Natriuretic Peptide Total Protein Albumin Lipase Urine Color Urine Appearance Urine pH Ur Specific [place] Urine Protein Urine Glucose (UA) Urine Ketones Urine Blood Urine Nitrite Ur Leukocyte Esterase Urine RBC Urine WBC Ur Squamous Epith Cells Urine Bacteria Hyaline Casts Ur Random Sodium Ur Random Potassium Ur Random Chloride Influenza Type A (PCR) Influenza Type B (PCR) RSV RNA Qual (PCR) SARS-CoV-2 RNA (RT-PCR) 01/31/24 01/31/24 02/01/24 20:48 21:23 03:58 WBC RBC Hgb Hct MCV MCH MCHC RDW Plt Count MPV Immature Gran % (Auto) Neut % (Auto) Lymph % (Auto) [place] % (Auto) Eos % (Auto) Baso % (Auto) Lymph # (Auto) [place] # (Auto) Eos # (Auto) Baso # (Auto) Abs Immat Gran (auto) Absolute Neuts (auto) Absolute Nucleated RBC Nucleated RBC % (auto) PT INR APTT aPTT Heparin Protocol 43.4 L D-Dimer High Sensitivty O2 Saturation ABG pH at Pt Temp ABG pCO2 at Pt Temp ABG pO2 at Pt Temp ABG HCO3 ABG Base Excess (Actual) VBG pH 7.41 VBG pCO2 31 VBG pO2 40 VBG HCO3 20 L VBG O2 Saturation 63.0 VBG Base Excess -3.4 Sodium Potassium Chloride Carbon Dioxide Anion Gap BUN Creatinine Estim Creat Clear Calc Estimated GFR POC Glucose 154 H Random Glucose Lactic Acid Calcium Phosphorus Magnesium Total Bilirubin Direct Bilirubin AST ALT Alkaline Phosphatase Troponin I High Sens 10628.5 H* B-Natriuretic Peptide Total Protein Albumin Lipase Urine Color Urine Appearance Urine pH Ur Specific [place] Urine Protein Urine Glucose (UA) Urine Ketones Urine Blood Urine Nitrite Ur Leukocyte Esterase Urine RBC Urine WBC Ur Squamous Epith Cells Urine Bacteria Hyaline Casts Ur Random Sodium Ur Random Potassium Ur Random Chloride Influenza Type A (PCR) Influenza Type B (PCR) RSV RNA Qual (PCR) SARS-CoV-2 RNA (RT-PCR) 02/01/24 02/01/24 02/01/24 04:00 04:00 04:00 WBC 7.5 Cancelled RBC 2.72 L D Cancelled Hgb 8.6 L D Hct MCV MCH MCHC RDW Plt Count MPV Immature Gran % (Auto) Neut % (Auto) Lymph % (Auto) [place] % (Auto) Eos % (Auto) Baso % (Auto) Lymph # (Auto) [place] # (Auto) Eos # (Auto) Baso # (Auto) Abs Immat Gran (auto) Absolute Neuts (auto) Absolute Nucleated RBC Nucleated RBC % (auto) PT INR APTT aPTT Heparin Protocol D-Dimer High Sensitivty O2 Saturation ABG pH at Pt Temp ABG pCO2 at Pt Temp ABG pO2 at Pt Temp ABG HCO3 ABG Base Excess (Actual) VBG pH VBG pCO2 VBG pO2 VBG HCO3 VBG O2 Saturation VBG Base Excess Sodium Potassium Chloride Carbon Dioxide Anion Gap BUN Creatinine Estim Creat Clear Calc Estimated GFR POC Glucose Random Glucose Lactic Acid Calcium Phosphorus Magnesium Total Bilirubin Direct Bilirubin AST ALT Alkaline Phosphatase Troponin I High Sens B-Natriuretic Peptide Total Protein Albumin Lipase Urine Color Urine Appearance Urine pH Ur Specific [place] Urine Protein Urine Glucose (UA) Urine Ketones Urine Blood Urine Nitrite Ur Leukocyte Esterase Urine RBC Urine WBC Ur Squamous Epith Cells Urine Bacteria Hyaline Casts Ur Random Sodium Ur Random Potassium Ur Random Chloride Influenza Type A (PCR) Influenza Type B (PCR) RSV RNA Qual (PCR) SARS-CoV-2 RNA (RT-PCR) 02/01/24 02/01/24 02/01/24 04:00 04:00 04:00 WBC RBC Hgb Cancelled Hct 25.0 L D Cancelled MCV 91.9 Cancelled MCH 31.6 MCHC RDW Plt Count MPV Immature Gran % (Auto) Neut % (Auto) Lymph % (Auto) [place] % (Auto) Eos % (Auto) Baso % (Auto) Lymph # (Auto) [place] # (Auto) Eos # (Auto) Baso # (Auto) Abs Immat Gran (auto) Absolute Neuts (auto) Absolute Nucleated RBC Nucleated RBC % (auto) PT INR APTT aPTT Heparin Protocol D-Dimer High Sensitivty O2 Saturation ABG pH at Pt Temp ABG pCO2 at Pt Temp ABG pO2 at Pt Temp ABG HCO3 ABG Base Excess (Actual) VBG pH VBG pCO2 VBG pO2 VBG HCO3 VBG O2 Saturation VBG Base Excess Sodium Potassium Chloride Carbon Dioxide Anion Gap BUN Creatinine Estim Creat Clear Calc Estimated GFR POC Glucose Random Glucose Lactic Acid Calcium Phosphorus Magnesium Total Bilirubin Direct Bilirubin AST ALT Alkaline Phosphatase Troponin I High Sens B-Natriuretic Peptide Total Protein Albumin Lipase Urine Color Urine Appearance Urine pH Ur Specific [place] Urine Protein Urine Glucose (UA) Urine Ketones Urine Blood Urine Nitrite Ur Leukocyte Esterase Urine RBC Urine WBC Ur Squamous Epith Cells Urine Bacteria Hyaline Casts Ur Random Sodium Ur Random Potassium Ur Random Chloride Influenza Type A (PCR) Influenza Type B (PCR) RSV RNA Qual (PCR) SARS-CoV-2 RNA (RT-PCR) 02/01/24 02/01/24 02/01/24 04:00 04:00 04:00 WBC RBC Hgb Hct MCV MCH Cancelled MCHC 34.4 Cancelled RDW 14.6 Cancelled Plt Count 241 MPV Immature Gran % (Auto) Neut % (Auto) Lymph % (Auto) [place] % (Auto) Eos % (Auto) Baso % (Auto) Lymph # (Auto) [place] # (Auto) Eos # (Auto) Baso # (Auto) Abs Immat Gran (auto) Absolute Neuts (auto) Absolute Nucleated RBC Nucleated RBC % (auto) PT INR APTT aPTT Heparin Protocol D-Dimer High Sensitivty O2 Saturation ABG pH at Pt Temp ABG pCO2 at Pt Temp ABG pO2 at Pt Temp ABG HCO3 ABG Base Excess (Actual) VBG pH VBG pCO2 VBG pO2 VBG HCO3 VBG O2 Saturation VBG Base Excess Sodium Potassium Chloride Carbon Dioxide Anion Gap BUN Creatinine Estim Creat Clear Calc Estimated GFR POC Glucose Random Glucose Lactic Acid Calcium Phosphorus Magnesium Total Bilirubin Direct Bilirubin AST ALT Alkaline Phosphatase Troponin I High Sens B-Natriuretic Peptide Total Protein Albumin Lipase Urine Color Urine Appearance Urine pH Ur Specific [place] Urine Protein Urine Glucose (UA) Urine Ketones Urine Blood Urine Nitrite Ur Leukocyte Esterase Urine RBC Urine WBC Ur Squamous Epith Cells Urine Bacteria Hyaline Casts Ur Random Sodium Ur Random Potassium Ur Random Chloride Influenza Type A (PCR) Influenza Type B (PCR) RSV RNA Qual (PCR) SARS-CoV-2 RNA (RT-PCR) 02/01/24 02/01/24 02/01/24 04:00 04:00 04:00 WBC RBC Hgb Hct MCV MCH MCHC RDW Plt Count Cancelled MPV 12.5 H Cancelled Immature Gran % (Auto) 0.5 H Neut % (Auto) 77.6 H Lymph % (Auto) 12.1 L [place] % (Auto) 4.6 Eos % (Auto) 4.8 H Baso % (Auto) 0.4 Lymph # (Auto) 0.9 L [place] # (Auto) 0.3 Eos # (Auto) 0.4 Baso # (Auto) 0.0 Abs Immat Gran (auto) 0.04 H Absolute Neuts (auto) 5.8 Absolute Nucleated RBC 0.040 H Cancelled Nucleated RBC % (auto) 0.5 H PT INR APTT aPTT Heparin Protocol D-Dimer High Sensitivty O2 Saturation ABG pH at Pt Temp ABG pCO2 at Pt Temp ABG pO2 at Pt Temp ABG HCO3 ABG Base Excess (Actual) VBG pH VBG pCO2 VBG pO2 VBG HCO3 VBG O2 Saturation VBG Base Excess Sodium Potassium Chloride Carbon Dioxide Anion Gap BUN Creatinine Estim Creat Clear Calc Estimated GFR POC Glucose Random Glucose Lactic Acid Calcium Phosphorus Magnesium Total Bilirubin Direct Bilirubin AST ALT Alkaline Phosphatase Troponin I High Sens B-Natriuretic Peptide Total Protein Albumin Lipase Urine Color Urine Appearance Urine pH Ur Specific [place] Urine Protein Urine Glucose (UA) Urine Ketones Urine Blood Urine Nitrite Ur Leukocyte Esterase Urine RBC Urine WBC Ur Squamous Epith Cells Urine Bacteria Hyaline Casts Ur Random Sodium Ur Random Potassium Ur Random Chloride Influenza Type A (PCR) Influenza Type B (PCR) RSV RNA Qual (PCR) SARS-CoV-2 RNA (RT-PCR) 02/01/24 02/01/24 02/01/24 04:00 07:55 10:07 WBC RBC Hgb Hct MCV MCH MCHC RDW Plt Count MPV Immature Gran % (Auto) Neut % (Auto) Lymph % (Auto) [place] % (Auto) Eos % (Auto) Baso % (Auto) Lymph # (Auto) [place] # (Auto) Eos # (Auto) Baso # (Auto) Abs Immat Gran (auto) Absolute Neuts (auto) Absolute Nucleated RBC Nucleated RBC % (auto) Cancelled PT 14.7 H INR 1.2 H APTT aPTT Heparin Protocol 94.0 H D 54.0 D D-Dimer High Sensitivty O2 Saturation ABG pH at Pt Temp ABG pCO2 at Pt Temp ABG pO2 at Pt Temp ABG HCO3 ABG Base Excess (Actual) VBG pH VBG pCO2 VBG pO2 VBG HCO3 VBG O2 Saturation VBG Base Excess Sodium 140 Potassium 4.0 Chloride 107 Carbon Dioxide 20 L Anion Gap 17 BUN 101 H Creatinine 6.20 H* Estim Creat Clear Calc 8.8 Estimated GFR 7 POC Glucose 164 H Random Glucose 143 H Lactic Acid Calcium 7.5 L Phosphorus 6.7 H Magnesium 2.3 Total Bilirubin 0.3 Direct Bilirubin AST 36 H ALT 64 H Alkaline Phosphatase 36 L Troponin I High Sens 77463.7 H* B-Natriuretic Peptide Total Protein 5.2 L Albumin 2.6 L Lipase Urine Color Urine Appearance Urine pH Ur Specific [place] Urine Protein Urine Glucose (UA) Urine Ketones Urine Blood Urine Nitrite Ur Leukocyte Esterase Urine RBC Urine WBC Ur Squamous Epith Cells Urine Bacteria Hyaline Casts Ur Random Sodium Ur Random Potassium Ur Random Chloride Influenza Type A (PCR) Influenza Type B (PCR) RSV RNA Qual (PCR) SARS-CoV-2 RNA (RT-PCR) Microbiology Microbiology Results: Microbiology 01/31/24 Unknown Urine Catheterized - Carranza Catheter Urine Culture - Final No growth. Progress Note: A&P Assessment and plan (1) Non-ST elevation [place] (NSTEMI): Status: Acute (2) SUPRIYA (acute kidney injury): Status: Acute (3) Diabetes: Status: Acute (4) Acute hypoxic respiratory failure: Status: Acute Plan Assessment: 60-year-old lady admitted with hypoxia, SUPRIYA, and NSTEMI Plan: Neuro: No acute issues. Cardiac: NSTEMI, now with recurrent left-sided pain ischemic changes, but no overt ST elevation. Continues on heparin drip. Cardiology service care appreciated. Pulmonary: Acute hypoxic respiratory failure likely secondary to cardiac pulmonary edema. Continue to titrate supplemental oxygen as tolerated. V/Q scan negative for PE. Renal: Acute renal failure. CT abdomen with no evidence of obstruction. No evidence of UTI. Likely secondary to poor forward flow. Oliguric. Nephrology service care appreciated. Now off bicarbonate drip. Endo: No acute issues. GI: No acute issues. ID: Blood cultures are pending. Urine culture is negative. Now on empiric Levaquin. Heme/Onc: Dilutional versus acute blood loss anemia. Stool occult blood is pending. Continue to monitor hemoglobin level. Psych: No acute issues. Miscellaneous: No acute issues. Prophylaxis: Heparin drip Diet: NPO Critical care time spent: 60 minutes Quality Stroke Does the patient have a stroke diagnosis?: No VTE Prior VTE?: No VTE Risk Level:: Medical - moderate - high VTE Device Contraindication: Treatment Not Indicated VTE Drug Contraindication: N/A - Med Ordered
[2024-02-01] MEDS: Lidocaine 4 % Patch ADH..PATCH 1 PATCH TRANSDERMA (11:28)
--- NOTE | 2024-02-01 11:30 | PM.DS ---
DS: Providers Provider Date of Service: 02/01/24 Date of admission: 01/31/24 14:41 Primary care physician: Doyle Ayala MD Consults: 02/01/24 09:03 Consult to Cardiology Stat Consulting Provider[place] [facility] [place] [facility] Reason for consultation: NSTEMI, ongoing ischemia Has provider been notified: Yes DS: Transfer Hospital Acceptance Reason for Transfer: Further evaluation Name of Facility: [facility] intensive care unit DS: Diagnosis Discharge Diagnosis (1) Non-ST elevation IN (NSTEMI): Status: Acute (2) SUPRIYA (acute kidney injury): Status: Acute (3) Acute cardiac pulmonary edema: Status: Acute DS: Summary Hospital Course Hospital Course: 68-year-old lady with underlying history of diabetes mellitus, hyperlipidemia admitted on 01/31/2024 with dyspnea slowly progressive over the last 4 days. On ER evaluation patient with significant hypoxia, acute renal failure, and elevated troponin but no significant ST changes. Patient was started heparin drip for NSTEMI. Empiric antibiotics for possible UTI, and bicarbonate drip and admitted to intensive care unit. Overnight with rising troponin recurrent left-sided chest pain requiring opioids for control. EKG with ischemic changes, but no overt ST elevation. Patient re-evaluated by Cardiology service and transfer to [facility] for possible right/left heart catheterization requested and granted. Current medications: Heparin drip, insulin sliding scale protocol, lidocaine patch Time Attestation Discharge Coordination Time (in mins): 30 Quality: Safe Use of Opioids Does Pt have an Active Cancer Diagnosis on the Problem List?: No Quality: Stroke Does the patient have a stroke diagnosis?: No Physical Exam Vital Signs: Vital Signs: Last Vital Signs Temp 97.3 F 02/01/24 04:00 Pulse 84 02/01/24 11:00 Resp 18 02/01/24 11:07 BP 164/84 H 02/01/24 11:00 Pulse Ox 90 L 02/01/24 11:00 O2 Del Method High Flow Nasal C annula 02/01/24 11:00 O2 Flow Rate 40 02/01/24 11:00 FiO2 60 02/01/24 11:00 Oxygen Flow Rate 12 01/31/24 11:59 BMI result Body Mass Index 35.3 Const: General: no acute distress, alert and awake Eyes: Sclerae: sclerae normal EOM: EOMs intact bilaterally Neck: Neck: Yes no lymphadenopathy, Yes trachea midline and Yes supple Resp: Effort & Inspection: normal respiratory effort and no respiratory distress Auscultation: crackles (Bilateral) Cardio: Rate: regular rate Rhythm: regular rhythm Heart sounds: no gallops, no murmurs and no rubs GI: Palpation (GI): Soft to palpation and Other GI palpation findings present ( Nontender) Auscultation: normal bowel sounds Extrem: General: No clubbing, No cyanosis and Yes edema (Trace bilateral) DS: Data Data Completed and Pending Labs on day of discharge: Laboratory Results - last 24 hr 01/31/24 01/31/24 01/31/24 12:19 13:08 13:18 WBC 9.4 RBC 3.45 L Hgb 10.7 L Hct 31.7 L MCV 91.9 MCH 31.0 MCHC 33.8 RDW 15.1 Plt Count 295 MPV 12.4 H Immature Gran % (Auto) 0.4 Neut % (Auto) 86.0 H Lymph % (Auto) 8.3 L Robeson % (Auto) 3.7 Eos % (Auto) 1.3 Baso % (Auto) 0.3 Lymph # (Auto) 0.8 L [place] # (Auto) 0.4 Eos # (Auto) 0.1 Baso # (Auto) 0.0 Abs Immat Gran (auto) 0.04 H Absolute Neuts (auto) 8.1 Absolute Nucleated RBC 0.050 H Nucleated RBC % (auto) 0.5 H PT 12.4 INR 1.0 APTT 27.1 aPTT Heparin Protocol D-Dimer High Sensitivty 837 O2 Saturation 91.0 ABG pH at Pt Temp 7.37 ABG pCO2 at Pt Temp 22 L ABG pO2 at Pt Temp 70 L ABG HCO3 13 L ABG Base Excess (Actual) -9.9 VBG pH VBG pCO2 VBG pO2 VBG HCO3 VBG O2 Saturation VBG Base Excess Sodium 138 Potassium 4.9 Chloride 104 Carbon Dioxide 15 L Anion Gap 24 H BUN 109 H Creatinine 6.86 H* Estim Creat Clear Calc 7.9 Estimated GFR 6 POC Glucose Random Glucose 175 H Lactic Acid Calcium 8.5 Phosphorus Magnesium Total Bilirubin 0.5 Direct Bilirubin 0.2 AST 57 H ALT 96 H Alkaline Phosphatase 49 Troponin I High Sens 66669.9 H* B-Natriuretic Peptide 8451 H Total Protein 7.0 Albumin 3.3 L Lipase 20 Urine Color Yellow Urine Appearance Clear Urine pH 7.5 Ur Specific [place] 1.020 Urine Protein >=1000 (4+) H Urine Glucose (UA) 100 H Urine Ketones Trace Urine Blood Small (1+) H Urine Nitrite Negative Ur Leukocyte Esterase Trace H Urine RBC 11-20 H Urine WBC 11-20 H Ur Squamous Epith Cells 0-2 Urine Bacteria 1+ Hyaline Casts 0-2 Ur Random Sodium < 20.0 Ur Random Potassium 51.4 Ur Random Chloride < 20.0 Influenza Type A (PCR) NEGATIVE Influenza Type B (PCR) NEGATIVE RSV RNA Qual (PCR) NEGATIVE SARS-CoV-2 RNA (RT-PCR) NEGATIVE 01/31/24 01/31/24 01/31/24 14:33 17:26 18:02 WBC 8.2 RBC 3.65 L Hgb 11.4 L Hct 35.2 L MCV 96.4 MCH 31.2 MCHC 32.4 RDW 15.4 Plt Count 293 MPV 12.8 H Immature Gran % (Auto) Neut % (Auto) Lymph % (Auto) Rob[place] % (Auto) Eos % (Auto) Baso % (Auto) Lymph # (Auto) [place] # (Auto) Eos # (Auto) Baso # (Auto) Abs Immat Gran (auto) Absolute Neuts (auto) Absolute Nucleated RBC 0.040 H Nucleated RBC % (auto) 0.5 H PT INR APTT aPTT Heparin Protocol D-Dimer High Sensitivty O2 Saturation ABG pH at Pt Temp ABG pCO2 at Pt Temp ABG pO2 at Pt Temp ABG HCO3 ABG Base Excess (Actual) VBG pH VBG pCO2 VBG pO2 VBG HCO3 VBG O2 Saturation VBG Base Excess Sodium 139 Potassium 4.2 Chloride 107 Carbon Dioxide 15 L Anion Gap 21 H BUN 103 H Creatinine 6.27 H* Estim Creat Clear Calc 8.7 Estimated GFR 7 POC Glucose 162 H Random Glucose 176 H Lactic Acid 1.8 Calcium 7.6 L D Phosphorus Magnesium Total Bilirubin Direct Bilirubin AST ALT Alkaline Phosphatase Troponin I High Sens B-Natriuretic Peptide Total Protein Albumin Lipase Urine Color Urine Appearance Urine pH Ur Specific [place] Urine Protein Urine Glucose (UA) Urine Ketones Urine Blood Urine Nitrite Ur Leukocyte Esterase Urine RBC Urine WBC Ur Squamous Epith Cells Urine Bacteria Hyaline Casts Ur Random Sodium Ur Random Potassium Ur Random Chloride Influenza Type A (PCR) Influenza Type B (PCR) RSV RNA Qual (PCR) SARS-CoV-2 RNA (RT-PCR) 01/31/24 01/31/24 02/01/24 20:48 21:23 03:58 WBC RBC Hgb Hct MCV MCH MCHC RDW Plt Count MPV Immature Gran % (Auto) Neut % (Auto) Lymph % (Auto) Rob[place] % (Auto) Eos % (Auto) Baso % (Auto) Lymph # (Auto) [place] # (Auto) Eos # (Auto) Baso # (Auto) Abs Immat Gran (auto) Absolute Neuts (auto) Absolute Nucleated RBC Nucleated RBC % (auto) PT INR APTT aPTT Heparin Protocol 43.4 L D-Dimer High Sensitivty O2 Saturation ABG pH at Pt Temp ABG pCO2 at Pt Temp ABG pO2 at Pt Temp ABG HCO3 ABG Base Excess (Actual) VBG pH 7.41 VBG pCO2 31 VBG pO2 40 VBG HCO3 20 L VBG O2 Saturation 63.0 VBG Base Excess -3.4 Sodium Potassium Chloride Carbon Dioxide Anion Gap BUN Creatinine Estim Creat Clear Calc Estimated GFR POC Glucose 154 H Random Glucose Lactic Acid Calcium Phosphorus Magnesium Total Bilirubin Direct Bilirubin AST ALT Alkaline Phosphatase Troponin I High Sens 14897.5 H* B-Natriuretic Peptide Total Protein Albumin Lipase Urine Color Urine Appearance Urine pH Ur Specific [place] Urine Protein Urine Glucose (UA) Urine Ketones Urine Blood Urine Nitrite Ur Leukocyte Esterase Urine RBC Urine WBC Ur Squamous Epith Cells Urine Bacteria Hyaline Casts Ur Random Sodium Ur Random Potassium Ur Random Chloride Influenza Type A (PCR) Influenza Type B (PCR) RSV RNA Qual (PCR) SARS-CoV-2 RNA (RT-PCR) 02/01/24 02/01/24 02/01/24 04:00 04:00 04:00 WBC 7.5 Cancelled RBC 2.72 L D Cancelled Hgb 8.6 L D Hct MCV MCH MCHC RDW Plt Count MPV Immature Gran % (Auto) Neut % (Auto) Lymph % (Auto) [place] % (Auto) Eos % (Auto) Baso % (Auto) Lymph # (Auto) [place] # (Auto) Eos # (Auto) Baso # (Auto) Abs Immat Gran (auto) Absolute Neuts (auto) Absolute Nucleated RBC Nucleated RBC % (auto) PT INR APTT aPTT Heparin Protocol D-Dimer High Sensitivty O2 Saturation ABG pH at Pt Temp ABG pCO2 at Pt Temp ABG pO2 at Pt Temp ABG HCO3 ABG Base Excess (Actual) VBG pH VBG pCO2 VBG pO2 VBG HCO3 VBG O2 Saturation VBG Base Excess Sodium Potassium Chloride Carbon Dioxide Anion Gap BUN Creatinine Estim Creat Clear Calc Estimated GFR POC Glucose Random Glucose Lactic Acid Calcium Phosphorus Magnesium Total Bilirubin Direct Bilirubin AST ALT Alkaline Phosphatase Troponin I High Sens B-Natriuretic Peptide Total Protein Albumin Lipase Urine Color Urine Appearance Urine pH Ur Specific [place] Urine Protein Urine Glucose (UA) Urine Ketones Urine Blood Urine Nitrite Ur Leukocyte Esterase Urine RBC Urine WBC Ur Squamous Epith Cells Urine Bacteria Hyaline Casts Ur Random Sodium Ur Random Potassium Ur Random Chloride Influenza Type A (PCR) Influenza Type B (PCR) RSV RNA Qual (PCR) SARS-CoV-2 RNA (RT-PCR) 02/01/24 02/01/24 02/01/24 04:00 04:00 04:00 WBC RBC Hgb Cancelled Hct 25.0 L D Cancelled MCV 91.9 Cancelled MCH 31.6 MCHC RDW Plt Count MPV Immature Gran % (Auto) Neut % (Auto) Lymph % (Auto) [place] % (Auto) Eos % (Auto) Baso % (Auto) Lymph # (Auto) [place] # (Auto) Eos # (Auto) Baso # (Auto) Abs Immat Gran (auto) Absolute Neuts (auto) Absolute Nucleated RBC Nucleated RBC % (auto) PT INR APTT aPTT Heparin Protocol D-Dimer High Sensitivty O2 Saturation ABG pH at Pt Temp ABG pCO2 at Pt Temp ABG pO2 at Pt Temp ABG HCO3 ABG Base Excess (Actual) VBG pH VBG pCO2 VBG pO2 VBG HCO3 VBG O2 Saturation VBG Base Excess Sodium Potassium Chloride Carbon Dioxide Anion Gap BUN Creatinine Estim Creat Clear Calc Estimated GFR POC Glucose Random Glucose Lactic Acid Calcium Phosphorus Magnesium Total Bilirubin Direct Bilirubin AST ALT Alkaline Phosphatase Troponin I High Sens B-Natriuretic Peptide Total Protein Albumin Lipase Urine Color Urine Appearance Urine pH Ur Specific [place] Urine Protein Urine Glucose (UA) Urine Ketones Urine Blood Urine Nitrite Ur Leukocyte Esterase Urine RBC Urine WBC Ur Squamous Epith Cells Urine Bacteria Hyaline Casts Ur Random Sodium Ur Random Potassium Ur Random Chloride Influenza Type A (PCR) Influenza Type B (PCR) RSV RNA Qual (PCR) SARS-CoV-2 RNA (RT-PCR) 03/02/01/24 02/01/24 04:00 04:00 04:00 WBC RBC Hgb Hct MCV MCH Cancelled MCHC 34.4 Cancelled RDW 14.6 Cancelled Plt Count 241 MPV Immature Gran % (Auto) Neut % (Auto) Lymph % (Auto) [place] % (Auto) Eos % (Auto) Baso % (Auto) Lymph # (Auto) [place] # (Auto) Eos # (Auto) Baso # (Auto) Abs Immat Gran (auto) Absolute Neuts (auto) Absolute Nucleated RBC Nucleated RBC % (auto) PT INR APTT aPTT Heparin Protocol D-Dimer High Sensitivty O2 Saturation ABG pH at Pt Temp ABG pCO2 at Pt Temp ABG pO2 at Pt Temp ABG HCO3 ABG Base Excess (Actual) VBG pH VBG pCO2 VBG pO2 VBG HCO3 VBG O2 Saturation VBG Base Excess Sodium Potassium Chloride Carbon Dioxide Anion Gap BUN Creatinine Estim Creat Clear Calc Estimated GFR POC Glucose Random Glucose Lactic Acid Calcium Phosphorus Magnesium Total Bilirubin Direct Bilirubin AST ALT Alkaline Phosphatase Troponin I High Sens B-Natriuretic Peptide Total Protein Albumin Lipase Urine Color Urine Appearance Urine pH Ur Specific [place] Urine Protein Urine Glucose (UA) Urine Ketones Urine Blood Urine Nitrite Ur Leukocyte Esterase Urine RBC Urine WBC Ur Squamous Epith Cells Urine Bacteria Hyaline Casts Ur Random Sodium Ur Random Potassium Ur Random Chloride Influenza Type A (PCR) Influenza Type B (PCR) RSV RNA Qual (PCR) SARS-CoV-2 RNA (RT-PCR) 02/01/24 02/01/24 02/01/24 04:00 04:00 04:00 WBC RBC Hgb Hct MCV MCH MCHC RDW Plt Count Cancelled MPV 12.5 H Cancelled Immature Gran % (Auto) 0.5 H Neut % (Auto) 77.6 H Lymph % (Auto) 12.1 L Rob[place] % (Auto) 4.6 Eos % (Auto) 4.8 H Baso % (Auto) 0.4 Lymph # (Auto) 0.9 L [place] # (Auto) 0.3 Eos # (Auto) 0.4 Baso # (Auto) 0.0 Abs Immat Gran (auto) 0.04 H Absolute Neuts (auto) 5.8 Absolute Nucleated RBC 0.040 H Cancelled Nucleated RBC % (auto) 0.5 H PT INR APTT aPTT Heparin Protocol D-Dimer High Sensitivty O2 Saturation ABG pH at Pt Temp ABG pCO2 at Pt Temp ABG pO2 at Pt Temp ABG HCO3 ABG Base Excess (Actual) VBG pH VBG pCO2 VBG pO2 VBG HCO3 VBG O2 Saturation VBG Base Excess Sodium Potassium Chloride Carbon Dioxide Anion Gap BUN Creatinine Estim Creat Clear Calc Estimated GFR POC Glucose Random Glucose Lactic Acid Calcium Phosphorus Magnesium Total Bilirubin Direct Bilirubin AST ALT Alkaline Phosphatase Troponin I High Sens B-Natriuretic Peptide Total Protein Albumin Lipase Urine Color Urine Appearance Urine pH Ur Specific [place] Urine Protein Urine Glucose (UA) Urine Ketones Urine Blood Urine Nitrite Ur Leukocyte Esterase Urine RBC Urine WBC Ur Squamous Epith Cells Urine Bacteria Hyaline Casts Ur Random Sodium Ur Random Potassium Ur Random Chloride Influenza Type A (PCR) Influenza Type B (PCR) RSV RNA Qual (PCR) SARS-CoV-2 RNA (RT-PCR) 02/01/24 02/01/24 02/01/24 04:00 07:55 10:07 WBC RBC Hgb Hct MCV MCH MCHC RDW Plt Count MPV Immature Gran % (Auto) Neut % (Auto) Lymph % (Auto) [place] % (Auto) Eos % (Auto) Baso % (Auto) Lymph # (Auto) [place] # (Auto) Eos # (Auto) Baso # (Auto) Abs Immat Gran (auto) Absolute Neuts (auto) Absolute Nucleated RBC Nucleated RBC % (auto) Cancelled PT 14.7 H INR 1.2 H APTT aPTT Heparin Protocol 94.0 H D 54.0 D D-Dimer High Sensitivty O2 Saturation ABG pH at Pt Temp ABG pCO2 at Pt Temp ABG pO2 at Pt Temp ABG HCO3 ABG Base Excess (Actual) VBG pH VBG pCO2 VBG pO2 VBG HCO3 VBG O2 Saturation VBG Base Excess Sodium 140 Potassium 4.0 Chloride 107 Carbon Dioxide 20 L Anion Gap 17 BUN 101 H Creatinine 6.20 H* Estim Creat Clear Calc 8.8 Estimated GFR 7 POC Glucose 164 H Random Glucose 143 H Lactic Acid Calcium 7.5 L Phosphorus 6.7 H Magnesium 2.3 Total Bilirubin 0.3 Direct Bilirubin AST 36 H ALT 64 H Alkaline Phosphatase 36 L Troponin I High Sens 32377.7 H* B-Natriuretic Peptide Total Protein 5.2 L Albumin 2.6 L Lipase Urine Color Urine Appearance Urine pH Ur Specific [place] Urine Protein Urine Glucose (UA) Urine Ketones Urine Blood Urine Nitrite Ur Leukocyte Esterase Urine RBC Urine WBC Ur Squamous Epith Cells Urine Bacteria Hyaline Casts Ur Random Sodium Ur Random Potassium Ur Random Chloride Influenza Type A (PCR) Influenza Type B (PCR) RSV RNA Qual (PCR) SARS-CoV-2 RNA (RT-PCR) Discharge Plan Discharge Anticipated Discharge Date/Time: 02/01/24 11:33 Patient Disposition: Xfer Acute [facility] Discharge Diagnosis: NSTEMI Referrals: Doyle Ayala MD [Primary Care Provider] - 1 Week Discharge Medications: Continued (DME) blood-glucose meter [OneTouch Verio Meter] Misc See Rx Instructions .Route Qty: 1 0RF Rx Instructions: As directed- tests 4 X/day (DME) OneTouch Verio test strips Strip See Rx Instructions .Route Qty: 100 5RF Rx Instructions: As directed tests 4 X/day (DME) lancets [OneTouch Delica Lancets] 30 gauge misc See Rx Instructions .ROUTE .MEDSUPPLY Qty: 100 4RF Rx Instructions: As directed test BG 4x day quetiapine 50 mg tablet 50 mg PO BEDTIME Qty: 30 0RF insulin lispro [Humalog KwikPen Insulin] 100 unit/mL insulin pen 1 sliding scale dose subcut QIDACHS insulin glargine [Lantus Solostar U-100 Insulin] 100 unit/mL (3 mL) insulin pen 6 unit subcut BEDTIME (DME) pen needle, diabetic [BD Ultra-Fine Micro Pen Needle] 32 gauge x 1/4 needle See Rx Instructions .ROUTE .MEDSUPPLY Rx Instructions: Daily As directed once a day, 90 days nifedipine 60 mg tablet extended release 60 mg PO DAILY Discharge Orders: Discharge Order (Routine); Ordered 02/01/24 Ordered By: Vincenzo Gutierrez Activity on Discharge: Bedrest Stand Alone Forms: Patient Portal Discharge page Care Plan Goals: Continue with further clinical evaluation Health Concerns: NSTEMI, pulmonary edema, SUPRIYA Plan of Treatment: ? Left versus right heart catheterization Assessment: Patient in what appears to be cardiac pulmonary and SUPRIYA secondary to underlying NSTEMI.
[2024-02-01 11:43] LABS: Glucose, Whole Blood 165 mg/dL (60-115)
--- NOTE | 2024-02-01 12:23 | MHC.CM.PN ---
IMM 02/01/24 FEMALE DX PNA NSTEMI [facility]ES WITH [facility] [place] [facility] [place]
== END 2024-02-01 12:15 | disposition short-term general hospital (02) | DRG 871 ==
LOC: HO.ED 12:33 → HO.EDOVER 15:38 → HO.ICU 16:03
PROVIDERS: Nurse Practitioner Family; Admitting Provider Internal Medicine Pulmonary Disease; Emergency Provider Emergency Medicine; PCP Family Medicine; Visit Provider Internal Medicine Pulmonary Disease
DX: A41.9 Sepsis, unspecified organism (principal); I21.4 Non-ST elevation (NSTEMI) myocardial infarction; J18.9 Pneumonia, unspecified organism; J96.01 Acute respiratory failure with hypoxia; N17.0 Acute kidney failure with tubular necrosis; J81.0 Acute pulmonary edema; R31.9 Hematuria, unspecified; R65.20 Severe sepsis without septic shock; E78.5 Hyperlipidemia, unspecified; E86.0 Dehydration; N18.9 Chronic kidney disease, unspecified; E11.22 Type 2 diabetes mellitus with diabetic chronic kidney disease; Z20.822 Contact with and (suspected) exposure to COVID-19; Z87.891 Personal history of nicotine dependence; Z79.4 Long term (current) use of insulin; Z79.899 Other long term (current) drug therapy
CPT/HCPCS: 0241U; 36415; 71045; 74176; 78580; 80048; 80053; 80076; 81001; 82436; 82803; 82947; 83605; 83690; 83735; 83880; 84100; 84133; 84300; 84484; 85025; 85027; 85379; 85610; 85730; 87040; 87086; 93005; 99285; A9540; C1758; J0696; J1644; J1956; J2270; J2405; J2543; J3010; P9047

== ENCOUNTER 2024-01-31 14:41 | Outpatient (BNV) | payer MEDICARE, SELFPAY | END 2024-02-01 06:13 | PROVIDERS: Admitting Provider Internal Medicine Pulmonary Disease; Emergency Provider Emergency Medicine; PCP Family Medicine; Visit Provider Internal Medicine | DX: R07.9 Chest pain, unspecified (principal); R94.31 Abnormal electrocardiogram [ECG] [EKG] | CPT/HCPCS: 93010 ==

== ENCOUNTER → 2024-01-31 14:41 | Outpatient (BNV) | payer MEDICARE, SELFPAY | PROVIDERS: Admitting Provider Internal Medicine Pulmonary Disease; Emergency Provider Emergency Medicine; PCP Family Medicine; Visit Provider Internal Medicine Pulmonary Disease | DX: I21.4 Non-ST elevation (NSTEMI) myocardial infarction (principal); N17.9 Acute kidney failure, unspecified; J96.01 Acute respiratory failure with hypoxia; E11.9 Type 2 diabetes mellitus without complications; I50.1 Left ventricular failure, unspecified | CPT/HCPCS: 99238; 99291 ==

== ENCOUNTER → 2024-01-31 14:41 | Outpatient (BNV) | payer MEDICARE, SELFPAY | PROVIDERS: Admitting Provider Internal Medicine Pulmonary Disease; Emergency Provider Emergency Medicine; PCP Family Medicine; Visit Provider Nurse Practitioner Family | DX: I21.4 Non-ST elevation (NSTEMI) myocardial infarction (principal); A41.9 Sepsis, unspecified organism; R65.20 Severe sepsis without septic shock; J18.9 Pneumonia, unspecified organism; N17.9 Acute kidney failure, unspecified; N39.0 Urinary tract infection, site not specified; R31.9 Hematuria, unspecified | CPT/HCPCS: 99291 ==

== ENCOUNTER → 2024-01-31 14:41 | Outpatient (BNV) | payer MEDICARE, SELFPAY | PROVIDERS: Admitting Provider Internal Medicine Pulmonary Disease; Emergency Provider Emergency Medicine; PCP Family Medicine; Visit Provider Internal Medicine | DX: I21.4 Non-ST elevation (NSTEMI) myocardial infarction (principal); N17.9 Acute kidney failure, unspecified; J96.01 Acute respiratory failure with hypoxia | CPT/HCPCS: 93010; 99291; 99292 ==